=== PATIENT | male | born 1960 | race Caucasian/White ===

== ENCOUNTER → 2018-02-09 08:49 | Outpatient (CLI) | payer MEDICARE, MEDICAID, SELFPAY ==
--- NOTE | 2018-02-10 08:31 | PFT ---
INTRODUCTION: The patient is a 57-year-old male who presents for pulmonary function testing secondary to a diagnosis of COPD. Respiratory therapy reports good patient effort and reports no other concerns. INTERPRETATION: Forced expiration spirometry demonstrates the presence of a mild large airways obstructive ventilatory defect. Spirograms are of good quality and do not plateau indicating slow emptying of the lungs. Body plethysmography was performed and reveals lung volumes to be within normal limits. Diffusing capacity by single breath CO is within normal limits at 92% of predicted. IMPRESSION: These pulmonary function studies demonstrate the presence of a mild large airways obstructive ventilatory defect. Lung volumes and diffusing capacity are within normal limits. There are no previous pulmonary function studies available for comparison.
== END ==
DX: J44.9 Chronic obstructive pulmonary disease, unspecified (principal)
CPT/HCPCS: 94010; 94726; 94729; 94762

== ENCOUNTER → 2018-02-11 09:50 | Outpatient (CLI) | payer MEDICARE, MEDICAID, SELFPAY ==
[2018-02-11 09:55] VITALS: PULSE 75; PULSE 85; PULSE 87; PULSE 88; PULSE 89; PULSE 93; PULSE 95; O2SAT 97; O2SAT 98; O2SAT 99
--- OUTSIDE RECORDS SUMMARY | 2018-02-11 11:40 | XMS RPT_ITS ---
:1960 Author Organization OHIP Support Name Relationship Address Phone D Unavailable Unavailable Unavailable BARAHONA, CHINTAN Unavailable [address] + [address] [place] [address] D Unavailable Unavailable Unavailable BARAHONA, CHINTAN Unavailable [address] + [address] [place] [address] TEJA, CHINTAN Unavailable [address] + [place] [address] TEJA, CHINTAN Unavailable [address] + [place] [address] TEJA, CHINTAN Unavailable [address] + [place] [address] TEJA, CHINTAN Unavailable [address] + [place] [address] TEJA, CHINTAN Unavailable [address] + [place] [address] TEJA, CHINTAN Unavailable [address] [place] [address] TEJA, CHINTAN Unavailable [address] + [place] [address] TEJA, CHINTAN Unavailable [address] + [place] [address] TEJA, CHINTAN Unavailable [address] + [place] [address] TEJA, CHINTAN Unavailable [address] + [place] [address] TEJA, CHINTAN Unavailable [address] + [place] [address] TEJA, CHINTAN Unavailable [address] + [place] [address] TEJA, CHINTAN Unavailable Unavailable + TEJA, CHINTAN Unavailable [address] + [place] [address] Care Team Providers Name Role Phone ENEIDA CALABRESE Attending Unavailable ENEIDA CALABRESE Referring Unavailable Primay Care Physicia, No Primary Care Unavailable ENEIDA CALABRESE Consulting Unavailable ENEIDA CALABRESE Attending Unavailable ENEIDA CALABRESE Referring Unavailable Primay Care Physicia, No Primary Care Unavailable ENEIDA CALABRESE Consulting Unavailable PHYSICIAN, NONE Primary Care Unavailable POLO NEVAREZ, DR. MARY Smith Admitting Unavailable POLO NEVAREZ, DR. MARY Smith Attending Unavailable PHYSICIAN, NONE Referring Unavailable PHYSICIAN, NONE Primary Care Unavailable MARY CUELLAR MD Consulting Unavailable MARY CUELLAR MD Admitting Unavailable MARY CUELLAR MD Attending Unavailable MARY JACKSON Attending Unavailable PHYSICIAN, NONE Primary Care Unavailable MARY JACKSON Attending Unavailable PHYSICIAN, NONE Primary Care Unavailable MARY JACKSON Attending Unavailable PHYSICIAN, NONE Primary Care Unavailable MINNA MOORE (TECHNICAL SERVICE REP) Referring Unavailable LUDY DOMÍNGUEZ Attending Unavailable MINNA MOORE (TECHNICAL SERVICE REP) Referring Unavailable HAMINNA LOERA (TECHNICAL SERVICE REP) Referring Unavailable MINNA MOORE (TECHNICAL SERVICE REP) Attending Unavailable SREEDHAR AMANDA Attending Unavailable SREEDHAR AMANDA Referring Unavailable Sincere Perea Primary Care Unavailable SREEDHAR AMANDA Attending Unavailable SREEDHAR AMANDA Referring Unavailable PROBLEMS PROBLEMS DATE TYPE CONDITION / CODE ATTENDING STATUS SOURCE Unknown J44.9 - Chronic , Active [facility] 8 obstructive pulmonary ENE[facility] Community disease, unspecified / Hospital J44.9(ICD-10) Repository Active Supraventricular Bettye AMANDA Schneider 1 tachycardia / [facility] Other I47.1(ICD-10) [place] Repository Active Encounter for Bettye AMANDA 8 preprocedural [facility] Other cardiovascular [place] examination / Repository Z01.810(ICD-10) Admitting Unknown / UNK(Medicity VASIILY, Active [facility] 1 diagnosis Unknown) [facility] Repository Active Thoracic aortic ectasia / NA Active [place] 8 I77.810(ICD-10) Clinic Main [place] Repository Active Encounter for other NA Active [place] 8 preprocedural examination Clinic Main / Z01.818(ICD-10) [place] Repository Active Family history of NA Active [place] [address] familial Clinic Main hypercholesterolemia / [place] Z83.42(ICD-10) Repository Active Unknown / UNK(Medicity HAAGEN, Active [place] 8 Unknown) MINNA (TECHNICAL SERVICE REP) Clinic Main [place] Repository PROCEDURES PROCEDURES No Procedure Records FoundRESULTS RESULTS PULMONARY FUNCTION Observed: 02/10/2018 Status: F Source: [facility] TEST 8:34 AM [id number] [place], [place] [address]ET#: [id number] Acct: [id number]: DAMIAN TOM Rep #: [id number]: 1960 57 From: [address]: Status: JUVENCIO Arnold Dr: Date:Location: [facility] Sex: M CINTRODUCTION:The patient is a 57-year-old male who presents for pulmonary function testingsecondary to a diagnosis of COPD. Respiratory therapy reports good patient effort and reportsno other concerns.INTERPRETATION:Forced expiration spirometry demonstrates the presence of a mild large airways obstructiveventilatory defect. Spirograms are of good quality and do not plateau indicating slow emptyingof the lungs. Body plethysmography was performed and reveals lung volumes to be within normallimits. Diffusing capacity by single breath CO is within normal limits at 92% of predicted.IMPRESSION:These pulmonary function studies demonstrate the presence of a mild large airways obstructiveventilatory defect. Lung volumes and diffusing capacity are within normal limits. There areno previous pulmonary function studies available for comparison.02/10/18 0834 <Electronically signed by Ruddy Torres DO>Date Ruddy Torres DOCC : No Primary Care Physician; [facility] Date Dictated: 02/10/18830Date Transcribed: 02/10/18830Transcriptionist: Roseanne PROGRESS Observed: 02/09/2018 Status: COMPLETED Source: [place] 8:[address] [facility] REPOSITORY HNO ID: [id number]: Minna (Electric Knife Operator) HaagenService: (none)Author Type: Nurse PractitionerType: Progress NotesFiled: 02/09/2018 11:49 AMNote Text:Pt had appts with pulmonology and cardiology for pre-op risk assessment.Both found to be low risk.Recommendations below.Pt is considered low -risk for low-risk procedure.Thank you for allowing us to participate in the dare of this patient.Pulmonology:Preoperative Risk Calculation:The features of this patient' s history that contribute to the pulmonaryrisk assessment include: Age, COPD, General anesthesia, surgery >2 hours,smokingThis patient has a low 1.3% risk of post-operative pulmonarycomplications. The absolute assessment of risk/ benefit of the procedureis deferred to the primary team's evaluation.Postoperative respiratory failure (PRF) is considered as failure to weanfrom mechanical ventilation within 48 hours of surgery or unplannedintubation/reintubation postoperatively.RECOMMENDATIONS:In order to minimize the risk of complications and optimize pulmonarystatus, we recommend the following:- PFT, Lung volumes and DLCO - ORDERED ON THIS VISIT (per pulm -- do notneed to delay surgery for this)- Encourage aggressive incentive spirometry hourly both alvin-operativelyand post- operatively as tolerated- Early ambulation and physical therapy as tolerated post-operatively- Bronchodilators as needed for wheezing or shortness of breath- Oral steroids only if the patient appears to have component of COPD orasthma obstructive lung disease exacerbation, otherwise no routine steroidutilization needed- Ideally we recommend smoking cessation for >4 weeks before anyintervention- DVT / PE prophylaxis, mechanical and ideally pharmacologic- Post operatively may benefit from Nocturnal Bipap or cpap if maite, oreven postop NIPPV bilevel support if hypoventilation or narcoticutilization.CardiologyCLINICAL IMPRESSION/PLAN:Damian Tom has no clinical ischemic heart disease. His SVT isinactive. Exercise tolerance is limited somewhat by his lung problems andfoot pain, but there is no suggestion of significant ischemic heartdisease.?Risk of perioperative cardiac complication is low for the procedureanticipated. No further studies are recommended.?He has been encouraged to stop smoking and let us know if he hasrecurrence of his palpitations.?Thank you for asking me to see and rex take recommendations on DarrellLewis. This report is available to you in the shared medical record.?Written and verbal health teaching given to patient, patient verbalizesunderstanding and agrees with treatment plan. PROGRESS Observed: 02/08/2018 Status: COMPLETED Source: [place] 4:16 PM CLINIC OTHER CAMPUS REPOSITORY HNO ID: [id number]: Sreedhar Lucero: (none) Author Type: PhysicianType: Progress NotesFiled: 02/08/2018 5:40 PMNote Text:PERTINENT CARDIAC HISTORYPalpitationsSVTAortic root enlargementTobacco useADHERENCE TO GUIDELINESACE-I or ARB for HF with prior LVEF<40 (NQF 0081) - N/AASA or Plavix for ASHD (NQF 0067) - N/ABeta pasquale for ASHD with prior NH or prior LVEF<40 ( NQF 0070) - N/ABeta pasquale for HF with prior LVEF<40 (NQF 0083) - N/AACE-I or ARB for ASHD with DM or prior LVEF<40 (NQF 0066) - N/AStatin therapy for ASHD or FHL or DM - N/ABMI documented and plan if >25 (NQF 0421) - lifestyle recommendation formTobacco use screening and referral (NQF 0028) - lifestyle recommendationformRecommendation for whole food, plant based diet - lifestyle recommendationformCLINICAL IMPRESSION/PLAN:Damian Tom has no clinical ischemic heart disease. His SVT isinactive. Exercise tolerance is limited somewhat by his lung problems andfoot pain, but there is no suggestion of significant ischemic heartdisease.Risk of perioperative cardiac complication is low for the procedureanticipated. No further studies are recommended.He has been encouraged to stop smoking and let us know if he hasrecurrence of his palpitations.Thank you for asking me to see and rex take recommendations on DarrellLewis. This report is available to you in the shared medical record.Written and verbal health teaching given to patient, patient verbalizesunderstanding and agrees with treatment plan.DIAGNOSIS FOR VISIT:Preoperative cardiac risk assessmentSVTHISTORY OF PRESENT ILLNESSDarrcorina Tom is a 57 year old gentleman who is seen in consultation atthe request of Minna Moore CNP, for recommendations regardingperioperative cardiac risk. He had been evaluated several years ago, butsurgery was put on hold. He has now decided to proceed.He has previous history of SVT which has been inactive recently. He's hadno recent palpitations. He is off cardiac medications.He continues to smoke 1 half pack a day. No chest discomfort. He deniesorthopnea. His exercise capacity is limited by foot pain and by his COPD.He's had no edema, syncope, TIAs, amaurosis or claudication.ALLERGIES:ALLERGIESAllergen Reactions- Codeine UnknownCURRENT OUTPATIENT MEDICATIONS:albuterol (PROVENTIL) 2.5 mg/0.5 mL nebulizer solution Use 2.5 mg vianebulizer every 4 hours as needed.metroNIDAZOLE (FLAGYL ) [address] (PROTONIX) 40 mg tabletbudesonide-formoterol ( SYMBICORT) 160-4.5 mcg/actuation inhaler Inhale 2Puffs as instructed twice daily.albuterol HFA (PROAIR HFA) 90 mcg/actuation inhaler Inhale 2 Puffs asinstructed every 6 hours as needed.albuterol 2.5 mg /3 mL (0.083 %) INHALATION nebulizer solution Use 3 mLvia nebulizer one time only for 1 dose.PAST MEDICAL HISTORYDiagnosis Date- Aortic root dilation (HCC)- Arthritis left knee- COPD (chronic obstructive pulmonary disease) ([facility])- DDD (degenerative disc disease), lumbar- Knee pain, left 09/18/2011- SVT (supraventricular tachycardia) ([facility])- Tobacco use disorderPAST SURGICAL HISTORYProcedure Laterality Date- APPENDECTOMYFAMILY HISTORYProblem Relation Age of Onset- COPD Mother- Heart Mother [place] in 70s- Heart Father [place] in 70s- Stroke FatherSocial History Marital status: Spouse name: Years of education: Number of children: 4Occupational HistoryOccupation Employer Commentunemployed, constr*Social History Main Topics Smoking status: Current Every Day Smoker Packs/day: 1.00 Years: 44.00 Types: Cigarettes Start date: 07/03/1973 Smokeless status: Never Used Alcohol use : No Drug use: Yes Comment: marijuana dailySocial History Narrative 2 sons, 2 daughtersREVIEW OF SYSTEMS: General: No chills, fever, weight loss, night sweats. SHEENT: No change in vision or auditory acuity. Respiratory: Noproductive cough. Cardiac: As noted above. GI: No melena. : Nodysuria. Musculoskeletal: No myalgias. Neurologic: No strokes.Psychiatric: No depression. Endocrine: No diabetes. Hematologic: Noanemia.PHYSICAL EXAMINATION: S/he is alert and in no distressVITAL SIGNS: BP 115/61 Pulse 66 Wt 145 lb 9.6 oz (66.0kg)SHEENT: Skin is warm and dry. Pupils are round and reactive. Retinalvessels are grossly unremarkable. No xanthelasmas appreciated. Pharynxis benign. There is no oral cyanosis. Neck: supple. No adenopathy orthyroid enlargement. Chest: Clear to percussion and auscultation. Thereis mild expiratory prolongation. Trachea is midline. Air entry is equal.There is no chest wall tenderness. Cardiac: Regular rhythm. S1 and S2are normal. PMI is nondisplaced. There are no murmurs, rubs or gallops.No click is heard. Carotids are brisk without bruits. JVP is less than10 cm. Abdomen: Soft and nontender. There are no pulsatile masses orbruits. No liver enlargement. Bowel sounds are active. : Deferred.Extremities: No edema. Pulses are intact and symmetrical. No clubbing orcyanosis. No femoral bruits. Neurologic: Grossly normal motor andsensory. S/he is alert and oriented x4. Musculoskeletal: No jointdeformities.Echocardiogram was performed today. Left ventricular function is normal.Pulmonary pressures are normal. There is mild aortic root enlargement,unchanged from previous study.Recent labs were reviewed. CBC and chemistries are within normal limits.LDL is slightly elevated at 103.Prior stress test showed no ischemia.EKG shows sinus bradycardia and is within normal limits.Electronically Signed:Vijay Pacheco 2017 4:16 PMCC: Sincere Perea MD CNOV Observed: 02/08/2018 Status: COMPLETED Source: [place] 3:30 PM CLINIC OTHER CAMPUS REPOSITORY Office Visit (AGCARDWST) DAMIAN TOM ([id number]) 1960 [facility] Time Provider Department02/08/18 3:30 PM SREEDHAR AMANDA AGCARDWST During your visit today, we recorded the following information about you: Pulse Blood pressure Weight 66/ minute 115/61 66 kgSreedhar Amanda MD 02/08/2018 5:40 PM SignedPERTINENT CARDIAC HISTORYPalpitationsSVTAortic root enlargementTobacco useADHERENCE TO GUIDELINESACE-I or ARB for HF with prior LVEFANDlt;40 (NQF 0081) - N/AASA or Plavix for ASHD (NQF 0067) - N/ABeta pasquale for ASHD with prior NH or prior LVEFANDlt;40 (NQF 0070) - N/ABeta pasquale for HF with prior LVEFANDlt;40 (NQF 0083) - N/AACE -I or ARB for ASHD with DM or prior LVEFANDlt;40 (NQF 0066) - N/AStatin therapy for ASHD or FHL or DM - N/ ABMI documented and plan if ANDgt;25 (NQF 0421) - lifestyle recommendation formTobacco use screening and referral (NQF 0028) - lifestyle recommendation formRecommendation for whole food, plant based diet - lifestyle recommendation formCLINICAL IMPRESSION/PLAN:Damian Tom has no clinical ischemic heart disease. His SVT is inactive.Exercise tolerance is limited somewhat by his lung problems and foot pain, butthere is no suggestion of significant ischemic heart disease.Risk of perioperative cardiac complication is low for the procedureanticipated. No further studies are recommended.He has been encouraged to stop smoking and let us know if he has recurrence ofhis palpitations.Thank you for asking me to see and rex take recommendations on Damian Tom.This report is available to you in the shared medical record.Written and verbal health teaching given to patient, patient verbalizesunderstanding and agrees with treatment plan.DIAGNOSIS FOR VISIT:Preoperative cardiac risk assessmentSVTHISTORY OF PRESENT ILLNESSDarrcorina Tom is a 57 year old gentleman who is seen in consultation at [facility] of Minna Moore CNP, for recommendations regarding perioperativecardiac risk. He had been evaluated several years ago, but surgery was put onhold. He has now decided to proceed.He has previous history of SVT which has been inactive recently. He's had norecent palpitations. He is off cardiac medications.He continues to smoke 1 half pack a day. No chest discomfort. He deniesorthopnea. His exercise capacity is limited by foot pain and by his COPD. He'shad no edema, syncope, TIAs, amaurosis or claudication.ALLERGIES: ALLERGIESAllergen Reactions- Codeine UnknownCURRENT OUTPATIENT MEDICATIONS:albuterol (PROVENTIL ) 2.5 mg/0.5 mL nebulizer solution Use 2.5 mg via nebulizerevery 4 hours as needed.metroNIDAZOLE (FLAGYL ) [address] (PROTONIX) 40 mg tabletbudesonide-formoterol (SYMBICORT) 160-4.5 mcg/ actuation inhaler Inhale 2 Puffsas instructed twice daily.albuterol HFA (PROAIR HFA) 90 mcg/actuation inhaler Inhale 2 Puffs asinstructed every 6 hours as needed.albuterol 2.5 mg /3 mL (0.083 %) INHALATION nebulizer solution Use 3 mL vianebulizer one time only for 1 dose.PAST MEDICAL HISTORYDiagnosis Date- Aortic root dilation (HCC)- Arthritis left knee- COPD (chronic obstructive pulmonary disease) ([facility])- DDD ( degenerative disc disease), lumbar- Knee pain, left 09/18/2011- SVT (supraventricular tachycardia) ([facility])- Tobacco use disorderPAST SURGICAL HISTORYProcedure Laterality Date- APPENDECTOMYFAMILY HISTORYProblem Relation Age of Onset- COPD Mother- Heart Mother [place] in 70s- Heart Father [place] in 70s- Stroke FatherSocial History Marital status: Spouse name: Years of education: Number of children: 4Occupational HistoryOccupation Employer Commentunemployed, constr* Social History Main Topics Smoking status: Current Every Day Smoker Packs/day: 1.00 Years: 44.00 Types: Cigarettes Start date: 07/03/1973 Smokeless status: Never Used Alcohol use: No Drug use: Yes Comment: marijuana dailySocial History Narrative 2 sons, 2 daughtersREVIEW OF SYSTEMS: General : No chills, fever, weight loss, night sweats.SHEENT: No change in vision or auditory acuity. Respiratory : No productivecough. Cardiac: As noted above. GI: No melena. : No dysuria.Musculoskeletal: No myalgias. Neurologic: No strokes. Psychiatric: Nodepression. Endocrine: No diabetes. Hematologic: No anemia.PHYSICAL EXAMINATION: S/he is alert and in no distressVITAL SIGNS: BP 115/61 Pulse 66 Wt 145 lb 9.6 oz (66.0kg)SHEENT: Skin is warm and dry. Pupils are round and reactive. Retinal vesselsare grossly unremarkable. No xanthelasmas appreciated. Pharynx is benign.There is no oral cyanosis. Neck: supple. No adenopathy or thyroidenlargement. Chest: Clear to percussion and auscultation. There is mildexpiratory prolongation. Trachea is midline. Air entry is equal. There is nochest wall tenderness. Cardiac: Regular rhythm. S1 and S2 are normal. PMI isnondisplaced. There are no murmurs, rubs or gallops. No click is heard.Carotids are brisk without bruits. JVP is less than 10 cm. Abdomen: Soft andnontender. There are no pulsatile masses or bruits. No liver enlargement.Bowel sounds are active. : Deferred. Extremities: No edema. Pulses areintact and symmetrical. No clubbing or cyanosis. No femoral bruits.Neurologic: Grossly normal motor and sensory. S/he is alert and oriented x4.Musculoskeletal: No joint deformities.Echocardiogram was performed today. Left ventricular function is normal.Pulmonary pressures are normal. There is mild aortic root enlargement, unchanged from previous study.Recent labs were reviewed. CBC and chemistries are within normal limits. LDL isslightly elevated at 103.Prior stress test showed no ischemia.EKG shows sinus bradycardia and is within normal limits.Electronically Signed:Vijay Pacheco 2017 4:16 PMCC: Harinder Hutton MD 02/08/2018 4:17 PM SignedLIFESTYLE CHANGEA healthy lifestyle is the most important component of your overall treatmentplan. Please give serious thought to the following areas and commit to makinglong term changes.EAT A WHOLE FOOD, PLANT BASED DIETThe nutrition your body gets is more important than the medicine you take.What matters most is the overall way you eat. We encourage you to minimize theuse of animal products (which include dairy and all meats except fatty fish)and use whole, unprocessed plant foods to provide your protein, vitamins andother nutrients. We have a lot of information to share with you on this topic. We also hold Shared Medical Appointments, where you can come visit with in the company of other patients and spend over an hour talking aboutthe challenges of changing the way you eat. This is not a ANDquot;dietANDquot;.It is a way of life that you will keep with you.EXERCISE REGULARLYIt is not important to spend hours in the gym, lifting weights and perspiringheavily. A total of 2-3 hours per week of aerobic (causing you to bemoderately short of breath) exercise is sufficient to improve your health.Talk to us before you begin a new exercise program, if you have heart diseaseor experience shortness of breath or chest pain.REDUCE STRESSChronic emotional and physical stress leads to disease. Ways of reducingstress include meditation, visualization, prayer, yoga and other forms ofrelaxation therapy. Consistency is the dumont. Find a technique that works foryou and do it every day.CULTIVATE RELATIONSHIPSLoneliness and isolation have a major negative impact on health. Seek outothers who can love, care for and nurture you. Avoid hurtful relationships.MAINTAIN IDEAL BODY WEIGHTThe best way to do this is to do all the things above. Our bodies naturallyfind the right weight if we keep moving and feed ourselves the right food. Ifyour BMI is greater than 25, we strongly recommend a referral to a weightmanagement program. Please speak to us or your family physician aboutavailable programs.AVOID NICOTINE IN ALL FORMSThis includes all tobacco products, whether chewed, smoked, vaped, or rubbed onthe skin. Smoking cessation programs, which can make use of tobaccosubstitutes, medications to suppress cravings and behavior management, areavailable. Please contact your family physician about programs in your area.Referring Provider: SREEDHAR AMANDA [[id number]]Allergies As of Date: 02/08/2018 Noted Allergy ReactionCODEINE 11/11/2010 16 - UnknownDate Reviewed: 02/08/2018Reviewed by: Ciara Strickland) Red - Fully AssessedReason for Visit: Recheck [92]Primary Visit Diagnosis:Preop cardiovascular exam [Z01.810 ] Other Visit Diagnosis:SVT (supraventricular tachycardia) (HCC) [I47.1]Prescriptions as of 02/08/2018 Sig: ALBUTEROL SULFATE CONCENTRATE* Use 2.5 mg via nebulizer ever* METRONIDAZOLE 500 MG TABLET PANTOPRAZOLE 40 MG TABLET,DEL* BUDESONIDE-FORMOTEROL HFA 160* Inhale 2 Puffs as instructed * ALBUTEROL SULFATE HFA 90 MCG/* Inhale 2 Puffs as instructed * ALBUTEROL SULFATE 2.5 MG/3 ML* Use 3 mL via nebulizer one ti*Problem List As Of Date 02/08/2018 Noted Resolved SVT (supraventricular tachycardia) [I47.1] INVALID FOR* Tobacco use disorder [F17.200] COPD (chronic obstructive pulmonary disease) [J* DDD (degenerative disc disease), lumbar [ M51.36] Knee pain, left [M25.562] INVALID FOR* Backache, unspecified [M54.9] INVALID FOR* Dilated aortic root (HCC) [I77.810] INVALID FOR* Other instructions from your clinician: LIFESTYLE CHANGE A healthy lifestyle is the most important component of your overall treatment plan. Please give serious thought to the following areas and commit to making custodial changes. EAT A WHOLE FOOD, PLANT BASED DIET The nutrition your body gets is more important than the medicine you take. What matters most is the overall way you eat. We encourage you to minimize the use of animal products (which include dairy and all meats except fatty fish ) and use whole, unprocessed plant foods to provide your protein, vitamins and other nutrients. We have a lot of information to share with you on this topic. We also hold Shared Medical Appointments, where you can come visit with Dr. Amanda in the company of other patients and spend over an hour talking about the challenges of changing the way you eat. This is not a diet. It is a way of life that you will keep with you. EXERCISE REGULARLY It is not important to spend hours in the gym, lifting weights and perspiring heavily. A total of 2-3 hours per week of aerobic (causing you to be moderately short of breath) exercise is sufficient to improve your health. Talk to us before you begin a new exercise program, if you have heart disease or experience shortness of breath or chest pain. REDUCE STRESS Chronic emotional and physical stress leads to disease. Ways of reducing stress include meditation, visualization, prayer, yoga and other forms of relaxation therapy. Consistency is the dumont. Find a technique that works for you and do it every day. CULTIVATE RELATIONSHIPS Loneliness and isolation have a major negative impact on health. Seek out others who can love, care for and nurture you. Avoid hurtful relationships. MAINTAIN IDEAL BODY WEIGHT The best way to do this is to do all the things above. Our bodies naturally find the right weight if we keep moving and feed ourselves the right food. If your BMI is greater than 25, we strongly recommend a referral to a weight management program. Please speak to us or your family physician about available programs. AVOID NICOTINE IN ALL FORMS This includes all tobacco products, whether chewed, smoked, vaped, or rubbed on the skin. Smoking cessation programs, which can make use of tobacco substitutes, medications to suppress cravings and behavior management, are available. Please contact your family physician about programs in your area.Follow-up and Disposition History RecordedEncounter Number: [id number] Status:Closed by SREEDHAR AMANDA MD on 02/08/18 PROGRESS Observed: 02/03/2018 Status: COMPLETED Source: [place] 8:[address] [facility] REPOSITORY [facility] ID: [id number]: [place] MirService: (none) Author Type: PhysicianType: Progress NotesFiled: 02/03/2018 8:30 AMNote Text: PULMONARY MEDICINE HISTORY AND PHYSICALPatient Name: Damian Rosas Keaton? ? CARE PHYSICIAN: Sincere Perea MD ?REFERRING PHYSICIAN: SelfCHIEF COMPLAINT : PRE-OP clearanceASSESSMENT/PLAN:1. Preoperative examination - ICD9: V72.84, ICD10: Z01.818 (primarydiagnosis)- patient has low risk 1.6% of pulmonary complication rate2. Chronic obstructive pulmonary disease, unspecified COPD type (HCC) -ICD9 : 496, ICD10: J44.9- continue Symbicort and nebulizer.3. Tobacco use disorder - ICD9: 305.1, ICD10: F17.07157 mins spent on counseling for smoking cessation. Various treatmentoptions including nicotine gums, patches and medicines were discussed .Patient voiced understanding and will let me know when ready to quit.4. SVT (supraventricular tachycardia) (HCC) - ICD9: 427.89, ICD10: I47.15. DDD ( degenerative disc disease), lumbar - ICD9: 722.52, ICD10: M51.366. Dilated aortic root (HCC ) - ICD9: 447.71, ICD10: I77.810Preoperative Risk Calculation:The features of this patient's history that contribute to the pulmonaryrisk assessment include: Age , COPD, General anesthesia, surgery >2 hours,smokingThis patient has a low 1.3% risk of post-operative pulmonarycomplications. The absolute assessment of risk/ benefit of the procedureis deferred to the primary team's evaluation.Postoperative respiratory failure (PRF) is considered as failure to weanfrom mechanical ventilation within 48 hours of surgery or unplannedintubation/reintubation postoperatively.RECOMMENDATIONS:In order to minimize the risk of complications and optimize pulmonarystatus, we recommend the following:- PFT, Lung volumes and DLCO - ORDERED ON THIS VISIT- Encourage aggressive incentive spirometry hourly both alvin-operativelyand post-operatively as tolerated- Early ambulation and physical therapy as tolerated post-operatively- Bronchodilators as needed for wheezing or shortness of breath- Oral steroids only if the patient appears to have component of COPD orasthma obstructive lung disease exacerbation, otherwise no routine steroidutilization needed- Ideally we recommend smoking cessation for >4 weeks before anyintervention- DVT / PE prophylaxis, mechanical and ideally pharmacologic- Post operatively may benefit from Nocturnal Bipap or cpap if maite, oreven postop NIPPV bilevel support if hypoventilation or narcoticutilization.RTC in 2 weeksMuronald Domínguez MDInstructions:Written and verbal health teaching given to patient, patient verbalizesunderstanding and agrees with treatment plan.HISTORY OF PRESENT ILLNESS: This patient is here for first Pulmonaryoffice visit and consultation.. I reviewed available objective dataincluding imaging as available. Damian Tom is a 57 year old male, with a history of COPD and ongoingtobacco use. He is going for surgery on Thursday of the and needsurgical clearance. Patient has ongoing SOB/ BAUER which is mild to moderate,worse with exertion relieved with rest, at baseline. Denied any fevers/chills /nausea /vomiting /diarrhea, hemoptysis or weight changes.There isno daily cough or sputum production.Claims to be complaint withmedications. He smokes 1/2 PPD. Doesn't use any oxygen. 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 He started usingsymbicort and nebulizer recently.DATA:Diagnostic tests reviewed for today's visit, films/specimens werepersonally reviewed by me:OTHER TESTING:Echo:Chest xray: COPD . hyperinflationCT CHEST:PFT:Sat%:PAST MEDICAL HISTORYDiagnosis Date- Aortic root dilation (HCC)- Arthritis left knee- COPD ( chronic obstructive pulmonary disease) (HCC)- DDD (degenerative disc disease), lumbar- Knee pain, left 09/18/2011- SVT (supraventricular tachycardia) ([facility])- Tobacco use disorderPAST SURGICAL HISTORYProcedure Laterality Date- APPENDECTOMYFAMILY HISTORYProblem Relation Age of Onset- COPD Mother- Heart Mother [place] in 70s- Heart Father [place] in 70s- Stroke FatherNo reported family hx of ILD fibrosis, PAH, Tb , lung cancer, K1IVaonsebpoypRkxwgm HistorySubstance Use Topics- Smoking status: Current Every Day Smoker Packs/day: 1.00 Years: 44.00 Types: Cigarettes Start date: 07/03/1973- Smokeless tobacco: Never Used- Alcohol use NoAmbulatory, see vaccine HX,ALLERGIES:ALLERGIESAllergen Reactions- Codeine UnknownCURRENT OUTPATIENT MEDICATIONS:budesonide-formoterol (SYMBICORT) 160-4.5 mcg/actuation inhaler Inhale 2Puffs as instructed twice daily.albuterol HFA (PROAIR HFA) 90 mcg/actuation inhaler Inhale 2 Puffs asinstructed every 6 hours as needed.albuterol 2.5 mg /3 mL (0.083 %) INHALATION nebulizer solution Use 3 mLvia nebulizer one time only for 1 dose.albuterol (PROVENTIL) 2.5 mg/0.5 mL nebulizer solution Use 2.5 mg vianebulizer every 4 hours as needed.metroNIDAZOLE (FLAGYL) [address] (PROTONIX) 40 mg tabletREVIEW OF SYSTEMSHEENT: Negative for frequent or significant headaches, No changes inhearing or vision, no epistaxis or other nasal problems, Denieslymphadenopathy; No tinnitus.CARDIOVASCULAR: no palpitations, no arrythmia,no syncopeGASTROINTESTINAL: Negative for abdominal discomfort, blood in stools orblack stools or change in bowel habits, No active hepatitis. No biliarycolic.GENITOURINARY: No history of dysuria, frequency or incontinence, mass,hematuria,FLOW MANAGER: Not reviewedMUSCULOSKELETAL: No serositis or scleroderma and joint issuesNEUROLOGIC:Negative history of dizziness/lightheadedness, vertigo,numbness/tingling of hands or feetSKIN: Negative for lesions, rash, and itching. No jaundicePSYCHIATRIC: Negative for mood disorder and recent psychosocial stressors.HEMATOLOGIC/LYMPHATIC/IMMUNOLOGIC: no anemia. No hx lymphoma. Deniesbleeding diathesis.ENDOCRINE: Negative for cold or heat intolerance, polyuria, polydipsiaand goiter. denies thyroid issues.The 12 points ROS was done and negative except for HPI.PHYSICAL EXAMINATION:VITAL SIGNS: BP 108/77 Pulse 65 Resp 18 Ht 5' 11.5 (1.82m) Wt 144lb (65.3kg) SpO2 98[Room air]% BMI 19.81 kg/(m2) .General appearance: Well-developed .Cordial. Comprehends well.HEENT : Alert and oriented x 3, No acute distress. Pupils are equal andreactive to light with intact ocular movements. Moist mucous membranes,clear mucosa, trachea midline no thyromegaly , no JVD.Lungs: Clear to auscultation. No wheeze, crackles or rales.Heart: Regular rate and rhythm. No significant murmur, gallops or rubs.PMI . Good perfusion distally radial.ABD: Abdomen soft, non-tender, non distended. Bowel sounds normal. Nomasses, organomegaly.Musculoskeletal: no clubbing, cynanosis and edema on extremities. No skinrashesPSYCH: Normal mood/affect. Long and short term memory seems appropriate.Neuro: Nonfocal/ IntactLAST LAB RESULTS:No results found for this basename: inr:1,ptsec:1Glucose (mg/dL)Date Value02/01/2018 86 Potassium (mmol/L)Date Value02/01/2018 4.8 Sodium (mmol/L)Date Value02/01/2018 137 Chloride (mmol/L)Date Value02/01/2018 100 CO2 (mmol/L) Date Value02/01/2018 26 Creatinine (mg/dL)Date Value02/01/2018 0.80-------- --BUN (mg/dL)Date Value02/01/2018 7 Anion Gap (mmol/L)Date Value02/01/2018 11 Calcium (mg/dL)Date Value02/01/2018 9.7 Protein, Total (g/dL)Date Value02/01/2018 7.7 Albumin (g/dL)Date Value02/01/2018 3.9 Bilirubin, Total (mg/dL)Date Value02/01/2018 0.5 Alkaline Phosphatase (U/L)Date Value02/01/2018 89 AST (U/L)Date Value02/01/2018 55 ALT (U/L)Date Value02/01/2018 49 GlucoseDate Value Ref Range Ilqnly8402/01/2018 86 74 - 99 mg/dL FinalComment:The [place] Diabetes Association (ADA) provides guidance for cutoffvaluesfor fasting glucose and random glucose. The ADA defines fasting as nocaloricintake for at least 8 hours. Fasting plasma glucose results between 100 qg680cf/dL indicate increased risk for diabetes (prediabetes).Fasting plasma glucose results greater than or equal to 126 mg/ dL meet thecriteria for diagnosis of diabetes. In the absence of unequivocalhyperglycemia, results should be confirmed by repeat testing. In a patientwith classic symptoms of hyperglycemia or hyperglycemic crisis, randomplasmaglucose results greater than or equal to 200 mg/dL meet the criteria fordiagnosis of diabetes.Reference: Standards of Medical Care in Diabetes 2016, [place] DiabetesAssociation. Diabetes Care. 2016.39(Suppl 1). Medications reviewedEducation provided today regarding the stated disease statesVaccinations:PneumococcalInfluenzaPrevnar 13Electronically Signed:Vijay Sullivan 2017 CNOV Observed: 02/03/2018 Status: COMPLETED Source: [place] 8:[address] [facility] REPOSITORY Office Visit ([facility]) ---------DAMIAN TOM ([id number]) 1960 [facility] Time Provider Department02/03/18 8:00 AM LUDY DOMÍNGUEZ [facility] During your visit today, we recorded the following information about you: Pulse Respiration Blood pressure Weight 65/minute 18/minute 108/77 65.3 kg Height 1.816 mHeather Tasley 02/03/2018 8:08 AM SignedCOPD Assessment Test (CAT)Scale: 0 being the least and 5 the worse ScoreI never cough 0 1 2 3 4 5 I cough all the time 3I have no mucus at all 0 1 2 3 4 5 My chest is completely full of mucus 2My chest does not feel tight at all 0 1 2 3 4 5 My chest feels very tight 2When I walk up a hill or a flight of stairs, I am not breathless 0 1 2 3 4 5 When I walk up a hill or flight of stairs, I am very breathless 3I am not limited doing any activities at home 0 1 2 3 4 5 I am very limiteddoing any activities at home 3I am confident leaving home despite my lung disease 0 1 2 3 4 5 I am notconfident leaving home because of my lung disease 2I sleep soundly 0 1 2 3 4 5 I don't sleep soundly because of my lung [id number] have lots of energy 0 1 2 3 4 5 I have no energy at all 2 TOTAL SCORE 18Hortencia Carlie Domínguez MD 02/03/2018 8:30 AM Addendum PULMONARY MEDICINE HISTORY AND PHYSICALPatient Name : Damian Tom? ? CARE PHYSICIAN: Sincere Perea MD ?REFERRING PHYSICIAN: SelfCHIEF COMPLAINT: PRE-OP clearanceASSESSMENT/PLAN:1. Preoperative examination - ICD9 : V72.84, ICD10: Z01.818 (primary diagnosis)- patient has low risk 1.6% of pulmonary complication rate2. Chronic obstructive pulmonary disease, unspecified COPD type (HCC) - ICD9:496, ICD10: J44.9- continue Symbicort and nebulizer.3. Tobacco use disorder - ICD9: 305.1, ICD10: F17.56699 mins spent on counseling for smoking cessation. Various treatment optionsincluding nicotine gums, patches and medicines were discussed . Patient voicedunderstanding and will let me know when ready to quit.4. SVT ( supraventricular tachycardia) (HCC) - ICD9: 427.89, ICD10: I47.15. DDD (degenerative disc disease), lumbar - ICD9: 722.52, ICD10: M51.366. Dilated aortic root (HCC) - ICD9: 447.71, ICD10: I77.810Preoperative Risk Calculation:The features of this patient's history that contribute to the pulmonary riskassessment include: Age, COPD, General anesthesia, surgery ANDgt;2 hours, smokingThis patient has a low 1.3% risk of post-operative pulmonary complications.The absolute assessment of risk/ benefit of the procedure is deferred to theprimary team's evaluation.Postoperative respiratory failure (PRF ) is considered as failure to wean frommechanical ventilation within 48 hours of surgery or unplannedintubation/reintubation postoperatively.RECOMMENDATIONS:In order to minimize the risk of complications and optimize pulmonary status,we recommend the following:- PFT, Lung volumes and DLCO - ORDERED ON THIS VISIT- Encourage aggressive incentive spirometry hourly both alvin-operatively andpost-operatively as tolerated- Early ambulation and physical therapy as tolerated post-operatively- Bronchodilators as needed for wheezing or shortness of breath- Oral steroids only if the patient appears to have component of COPD or asthmaobstructive lung disease exacerbation, otherwise no routine steroid utilizationneeded- Ideally we recommend smoking cessation for ANDgt;4 weeks before any intervention- DVT / PE prophylaxis, mechanical and ideally pharmacologic- Post operatively may benefit from Nocturnal Bipap or cpap if maite, or evenpostop NIPPV bilevel support if hypoventilation or narcotic utilization.RTC in 2 weeksMuhamlibrado Domínguez MDInstructions:Written and verbal health teaching given to patient, patient verbalizesunderstanding and agrees with treatment plan.HISTORY OF PRESENT ILLNESS: This patient is here for first Pulmonary officevisit and consultation.. I reviewed available objective data including imagingas available. Damian Tom is a 57 year old male, with a history of COPD and ongoingtobacco use. He is going for surgery on Thursday of the and needsurgical clearance. Patient has ongoing SOB/BAUER which is mild to moderate,worse with exertion relieved with rest, at baseline. Denied any fevers /chills/nausea /vomiting /diarrhea, hemoptysis or weight changes.There is no dailycough or sputum production.Claims to be complaint with medications. He smokes1/2 PPD. Doesn't use any oxygen. 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 He started using symbicort and nebulizer recently.DATA:Diagnostic tests reviewed for today's visit, films/specimens were personallyreviewed by me:OTHER TESTING:Echo:Chest xray: COPD . hyperinflationCT CHEST:PFT:Sat%:PAST MEDICAL HISTORYDiagnosis Date- Aortic root dilation (HCC)- Arthritis left knee- COPD (chronic obstructive pulmonary disease) ([facility])- DDD (degenerative disc disease), lumbar- Knee pain, left 09/18/2011- SVT (supraventricular tachycardia) ([facility])- Tobacco use disorderPAST SURGICAL HISTORYProcedure Laterality Date- APPENDECTOMYFAMILY HISTORYProblem Relation Age of Onset- COPD Mother- Heart Mother [place] in 70s- Heart Father [place] in 70s- Stroke FatherNo reported family hx of ILD fibrosis, PAH, Tb, lung cancer, A1AT deficiencySocial HistorySubstance Use Topics- Smoking status: Current Every Day Smoker Packs/day: 1.00 Years: 44.00 Types: Cigarettes Start date: 07/03/1973- Smokeless tobacco: Never Used- Alcohol use NoAmbulatory, see vaccine HX, ALLERGIES:ALLERGIESAllergen Reactions- Codeine UnknownCURRENT OUTPATIENT MEDICATIONS: budesonide-formoterol (SYMBICORT) 160-4.5 mcg/actuation inhaler Inhale 2 Puffsas instructed twice daily.albuterol HFA (PROAIR HFA) 90 mcg/actuation inhaler Inhale 2 Puffs asinstructed every 6 hours as needed.albuterol 2.5 mg /3 mL (0.083 %) INHALATION nebulizer solution Use 3 mL vianebulizer one time only for 1 dose.albuterol (PROVENTIL) 2.5 mg/0.5 mL nebulizer solution Use 2.5 mg via nebulizerevery 4 hours as needed.metroNIDAZOLE (FLAGYL) [address] (PROTONIX) 40 mg tabletREVIEW OF SYSTEMSHEENT: Negative for frequent or significant headaches, No changes in hearing orvision, no epistaxis or other nasal problems, Denies lymphadenopathy; Notinnitus.CARDIOVASCULAR: no palpitations, no arrythmia,no syncopeGASTROINTESTINAL: Negative for abdominal discomfort, blood in stools or blackstools or change in bowel habits, No active hepatitis. No biliary colic.GENITOURINARY: No history of dysuria, frequency or incontinence, mass,hematuria,FLOW MANAGER: Not reviewedMUSCULOSKELETAL: No serositis or scleroderma and joint issuesNEUROLOGIC:Negative history of dizziness/lightheadedness, vertigo,numbness/tingling of hands or feetSKIN: Negative for lesions, rash, and itching. No jaundicePSYCHIATRIC: Negative for mood disorder and recent psychosocial stressors.HEMATOLOGIC/LYMPHATIC/IMMUNOLOGIC: no anemia. No hx lymphoma. Denies bleedingdiathesis.ENDOCRINE: Negative for cold or heat intolerance, polyuria, polydipsia andgoiter. denies thyroid issues.The 12 points ROS was done and negative except for HPI.PHYSICAL EXAMINATION:VITAL SIGNS: BP 108/77 Pulse 65 Resp 18 Ht 5' 11.5ANDquot; ( 1.82m) Wt 144lb (65.3kg) SpO2 98[Room air]% BMI 19.81 kg/(m2).General appearance: Well- developed .Cordial. Comprehends well.HEENT : Alert and oriented x 3, No acute distress. Pupils are equal andreactive to light with intact ocular movements. Moist mucous membranes, clearmucosa, trachea midline no thyromegaly , no JVD.Lungs: Clear to auscultation. No wheeze, crackles or rales.Heart: Regular rate and rhythm. No significant murmur, gallops or rubs. PMI . Good perfusion distally radial.ABD: Abdomen soft, non-tender, non distended. Bowel sounds normal. No masses, organomegaly.Musculoskeletal: no clubbing, cynanosis and edema on extremities. No skinrashesPSYCH: Normal mood/ affect. Long and short term memory seems appropriate.Neuro: Nonfocal/ IntactLAST LAB RESULTS:No results found for this basename: inr:1,ptsec:1Glucose (mg/dL)Date 02/01/2018 86 Potassium (mmol/L)Date 02/01/2018 4.8 Sodium (mmol/L)Date 02/01/2018 137 Chloride (mmol/L)Date 02/01/2018 100 CO2 (mmol/L)Date 02/01/2018 26 Creatinine (mg/dL)Date 02/01/2018 0.80 BUN (mg/dL)Date 02/01/2018 7 Anion Gap (mmol/L)Date 02/01/2018 11 Calcium (mg/dL)Date 02/01/2018 9.7 Protein, Total (g/dL)Date 02/01/2018 7.7 Albumin (g/dL)Date 02/01/2018 3.9 Bilirubin, Total (mg/dL)Date Value02/01/2018 0.5 Alkaline Phosphatase (U/L)Date Value 89 AST (U/L)Date Value02/01/2018 55 ALT (U/L)Date Value2017 49 GlucoseDate Value Ref Range Wihtis8602/01/2018 86 74 - 99 mg/dL FinalComment:The [place] Diabetes Association (ADA) provides guidance for cutoff valuesfor fasting glucose and random glucose. The ADA defines fasting as no caloricintake for at least 8 hours. Fasting plasma glucose results between 100 to 125mg/dL indicate increased risk for diabetes (prediabetes) .Fasting plasma glucose results greater than or equal to 126 mg/dL meet thecriteria for diagnosis of diabetes. In the absence of unequivocalhyperglycemia, results should be confirmed by repeat testing. In a patientwith classic symptoms of hyperglycemia or hyperglycemic crisis, random plasmaglucose results greater than or equal to 200 mg/dL meet the criteria fordiagnosis of diabetes.Reference: Standards of Medical Care in Diabetes 2016, [place] DiabetesAssociation. Diabetes Care. 2016.39(Suppl 1).-- --------Medications reviewedEducation provided today regarding the stated disease statesVaccinations:PneumococcalInfluenzaPrevnar 13Electronically Signed: Vijay Sullivan 2017Referring Provider: SELF [[id number]]Allergies As of Date: 02/03/2018 Noted Allergy ReactionCODEINE 11/11/2010 16 - UnknownDate Reviewed : 02/03/2018Reviewed by: Ludy Domínguez - Fully AssessedReason for Visit: Medical Clearance [1983] Primary Visit Diagnosis:Preoperative examination [Z01.818] Other Visit Diagnoses:Chronic obstructive pulmonary disease, unspecified COPD type (HCC) [J44.9] Tobacco use disorder [F17.200] SVT (supraventricular tachycardia) ( HCC) [I47.1] DDD (degenerative disc disease), lumbar [M51.36] Dilated aortic root (HCC) [I77.810]Order(s):SIX MINUTE WALK [[id number]] Order #: [id number] FUTURE SPIROMETRY BASELINE ONLY [] Order #: [id number] FUTURE OXIMETRY - NOCTURNAL [[id number]] Order #: [id number] LUNG DIFFUSION CAPACITY (DLCO) [] Order #: [id number] FUTURE LUNG VOLUMES [[id number]] Order #: [id number] FUTUREPrescriptions as of 02/03/2018 Sig: BUDESONIDE-FORMOTEROL HFA 160* Inhale 2 Puffs as instructed * ALBUTEROL SULFATE HFA 90 MCG/* Inhale 2 Puffs as instructed * ALBUTEROL SULFATE 2.5 MG/3 ML* Use 3 mL via nebulizer one ti* ALBUTEROL SULFATE CONCENTRATE* Use 2.5 mg via nebulizer ever* METRONIDAZOLE 500 MG TABLET PANTOPRAZOLE 40 MG TABLET,DEL*Medication notes this encounter ALBUTEROL SULFATE CONCENTRATE 2.5 MG/0.5 ML SOLUTION FOR NEBULIZATION >> Hortencia Ibarra 02/03/2018 8: 05 AM >> HORTENCIA IBARRA ThuFeb 03, 2018 8:05 AM No longer taking METRONIDAZOLE 500 MG TABLET >> Hortencia Ibarra 02/03/2018 8:05 AM >> HORTENCIA IBARRA ThuFeb 03, 2018 8:05 AM No longer taking PANTOPRAZOLE 40 MG TABLET,DELAYED RELEASE >> Hortencia Ibarra 02/03/2018 8:05 AM >> HORTENCIA IBARRA ThuFeb 03, 2018 8:05 AM No longer taking PREDNISONE 20 MG TABLET >> Hortencia Ibarra 02/03/2018 8:05 AM >& gt; HORTENCIA IBARRA [facility] Feb 03, 2018 8:05 AM No longer takingProblem List As Of Date 02/03/2018 Noted Resolved SVT (supraventricular tachycardia) [I47.1] INVALID FOR* Tobacco use disorder [F17.200] COPD (chronic obstructive pulmonary disease) [J* DDD (degenerative disc disease), lumbar [M51.36] Knee pain, left [M25.562] INVALID FOR* Backache, unspecified [M54.9] INVALID FOR* Dilated aortic root (HCC) [I77.810] INVALID FOR*Visit Notes:>> Hortencia Ibarra Wed Feb 03, 2018 8:07 AM Status: SignedCOPD Assessment Test (CAT)Scale: 0 being the least and 5 the worse ScoreI never cough 0 1 2 3 4 5 I cough all the time 3I have no mucus at all 0 1 2 3 4 5 My chest is completely full ofmucus 2My chest does not feel tight at all 0 1 2 3 4 5 My chest feels very tight 2When I walk up a hill or a flight of stairs, I am not breathless 0 1 2 3 45 When I walk up a hill or flight of stairs, I am very breathless 3I am not limited doing any activities at home 0 1 2 3 4 5 I am verylimited doing any activities at home 3I am confident leaving home despite my lung disease 0 1 2 3 4 5 I am notconfident leaving home because of my lung disease 2I sleep soundly 0 1 2 3 4 5 I don't sleep soundly because of my lungdisease 1I have lots of energy 0 1 2 3 4 5 I have no energy at all 2 TOTAL SCORE 18Heather Tasley MAMedications Discontinued During This Encounter predniSONE (DELTASONE) 20 mg tablet 01/03/2018 02/03/2018 Class: Historical Med Sig: Disc: Reason for discontinue is not on file.Disposition: Return in about 2 weeks (around 02/17/2018).Follow-up and Disposition History RecordedEncounter Number: [id number] Status:Closed by LUDY DOMÍNGUEZ MD on 02/03/18 CNCO Observed: 02/02/2018 Status: COMPLETED Source: [place] 12:00 AM [facility] RE[facility]IT[facility] Letter TextChrisnelson Moore CNP [facility] MEDICINEDaleslye Rosas [address] [address] Clinic #: [id number]/12/2017Dear Mr. Tom, I have received the results of your recent tests.The results of your lab tests were either normal or within the acceptablerange.We can discuss this at your next visit.Please do not hesitate to contact me with any questions.Sincerely,Minna Moore CNP [facility] Departmentelectronically signed to expedite mailing PROGRESS Observed: 02/01/2018 Status: COMPLETED Source: [place] 11:[address] [facility] REPOSITORY HNO ID: [id number]: Yee (Rt) Avelino Gomez: (none)Author Type: TechnicianType: Progress NotesFiled: 02/01/2018 11:46 AMNote Text: Radiology Service Progress NotePATIENT NAME: Damian TomMRN: [id number] OF SERVICE: February 01, 2018TIME: 11:45 AMPATIENT IDENTITY VERIFICATION COMPLETED USING TWO (2) METHODS: Patientconfirmed name verbally and Date of .PATIENT GENDER DATA: MalePATIENT RELEVANT IMPLANT DATA REVIEWED: Not ApplicableRADIOLOGY DEPARTMENT: General X-ray: Exam(s) Completed: Chest X-RayPERIPHERAL IV DATA: Not applicableSIGNED BY: Courtney Aguilar 2017 11:45 AM XR CHEST 2V FRONTAL/LAT Observed: 02/01/2018 Status: F Source: [place] 11:[address] [facility] REPOS[facility]ORY * * *Final Report* * *DATE OF EXAM: Feb 01 2018 11:44AM WOX [id number] - XR CHEST 2V FRONTAL/LAT / REASON: Encounter for other preprocedural examination * * * * Physician Interpretation * * * * EXAMINATION: CHEST RADIOGRAPH (2 VIEW FRONTAL and LATERAL)Clinical History: Encounter for other preprocedural examinationMQ: [id number]_5Comparison: 10/22/2011RESULT:Lines, tubes, and devices: None.Lungs and pleura:Persistent hyperinflation without focal infiltrate, pneumothorax, pulmonary congestion or pleural effusion. Small metallic density projected superior to left hilum is unchanged in location..Cardiomediastinal silhouette: Normal cardiomediastinal silhouette.Other: Minimal loss of height of T7 vertebrae which questionably has slightly progressed since prior study.IMPRESSION:COPD.No acute pulmonary process.Questionable minimal progressive loss of height of T7 vertebrae.Occupational Medicine Specialist: P[employer] Transcribe Date/Time: Feb 01 2018 2: 03PDictated by : SNOW DELEON MDThimaddie examination was interpreted and the report reviewed and electronically signed by: SNOW DELEON MD on Feb 01 2018 2:05PM [id number] CBC AND DIFFERENTIAL Collected: 02/01/2018 Status: F Source: [place] 11:[address] [facility] REPOS[facility] TYPE CODE TESTS RESULT OUT OF REFERENCE UNITS RANGE LAB WBC 3.70-11.00 k/uL WBC 7.04 LAB RBC 4.20-6.00 m/uL RBC 4.92 LAB HGB 13.0-17.0 g/dL Hemoglobin 14.8 LAB HCT 39.0-51.0 % Hematocrit 44.6 LAB MCV 80.0-100.0 fL MCV 90.7 LAB MCH 26.0-34.0 pG MCH 30.1 LAB MCHC 30.5-36.0 g/dL MCHC 33.2 LAB RDWCV 11.5-15.0 % RDW-CV 12.7 LAB PLTCT 150-400 k/uL Platelet 281 Count LAB MPV 9.0-12.7 fL MPV 11.5 LAB ANEUT % Neut% 43.8 LAB AANEUT 1.45-7.50 k/uL Abs Neut 3.06 LAB ALYMP % Lymph% 43.0 LAB AALYMP 1.00-4.00 k/uL Abs Lymph 3.03 LAB AMONO % [place]% 9.1 LAB AAMONO <0.87 k/uL Abs [place] 0.64 LAB AEOS % Eosin% 3.4 LAB AAEOS <0.46 k/uL Abs Eosin 0.24 LAB ABASO % Baso% 0.7 LAB AABASO <0.11 k/uL Abs Baso 0.05 LAB AUNRBC 0 /100 WBC NRBCs 0.0 LAB ABNRBC <0.01 k/uL Absolute nRBC <0.01 LAB DTYP DTYPE Auto Diff Performed By: #### CBCDIF, CMP, LIPB ####[facility] [address] [place], [place] [phone] COMP METABOLIC PANEL Collected: 02/01/2018 Status: F Source: [place] 11:[address] [facility] REPOS[facility]ORY TYPE CODE TESTS RESULT OUT OF REFERENCE UNITS RANGE LAB TP 6.3-8.0 g/dL Protein, Total 7.7 LAB ALB 3.9-4.9 g/dL Albumin 3.9 LAB CA 8.5-10.2 mg/dL Calcium, Total 9.7 LAB TBIL 0.2-1.3 mg/dL Bilirubin, 0.5 Total LAB ALKP 36-108 U/L Alkaline 89 Phosphatase LAB AST High 14-40 U/L AST 55 LAB GLU 74-99 mg/dL Glucose 86 Result Comment: The [place] Diabetes Association (ADA) provides guidance for cutoff values for fasting glucose and random glucose. The ADA defines fasting as no caloric intake for at least 8 hours. Fasting plasma glucose results between 100 to 125 mg/dL indicate increased risk for diabetes (prediabetes).Fasting plasma glucose results greater than or equal to 126 mg/dL meet the criteria for diagnosis of diabetes. In the absence of unequivocal hyperglycemia, results should be confirmed by repeat testing. In a patient with classic symptoms of hyperglycemia or hyperglycemic crisis, random plasma glucose results greater than or equal to 200 mg/dL meet the criteria for diagnosis of diabetes.Reference: Standards of Medical Care in Diabetes 2016 , [place] Diabetes Association. Diabetes Care. 2016.39(Suppl 1). LAB BUN Low 9-24 mg/dL BUN 7 LAB CRET 0.73-1.22 mg/dL Creatinine 0.80 LAB NA 136-144 mmol/L Sodium 137 LAB K 3.7-5.1 mmol/L Potassium 4.8 LAB CL 97-105 mmol/L Chloride 100 LAB CO2 22-30 mmol/L CO2 26 LAB AGAP 9-18 mmol/L Anion Gap 11 LAB ALT 10-54 U/L ALT 49 LAB GFRAA eGFR- Amer. >60 LAB GFRNAA . eGFR-All Other Races >60 Result Comment: eGFR (Estimated GFR) Units of measure: mL/min/1.73 meters squaredeGFR is derived from the reexpressed MDRD Study equation using the following parameters: serum creatinine, age, gender and race. The creatinine assay has been calibrated to be traceable to IDMS.An eGFR <60 mL/min/1.73m2 for >3 months is consistent with chronic kidney disease. Refer to KDOQI guidelines for clinical interpretation.In patients with unstable renal function, e.g. those with acute kidney injury, the eGFR may not accurately reflect actual GFR. Performed By: #### CBCDIF, CMP, LIPB ####[facility], [place] [phone] LIPID PANEL, BASIC Collected: 02/01/2018 Status: F Source: [place] 11:39 [facility] TYPE CODE TESTS RESULT OUT OF REFERENCE UNITS RANGE LAB CHOL <200 mg/dL Cholesterol 180 Result Comment: <200 mg/dL, Desirable 200-239 mg/dL, Borderline high>239 mg/dL, High LAB TRIGLY <150 mg/dL Triglyceride 57 Result Comment: <150 mg/dL, Normal 150-199 mg/dL, Borderline high 200-499 mg /dL, High>499 mg/dL, Very high LAB HDL >39 mg/dL HDL-Cholesterol 66 Result Comment: 40-59 mg/dL, Acceptable>59 mg/dL, High: Negative risk factor for coronary heart disease<40 mg/dL, Low: Positive risk factor for coronary heart disease LAB LDL High <100 mg/dL LDL-Cholesterol 103 Result Comment: <100 mg/dL, Optimal 100-129 mg/dL, Near optimal/above optimal 130-159 mg/dL, Borderline high 160-189 mg/dL, High>189 mg/dL, Very highSecondary prevention optimal LDL Cholesterol levels are recommended to be < 70 mg/dL LAB NONHDL <130 mg/dL Non HDL Cholesterol 114 Result Comment: <130 mg/dL, Optimal 130-159 mg/dL, Near optimal/above optimal 160-189 mg/dL, Borderline high 190-219 mg/dL, High>219 mg/dL, Very highSecondary prevention optimal non HDL Cholesterol levels are recommended to be < 100 mg /dL LAB FT hrs Fasting Time 16 LAB VLDL <30 mg/dL VLDL Cholesterol 11 LAB TCHDL <5.10 TC:HDL Ratio 2.73 LAB LDLHDL <2.54 LDL:HDL Ratio 1.56 Result Comment: Reference:1. National Cholesterol Education Program ATP III Guideline At-A-Glance Quick Desk Reference: National Heart, Lung, and Blood [place]. National Institutes of Health. 2001: NIH Publication No. 01-3305.2. An International Atherosclerosis Society position paper: global recommendations for the management of dyslipidemia: executive summary, Atherosclerosis. 2014: 232(2):410-413. Performed By: #### CBCDIF, CMP, LIPB ####[facility] [address], [place] [phone] MAGNESIUM Collected: 02/01/2018 Status: F Source: [place] 11:[address] [facility] REPOS[facility] TYPE CODE TESTS RESULT OUT OF REFERENCE UNITS RANGE LAB MG 1.7-2.3 mg/dL Magnesium 2.0 Performed By: #### MG1 ####[facility], [place] [phone] PROGRESS Observed: 02/01/2018 Status: COMPLETED Source: [place] 10:[address] [facility] REPOS[facility] HNO ID: [id number]: Minna (Electric Knife Operator) HaagenService: (none)Author Type: Nurse PractitionerType: Progress NotesFiled: 02/01/2018 3:48 PMNote Text:HISTORY AND PHYSICAL CSNINRADFCODOSTTPFZNJ83 year old male is here for consult to determine preoperative surgicalclearance requested by Dr. Jackson for anticipated surgery: correction ofright foot hallux valgus bunionette, tentatively scheduled for 02/12/2018at [facility].He plans to have the left foot corrected in the future.He reports this is under general anesthesia and is expected to be a sameday procedure.Surgical hx:Hx of appe -- more than 40 years ago.Patient's history of surgical problem: no.Hx of previous anesthesia problems: No.Family hx of anesthesia problems: No.Current signs of infection: No.Chest pain/ hx Cardiac complications: No.Shortness of breath: Yes - per his normal COPD.Hx sleep apnea: No.Hx of clotting issues: No.Current bleeding or bruising tendencies: No.Hx GERD No.On anticoagulant medication: No.In addition, pt was inpatient at [facility] in [place] from 01/01/18-01/03/1864hpgh4. COPD exacerbation2. Hopoxia3. Acute hyponatremia4. Hypomagnesemia5. Diarrhea6. Nausea/Vomiting.Since discharge, reports that he is out of his inhalers and needs refills.He also has a hx of SVT.Has followed with Dr. Humphreys in the past.He had a negative Stress test in 2010.He currently is not on medication -- EKG currently SB.He also has hx of dilated aorta, which was to be followed yearly withechos.HISTORIESFAMILY HISTORYProblem Relation Age of Onset - COPD Mother- Heart Mother [place] in 70s- Heart Father [place] in 70s- Stroke FatherPAST MEDICAL HISTORYDiagnosis Date- Aortic root dilation (HCC)- Arthritis left knee- COPD ( chronic obstructive pulmonary disease) ([facility])- DDD (degenerative disc disease), lumbar- Knee pain, left 09/18/2011- SVT (supraventricular tachycardia) ([facility])- Tobacco use disorderPAST SURGICAL HISTORYProcedure Laterality Date- APPENDECTOMYSocial History Marital status: Spouse name: Years of education: Number of children: 4Occupational HistoryOccupation Employer Commentunemployed, constr*Social History Main Topics Smoking status: Current Every Day Smoker Packs/day: 0.50 Years: 40.00 Types: Cigarettes Smokeless status: Never Used Comment: Usually >1PPD, 3 cig/d as of 08/2011 Alcohol use: Yes 9.0 oz/week 6 Cans of Beer (12oz) per week Comment: 6 cans of beer a day Drug use: Yes Comment: marijuana dailySocial History Narrative 2 sons, 2 daughtersACTIVE PROBLEM LISTSvt (Supraventricular Tachycardia) ([facility]) Tobacco Use DisorderCopd (Chronic Obstructive Pulmonary Disease) ([facility])Ddd ( Degenerative Disc Disease), LumbarKnee Pain, LeftBackache, UnspecifiedCurrent Outpatient Prescriptions:budesonide-formoterol (SYMBICORT) 160-4.5 mcg/actuation inhaler Inhale 2Puffs as instructed twice daily. Disp: 1 Inhaler Rfl: 2albuterol HFA (PROAIR HFA) 90 mcg/actuation inhaler Inhale 2 Puffs asinstructed every 6 hours as needed. Disp : 1 Inhaler Rfl: 2albuterol 2.5 mg /3 mL (0.083 %) INHALATION nebulizer solution Use 3 mLvia nebulizer one time only for 1 dose. Disp: 3 mL Rfl: 0No current facility-administered medications for this visit.REVIEW OF SYSTEMS:General: No weight loss, malaise or fevers.Neuro: no n/t, stroke, cva, tremors, headaches.Respiratory: COPD, Daily bronchodilator use for previous 3 months,Dyspnea, Recent hospitalizations for COPD, Tobacco Use, WheezingCardiovascular: Positive for: irregular heart beatGI: Negative for GERD, Heartburn, Nausea, Vomiting, Abdominal pain,Difficulty swallowing, GI bleed < 30 days, Liver disease Stopped drinkingETOH 2 months ago.: no frequency, urgency, hematuria, dysuria. Nocturia X 2.FLOW MANAGER: N/A : N/AEndocrine: No excessive thirst, excessive urination, heat intolerance,cold intolerance. Was on predinsone in the last month.Hematology: No history of bleeding or clotting disorder. Pt is not takinganti-coagulation or platelet medications. No history of hematologicalsymptoms or problems.Oncology: No history of CA metastasis, chemo within 30 days, orradiotherapy within 90 days. Has not lost 10% of body wt in 6 months. Nohistory of oncological symptoms or problems., only CA hx skin on face.Psych: No history of psychiatric symptoms or problems.Musculoskeletal: Problems with bilateral feet and bilateral knees.bilateral hammer feet.Skin: Negative for lesions, rash and itching.PHYSICAL EXAM:VITALS:BP 106/58 (BP Site: Left Arm, BP Position: Sitting, BP Cuff Size: RegularAdult) Pulse 72 Resp 12 Wt 64.9 kg (143 lb) BMI 19.67 kg/x5Jdofltu: Alert and oriented, No acute distressSkin: Normal color, no rash, no lesions.HEENT: EOM, pupils equal, round and reactive., No carotid bruits, noadenopathy, thyroid normal.Cardiovascular: Normal S1 AND S2, no rubs, murmurs or gallops. No JVD. Pulseregular.Lungs: L/S are slighlty decreased, but othewise clear.Abdomen: Soft, non-tender, no rigidity., No masses or organomegaly.,Positive bowel soundsExtremities: No deformity, no edema or tenderness, no joint swelling orclubbing.Neurological: Normal cognition and motor skills.Pulses: Carotid and radial pulses normal +2. Pedal pulses normal +2.Diagnostic tests reviewed for today's visit:PENDINGASSESSMENTPatient has the following medical conditions which may affectperi-operative courseCOPD - ModerateHx of SVT - currently untreated.Clinical Risk Factors for Possible Cardiac Complications:Hx of dilated aortic root.Hx of SVT.Patient is scheduled for a low-risk procedure.FUNCTIONAL STATUS: Do moderate work around the house such as vacuuming,sweeping floors, or carrying in groceries (3.50 METs)Functional Class (NYHA): I-IIGUPTA CARDIAC RISK CALCULATOR - 0.14%CONSULTS:The following consults have been initiated at this time:Cardiology Consult for cardiac clearance r/t hx of SVT and aortic rootdilation.Pulmonary Consult for COPD.The Following Tests/Procedures Have Been Initiated:EKG, Echo, Chest X-Ray, CBC, CMP, MagReferral to cardiology and pulmonology.Instructions Given to Patient:1. Labs and Chest Xray today.2. Schedule Echo.3. Will need cardiology clearance.4. Will need pulmonary clearance.ASSESSMENT/PLAN:1. Preop examination - ICD9: V72.84, ICD10: Z01.818 (primary diagnosis)Await work-up and cardiac/pulmonary clearance.- XR CHEST 2V FRONTAL/LAT- CBC + DIFF- COMP METABOLIC PANEL- ECG COMPLETE W INTERPRETATION - ECHO- CONSULT TO PULM/CRITICAL CARE- CONSULT TO CARDIOLOGY2. COPD without exacerbation (HCC) - ICD9: 496, ICD10: J44.9Inhalers refilled. Pulmonology referral.- BUDESONIDE-FORMOTEROL HFA 160 MCG-4.5 MCG/ACTUATION AEROSOL INHALER- ALBUTEROL SULFATE HFA 90 MCG/ACTUATION AEROSOL INHALER- XR CHEST 2V FRONTAL/LAT- CONSULT TO PULM/CRITICAL CARE3. Chronic obstructive pulmonary disease, unspecified COPD type (HCC) -ICD9: 496, ICD10: J44.9- CONSULT TO PULM/CRITICAL CARE4. SVT (supraventricular tachycardia) (HCC) - ICD9: 427.89, ICD10: I47.1- Currently untreated and asymptomatic.- CONSULT TO CARDIOLOGY5. Dilated aortic root (HCC ) - ICD9: 447.71, ICD10: I77.810Overdue for recheck.- ECHO- CONSULT TO CARDIOLOGY6. Family history of hypercholesterolemia - ICD9: V18.19, ICD10: Z83.42- LIPID PANEL BASIC7. Low magnesium level - ICD9: 790.6, ICD10: R79.0-Likely was from gastroenteritis and ETOH use.-Recheck.- MAGNESIUM BLD8. Hyponatremia - ICD9: 276.1, ICD10: E87.1Likely from gastroenteritis.Recheck today.- COMP METABOLIC PANELPLANThank you for allowing us to participate in the care of this patient.At this time, awaiting further work-up, cardiac, and pulmonary clearancebefore surgical clearance.Minna Moore APRN.CNP CNOV Observed: 02/01/2018 Status: COMPLETED Source: [place] 10:[address] [facility] REPOS[facility] Office Visit (FAMPWS) ---------DAMIAN TOM ([id number]) 1960 [facility] Department02/01/18 10:00 AM MINNA MOORE (SADIE) FAMPWS During your visit today, we recorded the following information about you: Pulse Respiration Blood pressure Weight 72/minute 12/minute 106/58 64.9 kgChristy DARRYN Moore 02/01/2018 3:48 PM SignedHISTORY AND PHYSICAL TAVLBAGYMQONBOUADFEMF32 year old male is here for consult to determine preoperative surgicalclearance requested by Dr. Jackson for anticipated surgery: correction of rightfoot hallux valgus bunionette, tentatively scheduled for at [facility].He plans to have the left foot corrected in the future.He reports this is under general anesthesia and is expected to be a same dayprocedure.Surgical hx:Hx of appe -- more than 40 years ago.Patient's history of surgical problem: no.Hx of previous anesthesia problems: No.Family hx of anesthesia problems: No.Current signs of infection: No.Chest pain/ hx Cardiac complications: No.Shortness of breath: Yes - per his normal COPD.Hx sleep apnea: No.Hx of clotting issues: No.Current bleeding or bruising tendencies: No.Hx GERD No.On anticoagulant medication: No.In addition, pt was inpatient at [facility] in [place] from 01/01/18-01/03/18 with1. COPD exacerbation2. Hopoxia3. Acute hyponatremia4. Hypomagnesemia5. Diarrhea6. Nausea/Vomiting.Since discharge, reports that he is out of his inhalers and needs refills.He also has a hx of SVT.Has followed with Dr. Humphreys in the past.He had a negative Stress test in 2010.He currently is not on medication -- EKG currently SB.He also has hx of dilated aorta, which was to be followed yearly with echos.HISTORIESFAMILY HISTORYProblem Relation Age of Onset- COPD Mother- Heart Mother [place] in 70s- Heart Father [place] in 70s- Stroke FatherPAST MEDICAL HISTORYDiagnosis Date- Aortic root dilation (HCC)- Arthritis left knee- COPD ( chronic obstructive pulmonary disease) ([facility])- DDD (degenerative disc disease), lumbar- Knee pain, left 09/18/2011- SVT (supraventricular tachycardia) ([facility])- Tobacco use disorderPAST SURGICAL HISTORYProcedure Laterality Date- APPENDECTOMYSocial History Marital status: Spouse name: Years of education: Number of children: 4Occupational HistoryOccupation Employer Commentunemployed, constr*Social History Main Topics Smoking status: Current Every Day Smoker Packs/day: 0.50 Years: 40.00 Types: Cigarettes Smokeless status: Never Used Comment: Usually ANDgt;1PPD, 3 cig/d as of 08/2011 Alcohol use: Yes 9.0 oz/ week 6 Cans of Beer (12oz) per week Comment: 6 cans of beer a day Drug use: Yes Comment: marijuana dailySocial History Narrative 2 sons, 2 daughtersACTIVE PROBLEM LISTSvt (Supraventricular Tachycardia) ([facility])Tobacco Use DisorderCopd (Chronic Obstructive Pulmonary Disease) ([facility])Ddd (Degenerative Disc Disease), LumbarKnee Pain, LeftBackache, UnspecifiedCurrent Outpatient Prescriptions:budesonide-formoterol (SYMBICORT) 160-4.5 mcg/actuation inhaler Inhale 2 Puffsas instructed twice daily. Disp: 1 Inhaler Rfl: 2albuterol HFA (PROAIR HFA) 90 mcg /actuation inhaler Inhale 2 Puffs asinstructed every 6 hours as needed. Disp: 1 Inhaler Rfl: 2albuterol 2.5 mg /3 mL (0.083 %) INHALATION nebulizer solution Use 3 mL vianebulizer one time only for 1 dose. Disp: 3 mL Rfl: 0No current facility-administered medications for this visit.REVIEW OF SYSTEMS:General: No weight loss, malaise or fevers.Neuro: no n/t, stroke, cva, tremors, headaches.Respiratory: COPD, Daily bronchodilator use for previous 3 months, Dyspnea,Recent hospitalizations for COPD, Tobacco Use, WheezingCardiovascular: Positive for: irregular heart beatGI: Negative for GERD , Heartburn, Nausea, Vomiting, Abdominal pain, Difficultyswallowing, GI bleed ANDlt; 30 days, Liver disease Stopped drinking ETOH 2 monthsago.: no frequency, urgency, hematuria, dysuria. Nocturia X 2.FLOW MANAGER: N/A : N/AEndocrine: No excessive thirst, excessive urination, heat intolerance, coldintolerance. Was on predinsone in the last month.Hematology: No history of bleeding or clotting disorder. Pt is not takinganti-coagulation or platelet medications. No history of hematological symptomsor problems.Oncology: No history of CA metastasis, chemo within 30 days, or radiotherapywithin 90 days. Has not lost 10% of body wt in 6 months. No history ofoncological symptoms or problems., only CA hx skin on face.Psych: No history of psychiatric symptoms or problems.Musculoskeletal: Problems with bilateral feet and bilateral knees. bilateralhammer feet.Skin: Negative for lesions, rash and itching.PHYSICAL EXAM:VITALS:BP 106/58 (BP Site: Left Arm, BP Position: Sitting , BP Cuff Size: RegularAdult) Pulse 72 Resp 12 Wt 64.9 kg (143 lb) BMI 19.67 kg/ s3Ysqmxzs: Alert and oriented, No acute distressSkin: Normal color, no rash, no lesions.HEENT: EOM, pupils equal, round and reactive., No carotid bruits, noadenopathy, thyroid normal.Cardiovascular: Normal S1 ANDamp; S2, no rubs, murmurs or gallops. No JVD. Pulseregular.Lungs: L/S are slighlty decreased, but othewise clear.Abdomen: Soft, non-tender, no rigidity., No masses or organomegaly., Positivebowel soundsExtremities: No deformity, no edema or tenderness, no joint swelling orclubbing.Neurological: Normal cognition and motor skills.Pulses: Carotid and radial pulses normal +2. Pedal pulses normal +2.Diagnostic tests reviewed for today's visit:PENDINGASSESSMENTPatient has the following medical conditions which may affect alvin-operativecourseCOPD - ModerateHx of SVT - currently untreated.Clinical Risk Factors for Possible Cardiac Complications:Hx of dilated aortic root.Hx of SVT.Patient is scheduled for a low-risk procedure.FUNCTIONAL STATUS: Do moderate work around the house such as vacuuming,sweeping floors, or carrying in groceries (3.50 METs) Functional Class (NYHA): I-IIGUPTA CARDIAC RISK CALCULATOR - 0.14%CONSULTS:The following consults have been initiated at this time:Cardiology Consult for cardiac clearance r/t hx of SVT and aortic rootdilation.Pulmonary Consult for COPD.The Following Tests/Procedures Have Been Initiated:EKG, Echo, Chest X- Ray, CBC, CMP, MagReferral to cardiology and pulmonology.Instructions Given to Patient:1. Labs and Chest Xray today.2. Schedule Echo.3. Will need cardiology clearance.4. Will need pulmonary clearance.ASSESSMENT/PLAN:1. Preop examination - ICD9: V72.84, ICD10: Z01.818 ( primary diagnosis)Await work-up and cardiac/pulmonary clearance.- XR CHEST 2V FRONTAL/LAT- CBC + DIFF - COMP METABOLIC PANEL- ECG COMPLETE W INTERPRETATION- ECHO- CONSULT TO PULM/CRITICAL CARE- CONSULT TO CARDIOLOGY2. COPD without exacerbation (HCC) - ICD9: 496, ICD10: J44.9Inhalers refilled. Pulmonology referral.- BUDESONIDE-FORMOTEROL HFA 160 MCG-4.5 MCG/ACTUATION AEROSOL INHALER- ALBUTEROL SULFATE HFA 90 MCG/ACTUATION AEROSOL INHALER- XR CHEST 2V FRONTAL/LAT- CONSULT TO PULM/ CRITICAL CARE3. Chronic obstructive pulmonary disease, unspecified COPD type (HCC) - ICD9:496, ICD10: J44.9- CONSULT TO PULM/CRITICAL CARE4. SVT (supraventricular tachycardia) (HCC) - ICD9: 427.89, ICD10: I47.1- Currently untreated and asymptomatic.- CONSULT TO CARDIOLOGY5. Dilated aortic root (HCC ) - ICD9: 447.71, ICD10: I77.810Overdue for recheck.- ECHO- CONSULT TO CARDIOLOGY6. Family history of hypercholesterolemia - ICD9: V18.19, ICD10: Z83.42- LIPID PANEL BASIC7. Low magnesium level - ICD9: 790.6, ICD10: R79.0-Likely was from gastroenteritis and ETOH use.-Recheck.- MAGNESIUM BLD8. Hyponatremia - ICD9: 276.1, ICD10: E87.1Likely from gastroenteritis.Recheck today.- COMP METABOLIC PANELPLANThank you for allowing us to participate in the care of this patient.At this time, awaiting further work-up, cardiac, and pulmonary clearance beforesurgical clearance.Minna Moore APRN.SADIEChpaco Moore APRN.CNP 02/01/2018 11:03 AM Signed1. Labs and chest xray today.2. Schedule echocardiogram.3. Cardiology referral for pre-op clearance.4. Pulmonary referral for pre-op clearance.5. Resp medication refills sent to the pharmacy.Minna Moore APRN.CNP 02/09/2018 11:49 AM AddendumPt had appts with pulmonology and cardiology for pre-op risk assessment.Both found to be low risk.Recommendations below.Pt is considered low-risk for low-risk procedure.Thank you for allowing us to participate in the dare of this patient.Pulmonology:Preoperative Risk Calculation:The features of this patient's history that contribute to the pulmonary riskassessment include: Age, COPD, General anesthesia, surgery ANDgt;2 hours, smokingThis patient has a low 1.3% risk of post-operative pulmonary complications.The absolute assessment of risk/benefit of the procedure is deferred to theprimary team's evaluation.Postoperative respiratory failure (PRF) is considered as failure to wean frommechanical ventilation within 48 hours of surgery or unplannedintubation/reintubation postoperatively.RECOMMENDATIONS:In order to minimize the risk of complications and optimize pulmonary status,we recommend the following:- PFT, Lung volumes and DLCO - ORDERED ON THIS VISIT (per pulm -- do not needto delay surgery for this)- Encourage aggressive incentive spirometry hourly both alvin-operatively andpost-operatively as tolerated- Early ambulation and physical therapy as tolerated post-operatively- Bronchodilators as needed for wheezing or shortness of breath - Oral steroids only if the patient appears to have component of COPD or asthmaobstructive lung disease exacerbation, otherwise no routine steroid utilizationneeded- Ideally we recommend smoking cessation for ANDgt;4 weeks before any intervention- DVT / PE prophylaxis, mechanical and ideally pharmacologic- Post operatively may benefit from Nocturnal Bipap or cpap if maite, or evenpostop NIPPV bilevel support if hypoventilation or narcotic utilization.CardiologyCLINICAL IMPRESSION/PLAN: Damian Tom has no clinical ischemic heart disease. His SVT is inactive.Exercise tolerance is limited somewhat by his lung problems and foot pain, butthere is no suggestion of significant ischemic heart disease.?Risk of perioperative cardiac complication is low for the procedureanticipated. No further studies are recommended.?He has been encouraged to stop smoking and let us know if he has recurrence ofhis palpitations.?Thank you for asking me to see and rex take recommendations on Damian Tom.This report is available to you in the shared medical record.?Written and verbal health teaching given to patient, patient verbalizesunderstanding and agrees with treatment plan.Referring Provider: SELF [[id number]]Allergies As of Date: 02/01/2018 Noted Allergy ReactionCODEINE 11/11/2010 16 - UnknownDate Reviewed: 02/01/2018Reviewed by: Lacey Hayes Sales Development Manager - Fully AssessedReason for Visit: pre opp [Other] Cmt: having surgery on hammer toePrimary Visit Diagnosis:Preop examination [Z01.818] Other Visit Diagnoses:COPD without exacerbation (HCC) [J44.9] Chronic obstructive pulmonary disease, unspecified COPD type (HCC) [J44.9] SVT (supraventricular tachycardia) ( HCC) [I47.1] Dilated aortic root (HCC) [I77.810] Family history of hypercholesterolemia [Z83.42] Low magnesium level [ R79.0] Hyponatremia [E87.1]Order(s):budesonide-formoterol (SYMBICORT) 160-4.5 mcg/ actuation inhalerInhale 2 Puffs as instructed twice daily.Disp: 1 InhalerRfl: 2 albuterol HFA (PROAIR HFA) 90 mcg/actuation inhalerInhale 2 Puffs as instructed every 6 hours as needed.Disp: 1 InhalerRfl: 2 XR CHEST 2V FRONTAL/LAT [4023722] Order #: [id number] FUTURE CBC + DIFF [SQCBCDIF] Order #: [id number] FUTURE COMP METABOLIC PANEL [SQCMP] Order #: [id number] FUTURE ECG COMPLETE W INTERPRETATION [ECG01] Order #: [id number] FUTURE ECHO [307642] Order #: [id number]: 1 FUTURE CONSULT TO PULM/CRITICAL CARE [661304] Order # : [id number]: 1 CONSULT TO CARDIOLOGY [9004] Order #: [id number]: 1 LIPID PANEL BASIC [SQLIPB] Order #: [id number] FUTURE MAGNESIUM BLD [SQMG1] Order #: [id number] FUTUREPrescriptions as of 02/01/2018 Sig: BUDESONIDE-FORMOTEROL HFA 160* Inhale 2 Puffs as instructed * ALBUTEROL SULFATE HFA 90 MCG/* Inhale 2 Puffs as instructed *Problem List As Of Date 12/2017 Noted Resolved SVT (supraventricular tachycardia) [I47.1] INVALID FOR* Tobacco use disorder [F17.200] COPD (chronic obstructive pulmonary disease) [J* DDD ( degenerative disc disease), lumbar [M51.36] Knee pain, left [M25.562] INVALID FOR* Backache, unspecified [M54.9] INVALID FOR* Dilated aortic root (HCC) [I77.810] INVALID FOR* Other instructions from your clinician: 1. Labs and chest xray today. 2. Schedule echocardiogram. 3. Cardiology referral for pre-op clearance. 4. Pulmonary referral for pre-op clearance. 5. Resp medication refills sent to the pharmacy.Prescriptions ordered this encounter Disp Refills Start End BUDESONIDE-FORMOTEROL HFA 160 MCG-4.* 1 In* 2 02/01/2018 Route: INHALATION Sig: Inhale 2 Puffs as instructed twice daily. ALBUTEROL SULFATE HFA 90 MCG/ACTUATI* 1 In* 2 02/01/2018 Route: INHALATION Sig: Inhale 2 Puffs as instructed every 6 hours as needed.Medications Discontinued During This Encounter predniSONE ( DELTASONE) 10 mg tablet 35 t* 0 06/17/2016 02/01/2018 Sig: Take 4 tabs daily x5 days, then 2 tabs daily for 5 days, then 1 tab daily for 5 days. Disc: Course of therapy completed verapamil (CALAN, ISOPTIN) 80 mg tab* 90 t* 1 05/27/2016 02/01/2018 Route: ORAL Sig: Take 1 tablet by mouth twice daily. Take one tab morning and evening. May take 3rd dose if sustained tachycardia-one tablet every 8 hrs Disc: Discontinued by Patient nitroglycerin sublingual ( NITROQUICK* 1 Travis* 1 05/27/2016 02/01/2018 Route: SUBLINGUAL Sig: Dissolve 1 tablet under the tongue every 5 minutes as needed (x 3 tabs, call 911 if pain persists). FOR CHEST PAIN. IF NO RELIEF CALL 911 Disc: Discontinued by Patient cyclobenzaprine (FLEXERIL) 10 mg tab* 30 t* 0 05/27/2016 02/01/2018 Route: ORAL Sig: Take 1 tablet by mouth three times daily as needed for Muscle Spasm. TAKE ONE TABLET EVERY EIGHT HOURS Disc: Course of therapy completed buPROPion XL (WELLBUTRIN XL) 150 mg * 60 t* 2 05/27/2016 02/01/2018 Route: ORAL Sig: Take 1 tablet by mouth once daily. Take [id number] mg tab daily for 3 days; then increase to 150 mg two times daily for 7 to 12 weeks Disc: Discontinued by Patient tiotropium (SPIRIVA WITH HANDIHALER) * 90 c* 1 10/25/2012 02/01/2018 Route: INHALATION Sig: Inhale 1 capsule as instructed once daily. With HandiHaler Disc: Course of therapy completed Lidocaine 4 % PtMd 02/01/2018 Class: Historical Med Route: TOPICAL Sig: Apply to affected area. Disc: Course of therapy completed budesonide-formoterol (SYMBICORT) 16* 1 In* 2 05/27/2016 02/01/2018 Route: INHALATION Sig: Inhale 2 Puffs as instructed twice daily. Disc: Reason for discontinue is not on file. albuterol HFA (PROAIR HFA) 90 mcg/ac* 1 In* 2 05/27/2016 02/01/2018 Route: INHALATION Sig: Inhale 2 Puffs as instructed every 6 hours as needed. Disc: Reason for discontinue is not on file.Disposition: Return if symptoms worsen or fail to improve.Follow-up and Disposition History RecordedEncounter Number: [id number] Status:Closed by MINNA MOORE CNP on 4/2/18 MG Collected: 01/03/2018 Status: F Source: [facility] 5:34 AM [facility] REPOSITORY TYPE CODE TESTS RESULT OUT OF REFERENCE UNITS RANGE LAB MG(LOINC) 1.7-2.5 mg/dL Magnesium 1.8 Lvl Performed By: #### MG, GFR, BMP ####Norma [address] [place], [place] [address]#### MYCO ####Norma [address] [place] [address] .GFR Collected: 01/03/2018 Status: F Source: [facility] 5:34 AM [facility] REPOSITORY TYPE CODE TESTS RESULT OUT OF REFERENCE UNITS RANGE LAB GFRAA(LOINC ml/min/1.73 ) GFR 113 sqm Result Comment: GFR Population mean for , Non- Americans Ages 20-29 = 116 mL/min/1.73 sq.m. Ages 30-39 = 107 mL/min/1.73 sq.m. Ages 40-49 = 99 mL/min/1.73 sq.m. Ages 50-59 = 93 mL/min/1.73 sq.m. Ages 60- 69 = 85 mL/min/1.73 sq.m. Ages 70+ = 75 mL/min/1.73 sq.m.Chronic Kidney Disease: Less than 60 mL/min/1.73 square metersEnd Stage Renal Disease: Less than 15 mL/min/ 1.73 square meters LAB GFRNO(LOINC) ml/min/1.73sqm GFR Non- >60 Result Comment: GFR Population mean for , Non- Americans Ages 20-29 = 116 mL/min/1.73 sq.m. Ages 30-39 = 107 mL/min/1.73 sq.m. Ages 40-49 = 99 mL/min/1.73 sq.m. Ages 50-59 = 93 mL/min/1.73 sq.m. Ages 60- 69 = 85 mL/min/1.73 sq.m. Ages 70+ = 75 mL/min/1.73 sq.m.Chronic Kidney Disease: Less than 60 mL/min/1.73 square metersEnd Stage Renal Disease: Less than 15 mL/min/ 1.73 square meters Performed By: #### MG, GFR, BMP ####Norma [address] [place], [place] [address]#### MYCO ####[place] [address] BMP Collected: 01/03/2018 Status: F Source: [facility] 5:34 AM [facility] REPOSITORY TYPE CODE TESTS RESULT OUT OF REFERENCE UNITS RANGE LAB 1547-9 High 70-105 mg/dL GLUCOSE 106 LAB NA(LOINC) Low 136-146 mEq/L Sodium Level 134 LAB K(LOINC) 3.5-5.1 mEq/L Potassium Level 3.5 LAB CL(LOINC) 98-107 mEq/L Chloride 100 LAB CO2(LOINC) 22-29 mEq/L CO2 28 LAB EBAL(LOINC mEq/L ) Electrolyte 6.0 Balance LAB BUN(LOINC) 7.0-18.0 mg/dL BUN 11.6 LAB CRE(LOINC) 0.6-1.2 mg/dL Creatinine Lvl 0.8 (s) LAB BC(LOINC) 7-27 ratio BUN/Creatinine 14 Ratio LAB CA(LOINC) 8.4-10.2 mg/dL Calcium Lvl 8.9 Performed By: #### MG, GFR, BMP ####Norma [address] [place], [place] [address]#### MYCO ####[place] [address] MYCO Collected: 01/03/2018 Status: F Source: [facility] 5:34 [facility] REPOSITORY TYPE CODE TESTS RESULT OUT OF REFERENCE UNITS RANGE LAB CD:[id number](LOINC) Mycoplasma Negative IgM Result Comment: INTERPRETATION OF MYCOPLASMA BY EIA (Effective 11/07/04): Negative No detectable antibodies to M. pneumoniae. Indicates absence of current or previous infection. Positive Reactive for antibodies to M. pneumoniae. Indicates a past or recent infection. Equivocal Equivocal for antibodies to M. pneumoniae. Repeat testing by an alternate method suggested. LAB CD:[id number](LOINC) Mycoplasma IgG Neg Result Comment: INTERPRETATION OF MYCOPLASMA BY EIA (Effective 11/07/04): Negative No detectable antibodies to M. pneumoniae. Indicates absence of current or previous infection. Positive Reactive for antibodies to M. pneumoniae. Indicates a past or recent infection. Equivocal Equivocal for antibodies to M. pneumoniae. Repeat testing by an alternate method suggested. Performed By: #### MG, GFR, BMP ####Norma [address] [place], [place] [address]#### MYCO ####[place] [address] Observed: 01/02/2018 Status: F Source: [facility] 1:25 PM [facility] REPOSITORY . MICRO - MicrobiologyPROCEDURE: Legionella Urine Ag [*1] Urine BODY SITE:COLLECTED DATE/TIME: 01/02/2018 13:25 EST RECEIVED DATE/TIME: 01/03/2018 18:34 ESTSTART DATE/TIME: 01/03/2018 18:34 EST FREE TEXT SOURCE:FINAL REPORTSFinal Report []Verified Date/Time/Personnel: 2017 19:07 ESTPresumptive negative for L. pneumophila serogroup 1antigen in urine, suggesting no recent or currentinfection. Legionnaire's disease cannot be ruled outsince other serogroups and species may also causedisease.Performing Locations*1: This test was performed at: [facility], [address] [place] [address], [address] [place] [address] Performed By: #### FAM ####[place] [address] Observed: 01/02/2018 Status: F Source: [facility] 1:25 PM [facility] REPOSITORY . MICRO - MicrobiologyPROCEDURE: Streptococcus Pneumoniae Urine Antig [1 *1]SOURCE: Urine BODY SITE:COLLECTED DATE/TIME: 01/02/2018 13:25 EST RECEIVED DATE/TIME: 01/03/2018 18:34 ESTSTART DATE/TIME: 2017 18:34 EST FREE TEXT SOURCE:FINAL REPORTSFinal Report []Verified Date/Time/Personnel: 01/03/2018 19:07 ESTPresumptive negative for pneumococcal pneumonia,suggesting no current or recent pneumococcal infection.Infection due to Strep pneumoniae cannot be ruled outsince the antigen present in the sample may be below thedetection limit of the test.Interpretive Data1: Streptococcus Pneumoniae Urine Antig This test has not been evaluated on patients taking antibiotics for greater than 24 hours or on patients who have recently completed an antibiotic regimen. The accuracy of this test has not been proven in young children.Performing Locations*1: This test was performed at: [facility], [address] [place] [address], [address] , [facility] Performed By: #### JOSEG ####[place] [address] [place] [address] CBC Collected: 01/02/2018 Status: F Source: [facility] 5:16 AM [facility] REPOSITORY TYPE CODE TESTS RESULT OUT OF REFERENCE UNITS RANGE LAB WBC(LOINC) High 4.60-10.80 10 3/mcL WBC 12.40 LAB RBCCT(LOINC 4.04-6.13 10 6/mcL ) RBC 5.07 LAB HGB(LOINC) 14.0-18.0 G/dL Hgb 15.3 LAB HCT(LOINC) 42.0-52.0 % Hct 44.0 LAB MCV(LOINC) 80.0-94.0 fL MCV 86.7 LAB MCH(LOINC) 27.0-31.2 pg MCH 30.2 LAB MCHC(LOINC) 31.8-35.4 G/dL MCHC 34.9 LAB RDW(LOINC) 11.5-14.5 % RDW 13.3 LAB PLT(LOINC) 130-400 10 3/mcL Platelet 256 LAB MPV(LOINC) 7.4-10.4 fL MPV 8.8 Performed By: #### CBC, ADIFF, ANEU, MG, GFR, CMP ####Norma [address] [place], [place] [address] .AUTO DIFF Collected: 01/02/2018 Status: F Source: [facility] 5:16 AM [facility] REPOSITORY TYPE CODE TESTS RESULT OUT OF REFERENCE UNITS RANGE LAB JERMAN(LOINC) 37.0-80.0 % Neutrophil % 80.0 LAB LYM(LOINC) 10.0-50.0 % Lymphocyte % 12.4 LAB MON(LOINC) 1.7-13.0 % Monocyte % 7.1 LAB EO(LOINC) 0.0-7.0 % Eosinophil % 0.0 LAB BAS(LOINC) 0.0-2.5 % Basophil % 0.5 LAB ABLYM(LOIN 0.77-3.85 10 3/mcL C) Lymphocyte, 1.50 Absolute LAB HENRI(LOINC 0.15-1.00 10 3/mcL ) Monocyte, 0.90 Absolute LAB AEOS(LOINC 0.00-0.40 10 3/mcL ) Eosinophil, 0.00 Absolute LAB ABAS(LOINC 0.00-0.19 10 3/mcL ) Basophil, 0.10 Absolute Performed By: #### CBC, ADIFF, ANEU, MG, GFR, CMP ####Norma [address] [place], [place] [address] .NEUABS Collected: 01/02/2018 Status: F Source: [facility] 5:16 AM [facility] REPOSITORY TYPE CODE TESTS RESULT OUT OF REFERENCE UNITS RANGE LAB ANEU(LOINC) High 2.85-6.16 10 3/mcL 9.90 Neutrophil, Absolute Performed By: #### CBC, ADIFF, ANEU, MG, GFR, CMP ####Norma [address] [place], [place] [address] MG Collected: 01/02/2018 Status: F Source: [facility] 5:16 AM [facility] REPOSITORY TYPE CODE TESTS RESULT OUT OF REFERENCE UNITS RANGE LAB MG(LOINC) Low 1.7-2.5 mg/dL Magnesium 1.6 Lvl Performed By: #### CBC, ADIFF, ANEU, MG, GFR, CMP ####Norma [address] [place], [place] [address] .GFR Collected: 01/02/2018 Status: F Source: [facility] 5:16 AM [facility] REPOSITORY TYPE CODE TESTS RESULT OUT OF REFERENCE UNITS RANGE LAB GFRAA(LOINC ml/min/1.73 ) GFR 91 sqm Result Comment: GFR Population mean for , Non- Americans Ages 20-29 = 116 mL/min/1.73 sq.m. Ages 30-39 = 107 mL/min/1.73 sq.m. Ages 40-49 = 99 mL/min/1.73 sq.m. Ages 50-59 = 93 mL/min/1.73 sq.m. Ages 60- 69 = 85 mL/min/1.73 sq.m. Ages 70+ = 75 mL/min/1.73 sq.m.Chronic Kidney Disease: Less than 60 mL/min/1.73 square metersEnd Stage Renal Disease: Less than 15 mL/min/ 1.73 square meters LAB GFRNO(LOINC) ml/min/1.73sqm GFR Non- >60 Result Comment: GFR Population mean for , Non- Americans Ages 20-29 = 116 mL/min/1.73 sq.m. Ages 30-39 = 107 mL/min/1.73 sq.m. Ages 40-49 = 99 mL/min/1.73 sq.m. Ages 50-59 = 93 mL/min/1.73 sq.m. Ages 60- 69 = 85 mL/min/1.73 sq.m. Ages 70+ = 75 mL/min/1.73 sq.m.Chronic Kidney Disease: Less than 60 mL/min/1.73 square metersEnd Stage Renal Disease: Less than 15 mL/min/ 1.73 square meters Performed By: #### CBC, ADIFF, ANEU, MG, GFR, CMP ####Norma [address] [place], [place] [address] CMP Collected: 01/02/2018 Status: F Source: [facility] 5:16 AM [facility] REPOSITORY TYPE CODE TESTS RESULT OUT OF REFERENCE UNITS RANGE LAB 1547-9 High 70-105 mg/dL GLUCOSE 134 LAB NA(LOINC) Low 136-146 mEq/L Sodium Level 132 LAB K(LOINC) 3.5-5.1 mEq/L Potassium Level 4.5 LAB CL(LOINC) Low 98-107 mEq/L Chloride 96 LAB CO2(LOINC) 22-29 mEq/L CO2 29 LAB EBAL(LOINC mEq/L ) Electrolyte 7.0 Balance LAB BUN(LOINC) 7.0-18.0 mg/dL BUN 10.6 LAB CRE(LOINC) 0.6-1.2 mg/dL Creatinine Lvl 1.0 (s) LAB BC(LOINC) 7-27 ratio BUN/Creatinine 11 Ratio LAB CA(LOINC) 8.4-10.2 mg/dL Calcium Lvl 9.5 LAB PROT(LOINC 6.0-8.3 G/dL ) Total Protein 6.7 LAB ALB(LOINC) 3.5-5.0 G/dL Albumin Level 3.7 LAB GLB(LOINC) G/dL Globulin 3.0 LAB AG(LOINC) 1.1-2.5 ratio A/G Ratio 1.2 LAB BILT(LOINC 0.2-1.0 mg/dL ) Bili Total 0.6 LAB AP(LOINC) 40-135 IU/L Alk Phos 78 LAB AST(LOINC) 10-40 IU/L AST/SGOT 22 LAB ALT(LOINC) 10-35 IU/L ALT/SGPT 29 Performed By: #### CBC, ADIFF, ANEU, MG, GFR, CMP ####Norma [address] [place], [place] [address] BMP Collected: 01/01/2018 Status: F Source: [facility] [facility] 11:01 [facility] REPOSITORY TYPE CODE TESTS RESULT OUT OF REFERENCE UNITS RANGE LAB 1547-9 High 70-105 mg/dL GLUCOSE 179 LAB NA(LOINC) Low 136-146 mEq/L Sodium Level 130 LAB K(LOINC) 3.5-5.1 mEq/L Potassium Level 4.3 LAB CL(LOINC) Low 98-107 mEq/L Chloride 94 LAB CO2(LOINC) 22-29 mEq/L CO2 26 LAB EBAL(LOINC mEq/L ) Electrolyte 10.0 Balance LAB BUN(LOINC) 7.0-18.0 mg/dL BUN 11.6 LAB CRE(LOINC) 0.6-1.2 mg/dL Creatinine Lvl 1.2 (s) LAB BC(LOINC) 7-27 ratio BUN/Creatinine 10 Ratio LAB CA(LOINC) 8.4-10.2 mg/dL Calcium Lvl 9.2 Performed By: #### BMP, GFR ####Norma [address] [place], [place] [address] .GFR Collected: 01/01/2018 Status: F Source: [facility] [employer] [facility] 11:01 [facility] REPOSITORY TYPE CODE TESTS RESULT OUT OF REFERENCE UNITS RANGE LAB GFRAA(LOINC ml/min/1.73 ) GFR 79 sqm Result Comment: GFR Population mean for , Non- Americans Ages 20-29 = 116 mL/min/1.73 sq.m. Ages 30-39 = 107 mL/min/1.73 sq.m. Ages 40-49 = 99 mL/min/1.73 sq.m. Ages 50-59 = 93 mL/min/1.73 sq.m. Ages 60- 69 = 85 mL/min/1.73 sq.m. Ages 70+ = 75 mL/min/1.73 sq.m.Chronic Kidney Disease: Less than 60 mL/min/1.73 square metersEnd Stage Renal Disease: Less than 15 mL/min/ 1.73 square meters LAB GFRNO(LOINC) ml/min/1.73sqm GFR Non- >60 Result Comment: GFR Population mean for , Non- Americans Ages 20-29 = 116 mL/min/1.73 sq.m. Ages 30-39 = 107 mL/min/1.73 sq.m. Ages 40-49 = 99 mL/min/1.73 sq.m. Ages 50-59 = 93 mL/min/1.73 sq.m. Ages 60- 69 = 85 mL/min/1.73 sq.m. Ages 70+ = 75 mL/min/1.73 sq.m.Chronic Kidney Disease: Less than 60 mL/min/1.73 square metersEnd Stage Renal Disease: Less than 15 mL/min/ 1.73 square meters Performed By: #### BMP, GFR ####Norma [address] [place], [place] [address] CT ABD/PELVIS W/ IV Observed: 01/01/2018 Status: F Source: [facility] CONTRAST ONLY 3:04 PM [facility] REPOSITORY ORIGINALCT Abdomen and Pelvis with IV contrast enhancement Clinical Statement: Abdominal pain, nausea, vomiting Comparison: 02/13/2017 This exam was performed according to our departmental dose-optimization program which includes automated exposure control, adjustment of the mA and/or kVp according to patient size and/or use of iterative reconstruction technique where applicable. Findings: The hepatobiliary structures, pancreas, and spleen are unremarkable. The GE junction appears somewhat thickened. No bowel dilatation, ascites, or pneumoperitoneum is seen. LEFT colonic diverticulosis is seen. No evidence of appendicitis. No abdominal or pelvic adenopathy is noted. No aortic aneurysm. The kidneys show no hydronephrosis. Slight hazy opacities within the urinary bladder is felt to be due to mixing of the excreted contrast with urine. No filling defect is seen. IMPRESSION: No acute process. Questionable slight thickening of the GE junction may be due to a nondistended small hiatal hernia or inflammation. Depending on clinical grounds , a nonemergent esophagram may be considered. Interpreted By: Da Lutz DOPreliminary Report By: Da Lutz DOElectronically Signed By: Da Lutz DO Dictated Date: 01/01/2018 3:20:06 PM Prelim Date: 01/01/2018 3:20:06 PM Sign Date: 01/01/2018 3:28: 54 PM XR CHEST 2 VIEWS Observed: 01/01/2018 Status: F Source: [facility] 2:32 PM [facility] REPOSITORY ORIGINALXR CHEST 2 VIEWS CLINICAL STATEMENT: SOB/Cough/ Fever COMPARISON: 02/13/2017, 02/18/2014 FINDINGS: Left suprahilar calcification is stable from 2013.Emphysematous changes redemonstrated.Cardiomediastinal silhouette is stable.No pleural effusion, pneumothorax, or consolidation. IMPRESSION: 1. No acute radiographic finding.2. Emphysema. Interpreted By: Obdulia Valencia MDPreliminary Report By: Obdulia Valencia MDElectronically Signed By: Obdulia Valencia MD Dictated Date: 01/01 2:47:18 PM Prelim Date: 01/01/2018 2:47:18 PM Sign Date: 01/01/2018 2:48:41 PM Observed: 01/01/2018 Status: F Source: [facility] RFLU 1:51 PM [facility] REPOSITORY . MICRO - MicrobiologyPROCEDURE: Rapid Influenza A+B Screen w Cult if Ind [*1]SOURCE: Nasopharyngeal BODY SITE:COLLECTED DATE/TIME: 01/01/2018 13:51 EST RECEIVED DATE/TIME: 01/01/2018 13: 53 ESTSTART DATE/TIME: 01/01/2018 13:54 EST FREE TEXT SOURCE:FINAL REPORTSFinal Report []Verified Date/Time/Personnel: 01/01/2018 14:20 ESTSpecimen is negative for the presence of influenza Aantigen..Specimen is negative for the presence of influenza Bantigen..Inadequate specimen collection, improper samplehandling and/or low levels of viral shedding may yielda false-negative result..The optimal specimen type for the Rapid Flu test is anasopharyngeal wash/aspirate or nasopharyngeal swab.All negative rapid tests for Flu A and Flu B will beconfirmed with a Respiratory Id Panel by PCR..Assay method employs immunofluorescence technology.Performing Locations*1: This test was performed at: [address], [id number] [place] [address] Performed By: #### RFLU ####[address] [address] CBC Collected: 01/01/2018 Status: F Source: [facility] 1:51 [facility] REPOSITORY TYPE CODE TESTS RESULT OUT OF REFERENCE UNITS RANGE LAB WBC(LOINC) 4.60-10.80 10 3/mcL WBC 10.20 LAB RBCCT(LOINC 4.04-6.13 10 6/mcL ) RBC 5.33 LAB HGB(LOINC) 14.0-18.0 G/dL Hgb 16.2 LAB HCT(LOINC) 42.0-52.0 % Hct 46.4 LAB MCV(LOINC) 80.0-94.0 fL MCV 87.1 LAB MCH(LOINC) 27.0-31.2 pg MCH 30.4 LAB MCHC(LOINC) 31.8-35.4 G/dL MCHC 34.9 LAB RDW(LOINC) 11.5-14.5 % RDW 13.3 LAB PLT(LOINC) 130-400 10 3/mcL Platelet 276 LAB MPV(LOINC) 7.4-10.4 fL MPV 8.6 Performed By: #### CBC, ADIFF, ANEU, LIP, CMP, GFR ####[place] [address] .AUTO DIFF Collected: 01/01/2018 Status: F Source: [facility] 1:51 PM [facility] REPOSITORY TYPE CODE TESTS RESULT OUT OF REFERENCE UNITS RANGE LAB JERMAN(LOINC) 37.0-80.0 % Neutrophil % 63.3 LAB LYM(LOINC) 10.0-50.0 % Lymphocyte % 28.0 LAB MON(LOINC) 1.7-13.0 % Monocyte % 6.6 LAB EO(LOINC) 0.0-7.0 % Eosinophil % 1.0 LAB BAS(LOINC) 0.0-2.5 % Basophil % 1.1 LAB ABLYM(LOIN 0.77-3.85 10 3/mcL C) Lymphocyte, 2.90 Absolute LAB HENRI(LOINC 0.15-1.00 10 3/mcL ) Monocyte, 0.70 Absolute LAB AEOS(LOINC 0.00-0.40 10 3/mcL ) Eosinophil, 0.10 Absolute LAB ABAS(LOINC 0.00-0.19 10 3/mcL ) Basophil, 0.10 Absolute Performed By: #### CBC, ADIFF, ANEU, LIP, CMP, GFR ####Norma [address] [place], [place] [address] .NEUABS Collected: 01/01/2018 Status: F Source: [facility] 1:51 PM [facility] REPOSITORY TYPE CODE TESTS RESULT OUT OF REFERENCE UNITS RANGE LAB ANEU(LOINC) High 2.85-6.16 10 3/mcL 6.50 Neutrophil, Absolute Performed By: #### CBC, ADIFF, ANEU, LIP, CMP, GFR ####[address]a [address] [place], [place] [address] LIP Collected: 01/01/2018 Status: F Source: [facility] 1:51 PM [facility] REPOSITORY TYPE CODE TESTS RESULT OUT OF REFERENCE UNITS RANGE LAB LIP(LOINC) 8-78 IU/L Lipase 33 Level Performed By: #### CBC, ADIFF, ANEU, LIP, CMP, GFR ####[address] [place], [place] [address] CMP Collected: 01/01/2018 Status: F Source: [facility] 1:51 PM [facility] REPOSITORY TYPE CODE TESTS RESULT OUT OF REFERENCE UNITS RANGE LAB 1547-9 High 70-105 mg/dL GLUCOSE 115 LAB NA(LOINC) Low 136-146 mEq/L Sodium Level 125 LAB K(LOINC) 3.5-5.1 mEq/L Potassium Level 3.9 LAB CL(LOINC) Low 98-107 mEq/L Chloride 89 LAB CO2(LOINC) 22-29 mEq/L CO2 27 LAB EBAL(LOINC mEq/L ) Electrolyte 9.0 Balance LAB BUN(LOINC) 7.0-18.0 mg/dL BUN 14.0 LAB CRE(LOINC) High 0.6-1.2 mg/dL Creatinine Lvl 1.8 (s) LAB BC(LOINC) 7-27 ratio BUN/Creatinine 8 Ratio LAB CA(LOINC) 8.4-10.2 mg/dL Calcium Lvl 9.5 LAB PROT(LOINC 6.0-8.3 G/dL ) Total Protein 7.4 LAB ALB(LOINC) 3.5-5.0 G/dL Albumin Level 4.1 LAB GLB(LOINC) G/dL Globulin 3.3 LAB AG(LOINC) 1.1-2.5 ratio A/G Ratio 1.2 LAB BILT(LOINC 0.2-1.0 mg/dL ) Bili Total 1.0 LAB AP(LOINC) 40-135 IU/L Alk Phos 88 LAB AST(LOINC) 10-40 IU/L AST/SGOT 33 LAB ALT(LOINC) High 10-35 IU/L ALT/SGPT 38 Performed By: #### CBC, ADIFF, ANEU, LIP, CMP, GFR ####Norma [address] [place], [place] [address] .GFR Collected: 01/01/2018 Status: F Source: [facility] 1:51 PM [facility] REPOSITORY TYPE CODE TESTS RESULT OUT OF REFERENCE UNITS RANGE LAB GFRAA(LOINC ml/min/1.73 ) GFR 48 sqm Result Comment: GFR Population mean for , Non- Americans Ages 20-29 = 116 mL/min/1.73 sq.m. Ages 30-39 = 107 mL/min/1.73 sq.m. Ages 40-49 = 99 mL/min/1.73 sq.m. Ages 50-59 = 93 mL/min/1.73 sq.m. Ages 60- 69 = 85 mL/min/1.73 sq.m. Ages 70+ = 75 mL/min/1.73 sq.m.Chronic Kidney Disease: Less than 60 mL/min/1.73 square metersEnd Stage Renal Disease: Less than 15 mL/min/ 1.73 square meters LAB GFRNO(LOINC) ml/min/1.73sqm GFR Non- 39 Result Comment: GFR Population mean for , Non- Americans Ages 20-29 = 116 mL/min/1.73 sq.m. Ages 30-39 = 107 mL/min/1.73 sq.m. Ages 40-49 = 99 mL/min/1.73 sq.m. Ages 50-59 = 93 mL/min/1.73 sq.m. Ages 60- 69 = 85 mL/min/1.73 sq.m. Ages 70+ = 75 mL/min/1.73 sq.m.Chronic Kidney Disease: Less than 60 mL/min/1.73 square metersEnd Stage Renal Disease: Less than 15 mL/min/ 1.73 square meters Performed By: #### CBC, ADIFF, ANEU, LIP, CMP, GFR ####[facility] [place], [place] [address] RESPID Collected: 01/01/2018 Status: F Source: [facility] 1:46 PM FOUNDATION REPOSITORY Order Comment: Order added by [id number] TYPE CODE TESTS RESULT OUT OF REFERENCE UNITS RANGE LAB RESADENO( Not Detected LOINC) Adenovirus Not Detected LAB COVHKU1(L Not Detected OINC) Coronavirus HKU1 Not Detected LAB COVNL63(L Not Detected OINC) Coronavirus NL63 Not Detected LAB [id number](L Not Detected OINC) Coronavirus 229E Not Detected LAB COVOC43(L Not Detected OINC) Coronavirus OC43 Not Detected LAB HMV(LOINC Not Detected ) Human Not Metapneumovirus Detected LAB INFA(LOIN Not Detected C) Influenza A Not Detected LAB INFAB(WENDY Not Detected NC) Influenza B Not Detected LAB PARAFLU1( Not Detected LOINC) Parainfluenza 1 Not Detected LAB PARAFLU2( Not Detected LOINC) Parainfluenza 2 Not Detected LAB PARAFLU3( Not Detected LOINC) Parainfluenza 3 Not Detected LAB PARAFLU4( Not Detected LOINC) Parainfluenza 4 Not Detected LAB RHINO(WENDY Not Detected NC) Rhinovirus/Enterovir Not us Detected LAB RESRSV(LO Not Detected INC) Respiratory Not Syncytial Virus Detected LAB RESMYCO(L Not Detected OINC) Mycoplasma Not pneumoniae Detected LAB RESCHLAM( Not Detected LOINC) Chlamydophila Not pneumoniae Detected LAB RESBORD(L Not Detected OINC) Bordetella Pertussis Not Detected LAB RESBPAR(L Not Detected OINC) Bordetella Not Parapertussis Detected Performed By: #### RESPID ####[place] [address] [place] [address] CBC (AO) Collected: 02/14/2017 Status: F Source: [facility] 5:15 AM [facility] REPOSITORY Order Comment: AM Draw TYPE CODE TESTS RESULT OUT OF REFERENCE UNITS RANGE LAB WBC(LOINC) 4.60-10.80 10 3/mcL WBC 8.60 LAB RBCCT(LOIN 4.04-6.13 10 6/mcL C) RBC 4.44 LAB HGB(LOINC) Low 14.0-18.0 G/dL Hemoglobin 13.7 LAB HCT(LOINC) Low 42.0-52.0 % Hematocrit 39.8 LAB MCV(LOINC) 80.0-94.0 fL MCV 89.6 LAB MCH(LOINC) 27.0-31.2 pg MCH 30.9 LAB MCHC(LOINC 31.8-35.4 G/dL ) MCHC 34.5 LAB RDW(LOINC) 11.5-14.5 % RDW 14.0 LAB PLT(LOINC) 130-400 10 3/mcL Platelet 181 Count LAB MPV(LOINC) 7.4-10.4 fL Mean Platelet 9.2 Volume LAB LYM(LOINC) 10.0-50.0 % Lymphocyte % 14.0 LAB MON(LOINC) High 1.7-13.0 % Monocyte % 20.9 LAB JERMAN(LOINC) 37.0-80.0 % Neutrophil % 63.3 LAB EO(LOINC) 0.0-7.0 % Eosinophil % 1.3 LAB BAS(LOINC) 0.0-2.5 % Basophil % 0.5 LAB ABLYM(LOIN 0.77-3.85 10 3/mcL C) Lymphocyte, 1.20 Absolute LAB HENRI(LOINC High 0.15-1.00 10 3/mcL ) Monocyte, 1.80 Absolute LAB ANEU(LOINC 2.85-6.16 10 3/mcL ) Neutrophil, 5.40 Absolute LAB AEOS(LOINC 0.00-0.40 10 3/mcL ) Eosinophil, 0.10 Absolute LAB ABAS(LOINC 0.00-0.19 10 3/mcL ) Basophil, 0.00 Absolute Performed By: #### CBCO ####Norma [address] [address] BASIC METABOLIC PANEL Collected: 02/14/2017 Status: F Source: [facility] 5:15 AM [facility] REPOSITORY Order Comment: AM Draw TYPE CODE TESTS RESULT OUT OF REFERENCE UNITS RANGE LAB GLU(LOINC) High 70-105 mg/dL Glucose 132 LAB NA(LOINC) Low 136-146 mEq/L Sodium 131 LAB K(LOINC) 3.5-5.1 mEq/L Potassium 4.0 LAB CL(LOINC) 98-107 mEq/L Chloride 99 LAB CO2(LOINC) 22-29 mEq/L CO2 26 LAB EBAL(LOINC mEq/L ) Electrolyte 6.0 Balance LAB BUN(LOINC) High 7-18 mg/dL BUN 24 LAB CRE(LOINC) 0.6-1.2 mg/dL Creatinine (s) 1.1 LAB BC(LOINC) 7-27 BUN/Creatinine 22 Ratio LAB CA(LOINC) 8.4-10.2 mg/dL Calcium 9.4 Performed By: #### BMP ####[address] [address] MAGNESIUM Collected: 02/14/2017 Status: F Source: [facility] [employer] 5:15 AM [facility] REPOSITORY Order Comment: AM Draw TYPE CODE TESTS RESULT OUT OF REFERENCE UNITS RANGE LAB MG(LOINC) 1.7-2.5 mg/dL Magnesium 1.7 Performed By: #### MG ####[address] [address] GLOMERULAR FILTRATION Collected: 02/14/2017 Status: F Source: [facility] RATE ESTIMATE 5:15 AM [facility] REPOSITORY Order Comment: AM Draw TYPE CODE TESTS RESULT OUT OF REFERENCE UNITS RANGE LAB GFRNO(LOINC mL/min/1.73 ) GFR if m 2 Non- >60 Belgian LAB GFRAA(LOINC mL/min/1.73 ) GFR if m 2 >60 Belgian Result Comment: Population mean GFR = 93 mL/min/1.73 sq.m. for ages 50-59 years. Chronic Kidney Disease: Less than 60 mL/min/1.73 square metersEnd Stage Renal Disease: Less than 15 mL/min/1.73 square meters Performed By: #### GFR ####[address] [address] A1C HGB Collected: 02/14/2017 Status: F Source: [facility] 5:15 AM FOUNDATION REPOSITORY Order Comment: AM Draw TYPE CODE TESTS RESULT OUT OF RANGE REFERENCE UNITS LAB A1C(LOINC) 4.8-5.9 % A1C 5.7 Hgb Performed By: #### A1C ####[place], [address] [place] [address] CT ABD/PELVIS W/ IV Observed: 02/13/2017 Status: F Source: [facility] CONTRAST ONLY 9:01 PM [facility] REPOSITORY ORIGINALCT ABD/PELVIS W/ IV CONTRAST ONLY:Multiplanar coronal, sagittal, and axial reconstructions were reviewed on a separate workstation CLINICAL STATEMENT: pain, left lower quadrant x1 week, smoker COMPARISON: 10/27/2016 FINDINGS: Images of the lower thorax demonstrate innumerable bibasilar punctate nodules, stable from the prior exam in 2016. The heart is not enlarged. No pleural or pericardial effusion. The liver, gallbladder, common bile duct, pancreas, spleen, and adrenal glands are unremarkable. There is a delayed cortical nephrogram of the left kidney. Left lower pole renal cyst measures 1.4 cm with attenuation value of 41 Hounsfield units. There is adjacent perinephric versus pericolonic stranding (image 40 series 2, image 82 series 601). No obstructing lesion or hydronephrosis. The small bowel exhibits no disproportionate luminal dilatation or wall thickening. There is sigmoid diverticulosis. 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 There is no abdominal ascites or free intraperitoneal air. The abdominal aorta is atherosclerotic and nonaneurysmal. No abdominal or pelvic lymphadenopathy. Urinary bladder is well distended with mild circumferential wall thickening. The prostate is normal in size with dystrophic calcifications. There is no free pelvic fluid. There are no suspicious osseous lesions. Degenerative findings noted in the spine. IMPRESSION: 1. Decreased left cortical nephrogram. No vascular or obstructive etiology is identified on this exam. Are there symptoms to suggest pyelonephritis?2. Left lower pole kidney perinephric versus descending pericolonic stranding, which is nonspecific.3. Sigmoid diverticulosis without evidence of diverticulitis.4. Mild circumferential urinary bladder wall thickening, which is probably due to underdistention. 5. Stable innumerable punctate bibasilar lung nodules. I have personally reviewed the images of this examination and agree with the resident's findings and interpretation. Interpreted By: Tra Garica MDPreliminary Report By: Santiago Golden DOElectronically Signed By: Tra Garcia MD Dictated Date: 02/13/2017 10:21: 20 PM Prelim Date: 02/13/2017 10:33:45 PM Sign Date: 02/13/2017 10:59:51 PM XR CHEST 2 VIEWS Observed: 02/13/2017 Status: F Source: [facility] 9:01 PM [facility] REPOSITORY ORIGINALXR CHEST 2 VIEWS CLINICAL STATEMENT: Abdominal pain, chest pain, shortness of breath, smoker COMPARISON: 02/26/2015 FINDINGS: Cardiomediastinal contours are normal and stable. The aorta is atherosclerotic. There is stable right lower lobe linear scarring. The lungs are emphysematous. There is no focal consolidation, vascular congestion, pleural effusion, or pneumothorax. There are tiny scattered calcified granulomata in both lungs. Degenerative findings noted in the spine. IMPRESSION: No acute process or interval change. I have personally reviewed the images of this examination and agree with the resident's findings and interpretation. Interpreted By: Tra Garcia MDPreliminary Report By: Santiago Golden DOElectronically Signed By: Tra Garcia MD Dictated Date: 02/13/2017 9 :35:52 PM Prelim Date: 02/13/2017 9:38:17 PM Sign Date: 02/13/2017 10:24:14 PM URINALYSIS (AO) Collected: 02/13/2017 Status: F Source: [facility] 8:35 PM [facility] REPOSITORY Order Comment: CBN TYPE CODE TESTS RESULT OUT OF RANGE REFERENCE UNITS LAB SPCUA(WENDY NC) Specimen type VOID (u) LAB CLRUA(WENDY Abnormal NC) Color ORANGE LAB APPUA(WENDY Abnormal CLEAR NC) Appearance SL CLOUDY LAB SGUA(LOIN 1.015-1.025 C) Specific 1.020 gravity (u) LAB PHUA(LOIN 5.0 - 8.0 C) pH (u) 5.0 LAB LEUUA(WENDY Abnormal NEGATIVE NC) Leukocytes MODERATE LAB NITUA(WENDY NEGATIVE NC) Nitrites NEGATIVE LAB PROUA(WENDY Abnormal NEG - TRACE mg/dL NC) Protein 100 LAB GLUA(LOIN NEGATIVE mg/dL C) Glucose NEGATIVE LAB KETUA(WENDY NEGATIVE mg/dL NC) Ketones (u) NEGATIVE LAB UROUA(WENDY NORMAL E.U./dL NC) Urobilinogen 1.0 LAB BILUA(WENDY Abnormal NEGATIVE NC) Bilirubin (u) MODERATE LAB BLDUA(WENDY Abnormal NEG - TRACE NC) Blood or Hgb (u) MODERATE LAB WBCUA(WENDY Abnormal NONE SEEN /hpf NC) WBC LOADED LAB RBCUA(WENDY Abnormal NONE SEEN /hpf NC) RBC (u) 0-5 LAB BACUA(WENDY Abnormal NEGATIVE /hpf NC) Bacteria TRACE Performed By: #### UAKayla ####[place] [address] [place] [address] Observed: 02/13/2017 Status: F Source: [facility] CULTURE URINE 8:35 PM [facility] REPOSITORY CBNCBNMRN#: [id number] Name: DAMIAN TOM D.o.b.: 1960 Sex: MOrd# Loc Src Site [id number] MSUR UR Clean Void 02/13/17NTIBIOTICS AT COL.: See EBENEZER BunnMAN [facility]ER[facility] PHYS [address] [place] [address] C Kayla Mendez M E N T S CBNCBN Cultur e Urine FINALOrganism 01 Escherichia coli 02/16/17>100,000 organisms per mL Organi sm E. coliAntibiotic BLADIMIR Int _Cipro floxacin <1 SNitrofurantoin <32 SAmpicillin <8 SGentamicin <4 SSeptra <2/38 SLevofloxacin <2 SMeropenem <1 S DUMONT: S=Susceptible, I=Intermediate, R=Resistant, NS=Non Susceptible,SD=Susceptible Dose DependentFor Strep and Gent. 500: S=Synergy R=No Synergy ESBL= Suspected ESBL-producerRifampin should not be used alone for chemotherapy PRETTY= Beta Lactamase Positive For STAPHYLOCOCCAL isolates, use of Penicillins is inadvisablewhenBeta- Lactamase is positive. Staphylococcal isolates areconsidered heteroresistant when resistant to both Penicillin and Oxacillin. Useof other Penicillins and Cephalosporinsis inadvisable. ENTEROCOCCI usually require high doses of Ampicillin orPenicillin often combined with an aminoglycoside.A result of Synergy for Streptomycin 2000 or Gentamicin 500 indicatesPenicillin-Aminoglycoside synergy is likely.ESBL- producing organisms are capable of inactivating many of the newer cephems,monobactams, narrow-spectrum cephalosporinsand anti-gram negative bacterium penicillins.END OF KEY _KEY FOR RESULTS: - NEW RESULTATT.PHYS.: MARY CUELLAR LOCATION: [facility] [place].DATE: 02/13/17 PATIENT : DAMIAN TOM LMICROBIOLOGYPRINTED: 02/16/17 09:13 REGULAR 2 PAGE: 2 of 1 1 Performed By: #### CUR ####[facility], [address] [place] [address] CBC (AO) Collected: 02/13/2017 Status: F Source: [facility] 7:57 PM [facility]OUNDATION REPOSITORY Order Comment: CBN TYPE CODE TESTS RESULT OUT OF REFERENCE UNITS RANGE LAB WBC(LOINC) 4.60-10.80 10 3/mcL WBC 10.20 LAB RBCCT(LOIN 4.04-6.13 10 6/mcL C) RBC 5.04 LAB HGB(LOINC) 14.0-18.0 G/dL Hemoglobin 15.5 LAB HCT(LOINC) 42.0-52.0 % Hematocrit 44.3 LAB MCV(LOINC) 80.0-94.0 fL MCV 87.9 LAB MCH(LOINC) 27.0-31.2 pg MCH 30.8 LAB MCHC(LOINC 31.8-35.4 G/dL ) MCHC 35.0 LAB RDW(LOINC) 11.5-14.5 % RDW 14.1 LAB PLT(LOINC) 130-400 10 3/mcL Platelet 223 Count LAB MPV(LOINC) 7.4-10.4 fL Mean Platelet 9.4 Volume LAB LYM(LOINC) 10.0-50.0 % Lymphocyte % 12.1 LAB MON(LOINC) High 1.7-13.0 % Monocyte % 20.0 LAB JERMAN(LOINC) 37.0-80.0 % Neutrophil % 66.5 LAB EO(LOINC) 0.0-7.0 % Eosinophil % 1.1 LAB BAS(LOINC) 0.0-2.5 % Basophil % 0.3 LAB ABLYM(LOIN 0.77-3.85 10 3/mcL C) Lymphocyte, 1.20 Absolute LAB HENRI(LOINC High 0.15-1.00 10 3/mcL ) Monocyte, 2.00 Absolute LAB ANEU(LOINC High 2.85-6.16 10 3/mcL ) Neutrophil, 6.80 Absolute LAB AEOS(LOINC 0.00-0.40 10 3/mcL ) Eosinophil, 0.10 Absolute LAB ABAS(LOINC 0.00-0.19 10 3/mcL ) Basophil, 0.00 Absolute Performed By: #### CBCO ####[address] [address] LACTIC ACID Collected: 02/13/2017 Status: F Source: [facility] 7:57 PM [facility] REPOSITORY TYPE CODE TESTS RESULT OUT OF REFERENCE UNITS RANGE LAB LAC(LOINC) 0.5-2.2 mmol/L Lactic 1.3 acid Performed By: #### LAC ####[address] [address] LIPASE Collected: 02/13/2017 Status: F Source: [facility] 7:57 PM [facility] REPOSITORY Order Comment: CBN TYPE CODE TESTS RESULT OUT OF REFERENCE UNITS RANGE LAB LIP(LOINC) 8-78 IU/L Lipase 38 Performed By: #### LIP ####[address] [address] GLOMERULAR FILTRATION Collected: 02/13/2017 Status: F Source: [facility] RATE ESTIMATE 7:57 PM [facility] REPOSITORY Order Comment: CBN TYPE CODE TESTS RESULT OUT OF REFERENCE UNITS RANGE LAB GFRNO(LOINC mL/min/1.73 ) GFR if 57 m 2 Non- LAB GFRAA(LOINC mL/min/1.73 ) GFR if m 2 >60 Belgian Result Comment: Population mean GFR = 93 mL/min/1.73 sq.m. for ages 50-59 years. Chronic Kidney Disease: Less than 60 mL/min/1.73 square metersEnd Stage Renal Disease: Less than 15 mL/min/1.73 square meters Performed By: #### GFR ####[address] [address] COMP. METABOLIC PANEL Collected: 02/13/2017 Status: F Source: [facility] 7:57 PM [facility] REPOSITORY Order Comment: CBN TYPE CODE TESTS RESULT OUT OF REFERENCE UNITS RANGE LAB PROT(LOINC 6.0-8.3 G/dL ) T. Protein 7.2 LAB ALB(LOINC) Low 3.5-5.0 G/dL Albumin 3.3 LAB GLB(LOINC) G/dL Globulin 3.9 LAB AG(LOINC) Low 1.1-2.5 A/G Ratio 0.8 LAB BILT(LOINC 0.2-1.0 mg/dL ) T Bilirubin 0.6 LAB AP(LOINC) 40-135 IU/L Alk. 123 Phosphatase LAB AST(LOINC) High 10-40 IU/L AST / SGOT 67 LAB ALT(LOINC) High 10-35 IU/L ALT / SGPT 59 LAB GLU(LOINC) High 70-105 mg/dL Glucose 129 LAB NA(LOINC) Low 136-146 mEq/L Sodium 129 LAB K(LOINC) 3.5-5.1 mEq/L Potassium 3.7 LAB CL(LOINC) Low 98-107 mEq/L Chloride 96 LAB CO2(LOINC) 22-29 mEq/L CO2 25 LAB EBAL(LOINC mEq/L ) Electrolyte 8.0 Balance LAB BUN(LOINC) High 7-18 mg/dL BUN 30 LAB CRE(LOINC) High 0.6-1.2 mg/dL Creatinine (s) 1.3 LAB BC(LOINC) 7-27 BUN/Creatinine 23 Ratio LAB CA(LOINC) 8.4-10.2 mg/dL Calcium 10.0 Performed By: #### CMP ####Norm[place] [address] [address] TROPONIN I Collected: 02/13/2017 Status: F Source: [facility] 7:57 PM [facility] REPOSITORY TYPE CODE TESTS RESULT OUT OF REFERENCE UNITS RANGE LAB TROP(LOINC) 0.00-0.30 ng/mL Troponin I <0.30 Result Comment: >=0.30 Consistent with cardiac damage, increased clinicalrisk and possibility of myocardial infarction. Serialmeasurements, clinical history, appropriate symptomsand/or ECG changes may help assess possibility of NH.*Other non-acute coronary syndrome conditions such as CHF,myocarditis, pulmonary emboli, sepsis and cardiac surgerycould result in myocardial damage and increased troponinlevels. Performed By: #### TROP ####[place] [address] [place] [address] ALLERGIES ALLERGIES DATE TYPE / CODE NAME / CODE REACTION SEVERITY SOURCE 12/21/2015 Drug codeine/[id number] Rash Unknown [facility] Allergy/4160 1550(RXNORM) Hospital [address](SNOMED Repository CT) 11/11/2010 DRUG CODEINE UNKNOWN [facility] INGREDI/[address] [place] [address](SNOMED Repository CT) NG/[id number] CODEINE [facility] (SNOMED CT) [facility] Repository ENCOUNTERS ENCOUNTERS ADMIT/DISCHARGE ACCOUNT NUMBER ADMITTING ENCOUNTER LOCATION SOURCE CLASS 02/11/2018 [id number] [facility] ding:PSN Repository 02/09/2018 [id number] [facility] ding:PSN Repository 02/08/2018/02/09/20 [id number] Ambulatory [address] Other [place] Repository 02/08/2018/02/09/20 [id number] Ambulatory [address] MEDICAL Repository CENTERBuildi ng:CAGWS 02/08/2018/02/09/20 [id number] Ambulatory [address] Repository 02/08/2018 [id number] Ambulatory BBuilding:OP Critical access hospital Repository 02/03/2018/02/05/20 [id number] Ambulatory [address] Repository 02/01/2018 [id number] Ambulatory BBuilding:OP Critical access hospital Repository 02/01/2018 [id number] Ambulatory BBuilding:OS [facility] Repository 02/01/2018/02/02/20 [id number] Ambulatory [address] Repository 02/01/2018 [id number] Ambulatory [facility] Repository 02/01/2018/02/02/20 [id number] Ambulatory [address] [place] Repository 02/01/2018/02/03/20 [id number] Ambulatory [address] Repository 01/01/2018/01/04/20 [id number] POLO RUIZ, Inpatient BBuilding:MS [place]a [place] Encounter URRoom: [facility] 0230Bed: A Foundation Repository 02/13/2017/02/16/20 [id number] POLO RUIZ., Inpatient MILAN Norma [address] [place] Encounter [facility] :DCFrankm: [facility] [address]233Bed: A Repository PAYERS PAYERS ENCOUNTER GUARANTOR PAYER SUBSCRIBER SOURCE 02/11/2018 DAMIAN L Primary DAMIAN L Ruben [id number] [place] Insurance:MEDICARE LEWISDOB: Community RDL[place] PART A [facility] [id number] Number: Repository [address]Ijp: [phone] [id number] [phone] (HP) Date:2018-02-03 02/11/2018 Secondary DAMIAN L Ruben Insurance:MEDICAIDPol LEWISDOB: [facility] Number: [id number] Hospital [id number] Repository Date:2018-02-03 02/11/2018 Tertiary NOT GIVENUNK Ruben Insurance:SELF PAY [facility] Number: Effective Repository Date:2018-02-03 02/09/2018 ADMIAN L Primary DAMIAN L [place] [id number] [place] Insurance:MEDICARE LEWISDOB: [facility] RDLOT PART A [facility] [id number] Number: Repository [id number]: [phone] [id number] [phone] (HP) Date:2018-02-03 02/09/2018 Secondary DAMIAN L Ruben Insurance:MEDICAIDPol LEWISDOB: [facility] ic Number: [id number] Hospital [id number] Repository Date:2018-02-03 02/09/2018 Tertiary NOT GIVENUNK [place] Insurance:SELF PAY [facility] Number: Effective Repository Date:2018-02-03 02/08/2018 DAMIAN L Primary DAMIAN L [facility] LEWISDOB: Insurance:MEDICARE A LEWISDOB: [facility] Number: [id number] Repository [facility] [id number] [address] [place] [address] Date: [address]Azz: (HP) 02/08/2018 Secondary DAMIAN L [facility] Insurance:[facility]: [facility] [id number] Repository Number: [id number] Date: 02/08/2018 [facility] Insurance:MEDICARE LEWISDOB: [facility] PART APolicy Number: [id number] Repository [place] [address] [id number] [address] [place] [address], [place] Date:2018-02-08 [place], [place] [address]Wvz: [phone] [id number]: (HP) Name:MMail Code [phone] [address] (HP)Tel: (000) [phone], [place] [address] ([place]) [phone]: 02/08/2018 Secondary [facility] Insurance:MEDICARE LEWISDOB: [facility] PART BPolicy Number: [id number] Repository [id number] [address] [place] [address] Date:2018-02-08 [place], [place] [id number]: [phone]) Name:[facility] [phone] Administrators LLCPO (HP)Tel: (000) [address] [phone], 000[address] (WP) [place] [address]DQ: 02/01/2018 [facility]:MEDICARE LEWISDOB: [facility] PART APolicy Number: [id number] Repository [place] [id number] [address] [place] [address], [place] Date:2018-02-01 [place], [place] [address]Ane: ([id number]: (HP) Name:MMail Code AG [phone] [address] (HP)Tel: (000) [phone], [place] 000[address] (WP) [phone]: 02/01/2018 [facility] Insurance:MEDICARE LEWISDOB: [facility] PART BPolicy Number: [id number] Repository [id number] [address] [place] [address] Date:2018-02-01 - [facility] [place] [id number] [id number]: [phone]) Name:[facility] [phone] Administrators LLCPO (HP)Tel: (000) [address] [address]Algsoxuuf, 000-[address] (WP) [place] [address]ZV: 02/01/2018 [facility] LEWISDOB: Insurance:MEDICARE LEWISDOB: [facility] PART APolicy Number: [id number] Repository [place] [id number] [address] [place] [address], [place] Date:2018-02-01 [facility] [place] [address]Ged: ) [id number] [phone]: () Name:[place] [phone] [address] (HP)Tel: (000) [phone], [place] 000[address] (WP) [phone]: 02/01/2018 [facility] Insurance:MEDICARE LEWISDOB: [facility] PART BPolicy Number: [id number] Repository [id number] [address] [place] [address] Date:2018-02-01 [place] [id number] [address]Ysn: (330) Name:[facility] [phone] Administrators LLCPO (HP)Tel: (000) [address] [address]Thenbxoqt, 000-0000 (WP) [place] [address]VZ: 01/01/2018 [facility] LEWISDOB: Insurance:MEDICARE LEWISDOB: [facility] PART APolicy Number: [id number] Repository [place] [id number] [address] [place] [address], [place] Date:2018-01-01 [place], [place] [address]Jiz: ([id number] [phone]: (HP) Name:MMail Code [phone] [address] (HP)Tel: (000) [phone], [place] 000[address] ([place]) [phone]: 01/01/2018 Secondary [facility] Insurance:MEDICARE LEWISDOB: [facility] PART BPolicy Number: [id number] Repository [id number] [address] [place] [address] Date:2013-10-02 [place] [id number] [address]Rak: (330) Name:[facility] [phone] Administrators LLCPO (HP)Tel: (000) [address] [phone], 000-[address] (WP) [place] [address]IR: 02/13/2017 [facility] LEWISDOB: Insurance:MEDICARE LEWISDOB: [facility] PART APolicy Number: [id number] Repository [address] [place], [place] Date:2013-10-02 [id number]: [id number] [phone] (HP) Name:JAMAAL 02/13/2017 [facility] Insurance:MEDICARE LEWISDOB: Foundation PART BPolicy Number: [id number] Repository Effective Date:[id number] Name:JAMAAL
--- NOTE | 2018-02-11 13:49 | WT_ITS ---
PSN 6 Minute Walk Test - 6 Minute Walk Test 6 Minute Walk Test: 6 Minute Walk Test PSN:6-Minute Walk Test Start: 02/11/18 10: 04 Freq: Status: Active Protocol: [id number] Document 02/11/18 09:55 SMB (Rec: 02/11/18 10:13 SMB [id number]) 6 Minute Walk Test Date Performed 02/11/18 Time Performed 09:55 Height 6 ft Weight: 147 lb Weight in Pounds 147.[address]: Ludy Tavarez Assistive device used: None Pre-test Oxygen Delivery Method Room Air Pulse Ox (%) 99 Pulse Rate (60-100 beats/min) 75 Dyspnea Natali Scale (0-10) 0 Exertion Natali Scale (6-20) 6 1st minute Oxygen Delivery Method Room Air Pulse Ox (%) 98 Pulse Rate (60-100 beats/min) 85 2nd minute Oxygen Delivery Method Room Air Pulse Ox (%) 98 Pulse Rate (60-100 beats/min) 89 3rd minute Oxygen Delivery Method Room Air Pulse Ox (%) 97 Pulse Rate (60-100 beats/min) 95 4th minute Oxygen Delivery Method Room Air Pulse Ox (%) 98 Pulse Rate (60-100 beats/min) 87 5th minute Oxygen Delivery Method Room Air Pulse Ox (%) 98 Pulse Rate (60-100 beats/min) 88 6th minute Oxygen Delivery Method Room Air Pulse Ox (%) 98 Pulse Rate (60-100 beats/min) 93 Post-test Oxygen Delivery Method Room Air Pulse Ox (%) 98 Pulse Rate (60-100 beats/min) 75 Dyspnea Natali Scale (0-10) 0 Exertion Natali Scale (6-20) 6 Full Laps Walked 23 Partial Lap, Number of Tiles Walked 30 Total Distance Walked (ft) 1387 - Interpretation Interpretation: The patient ambulated 1387 feet over the course of 6 minutes on room air without assistive devices or breaks. Pretesting oxygen saturation was noted to be 99% on room air. With ambulation, the brad oxygen saturation was 97%. There was no significant exertional oxygen desaturation. - Recommendations Recommendations: There is no indication for the use of supplemental oxygen at this time.
== END ==
DX: J44.9 Chronic obstructive pulmonary disease, unspecified (principal)
CPT/HCPCS: 94618

== ENCOUNTER 2018-07-03 11:13 | Emergency (ER) | payer MEDICARE, MEDICAID, SELFPAY ==
[2018-07-03 11:14] VITALS: BP 117/71; PULSE 60; RESP 22; TEMP 36.6; O2SAT 98; BMI 16.7
--- NOTE | 2018-07-03 11:38 | RAD_ITS ---
STUDY: X-RAY - RIGHT SHOULDER REASON FOR EXAM: Male, 57 years old. Pain, injury TECHNIQUE: 2 view(s) of the shoulder. COMPARISON: None. FINDINGS: There is no fracture or dislocation. There is no osseous destruction. The glenohumeral and acromioclavicular joints are intact. RAD/Shoulder min 2 Views IMPRESSION: No fracture or dislocation Electronically Signed: Geovany Luke MD at 12:49 EDT Tel , Service support ,
[2018-07-03] MEDS: Naproxen 500 MG Tablet PO (11:53)
--- OUTSIDE RECORDS SUMMARY | 2018-07-03 12:01 | XMS RPT_ITS ---
:1960 Author Organization OHIP Support Name Relationship Address Phone D Unavailable Unavailable Unavailable BARAHONA, CHINTAN Unavailable [address] [place] [address] TEJA, CHINTAN Unavailable [address] + [place] [address] TEJA, CHINTAN Unavailable [address] + [place] [address] TEJA, CHINTAN Unavailable [address] + [place] [address] TEJA, CHINTAN Unavailable [address] + [place] [address] TEJA, CHINTAN Unavailable [address] + [place] [address] TEJA, CHINTAN Unavailable [address] + [place] [address] D Unavailable Unavailable Unavailable BARAHONA, CHINTAN Unavailable [address] [place] [address] D Unavailable Unavailable Unavailable BARAHONA, CHINTAN Unavailable [address] [place] [address] D Unavailable Unavailable Unavailable BARAHONA, CHINTAN Unavailable [address] + [address] [place] [address] D Unavailable Unavailable Unavailable BARAHONA, CHINTAN Unavailable [address] + [address] [place] [address] TEJA, CHINTAN Unavailable [address] + [place] [address] TEJA, CHINTAN Unavailable [address] + [place] [address] TEJA, CHINTAN Unavailable [address] + [place] [address] TEJA, CHINTAN Unavailable [address] + [place] [address] TEJA, CHINTAN Unavailable [address] + [place] [address] TEJA, CHINTAN Unavailable [address] [place] [address] Care Team Providers Name Role Phone SREEDHAR AMANDA Attending Unavailable SREEDHAR AMANDA Referring Unavailable Sincere Perea Primary Care Unavailable SREEDHAR AMANDA Attending Unavailable SREEDHAR AMANDA Referring Unavailable Sincere Perea Primary Care Unavailable SREEDHAR AMANDA E Attending Unavailable SREEDHAR AMANDA E Referring Unavailable PHYSICIAN, NONE Primary Care Unavailable MARY CUELLAR MD Consulting Unavailable MARY CUELLAR MD Admitting Unavailable MARY CUELLAR MD Attending Unavailable MARY JACKSON Attending Unavailable PHYSICIAN, NONE Primary Care Unavailable MARY JACKSON Attending Unavailable PHYSICIAN, NONE Primary Care Unavailable MARY JACKSON Attending Unavailable PHYSICIAN, NONE Primary Care Unavailable MINNA MOOREVICE PRESIDENT OF COMMUNICATIONS) Attending Unavailable MINNA MOORE (VICE PRESIDENT OF COMMUNICATIONS) Referring Unavailable MINNA MOORE (VICE PRESIDENT OF COMMUNICATIONS) Referring Unavailable LUDY DOMÍNGUEZ Attending Unavailable MINNA MOORE (VICE PRESIDENT OF COMMUNICATIONS) Referring Unavailable ENEIDA CALABRESE Attending Unavailable ENEIDA CALABRESE Referring Unavailable Primay Care Physicia, No Primary Care Unavailable EENIDA CALABRESE Consulting Unavailable ENEIDA CALABRESE Attending Unavailable ENEIDA CALABRESE Referring Unavailable Primay Care Physicia, No Primary Care Unavailable ENEIDA CALABRESE Consulting Unavailable Ruddy Torres D.O. Attending Unavailable Ruddy Torres D.O. Referring Unavailable Ruddy Torres D.O. Attending Unavailable Ruddy Torres D.O. Referring Unavailable Primay Care Physicia, No Primary Care Unavailable Ortega Flynn Attending Unavailable PROBLEMS PROBLEMS DATE TYPE CONDITION / CODE ATTENDING STATUS SOURCE Unknown J44.9 - Chronic Ruddy Torres, Active [place] 8 obstructive pulmonary D.O. Community disease, unspecified / Hospital J44.9(ICD-10) Repository Active Supraventricular VASILIY, Active [place] 1 tachycardia / [facility] Other I47.1(ICD-10) [place] Repository Active Encounter for VASILIY, Active [place] 8 preprocedural [facility] Other cardiovascular [place] examination / Repository Z01.810(ICD-10) Admitting Unknown / UNK(Unknown) VASILIY, Active [facility] 1 diagnosis [facility] Repository Active Thoracic aortic ectasia / NA Active [place] [address] I77.810(ICD-10) Clinic Main [place] Repository Active Encounter for other NA Active [place] [address] preprocedural examination Clinic Main / Z01.818(ICD-10) [place] Repository Active Family history of NA Active [place] [address] familial Clinic Main hypercholesterolemia / [place] Z83.42(ICD-10) Repository Active Unknown / UNK(Unknown) CHASITY, Active [address] (VICE PRESIDENT OF COMMUNICATIONS) Clinic Main [place] Repository PROCEDURES PROCEDURES No Procedure Records FoundRESULTS RESULTS CNCO Observed: 03/15/2018 Status: COMPLETED Source: [place] 12:00 AM CLINIC OTHER CAMPUS REPOSITORY Letter Text [facility] Cardiology [address] [facility] [address]Zeja: [phone] Jtfftya E. Shafer, [facility]2017Daleslye Tom[address] [id number] Damian Tom,We missed seeing you for your scheduled appointment with Dr. Amanda on03/12/18 at the [facility].Our goal is to offer the best possible care to our patients, so we areconcerned when you are unable to keep a scheduled appointment.Please call us at [phone] so that we can reschedule your appointment fora day and time that will work for you.If you find it difficult to keep your appointment, please notify our officeat least 24 hours in advance so that we may reschedule your appointment.We are glad that you have chosen [facility] for yourcardiovascular needs and hope to continue serving you in the future.Sincerely,Sreedhar Amanda MD( Signed electronically to expedite mailing) 6 MINUTE WALK TEST Observed: 02/11/2018 Status: F Source: [place] 1:49 PM [facility] RE[facility]ITORY [facility]/[address]breayazv[address] [place] [address]SJ#: [id number] Acct: [id number]: DAMIAN TOM Rep #: [id number]: 1960 57 From: Ruddy [address] Dr: LUDY DOMÍNGUEZ Date:Ordering Dr: Sex: M CLocation: PSNPSN 6 Minute Walk Test- 6 Minute Walk Test6 Minute Walk Test:6 Minute Walk TestPSN:6-Minute Walk Test Start: 02/11/18 10:04Freq: Status: ActiveProtocol: RESP.6MINWDocument 09:55 SMB (Rec: 02/11/18 10:13 SMB [id number])6 Minute Walk TestDate Performed 02/11/18Time Performed 09: 55Height 6 ftWeight: 147 lbWeight in Pounds 147.[address]: Luis Domínguezssistive device used: NonePre-testOxygen Delivery Method Room AirPulse Ox (%) 99Pulse Rate (60-100 beats/min) 75Dyspnea Natali Scale (0-10) 0Exertion Natali Scale (6-20) 61st minuteOxygen Delivery Method Room AirPulse Ox (%) 98Pulse Rate (60-100 beats/min) 852nd minuteOxygen Delivery Method Room AirPulse Ox (%) 98Pulse Rate (60-100 beats/min) 893rd minuteOxygen Delivery Method Room AirPulse Ox (%) 97Pulse Rate (60-100 beats/ min) 954th minuteOxygen Delivery Method Room AirPulse Ox (%) 98Pulse Rate (60-100 beats/min) 875th minuteOxygen Delivery Method Room AirPulse Ox (%) 98Pulse Rate (60-100 beats/min) 886th minuteOxygen Delivery Method Room AirPulse Ox (%) 98Pulse Rate (60-100 beats/min) 93Post-testOxygen Delivery Method Room AirPulse Ox (%) 98Pulse Rate ( 60-100 beats/min) 75Dyspnea Natali Scale (0-10) 0Exertion Natali Scale (6-20) 6Full Laps Walked 23Partial Lap, Number of Tiles Walked 30Total Distance Walked (ft) 1387- InterpretationInterpretation:The patient ambulated 1387 feet over the course of 6 minutes on room air without assistivedevices or breaks. Pretesting oxygen saturation was noted to be 99% on room air. Withambulation, the brad oxygen saturation was 97%. There was no significant exertional oxygendesaturation.- RecommendationsRecommendations:There is no indication for the use of supplemental oxygen at this time.02/11/18 1349 <Electronically signed by Ruddy Torres DO>Date Ruddy Torres DOCC : Date Dictated: 02/11/181347Date Transcribed: 02/11/181347Transcriptionist: Tonja Guo PULMONARY FUNCTION Observed: 02/10/2018 Status: F Source: [place] TEST 8:34 AM [facility] REPOSITORY [facility]Pulmonary Services/[address]bxaexci[address] [place], [place] [address]IT#: [id number] Acct: [id number]: DAMIAN TOM Rep #: [id number]: 1960 57 From: Ruddy [address]kins Dr: Status: REG [address] Dr: Date:Location: [facility] Sex: M CINTRODUCTION:The patient is a 57-year-old [...] areno previous pulmonary function studies available for comparison.02/10/1834 <Electronically signed by Ruddy Torres DO>Date Ruddy Torres DOCC : No Primary Care Physician; LUDY Domínguez Date Dictated: 02/10/18830Date Transcribed: 02/10/18830Transcriptionist: DBSigned PROGRESS Observed: 02/09/2018 Status: COMPLETED Source: [place] 8:14 AM [facility] REPOSITORY O ID: [id number]: Minna (Nurses Aide) HaagenService: (none)Author Type: Nurse PractitionerType: Progress NotesFiled: [...] to see and rex take recommendations on Elizabeth. This report is available to you in the shared medical record.?Written and verbal health teaching given to patient, patient verbalizesunderstanding and agrees with treatment plan. PROGRESS Observed: 02/08/2018 Status: COMPLETED Source: [place] 4:16 PM CLINIC OTHER CAMPUS REPOSITORY HNO ID: [id number]: Sreedhar Lucero: (none) Author Type: PhysicianType: Progress NotesFiled: 02/08/2018 5:40 PMNote Text:PERTINENT CARDIAC HISTORYPalpitationsSVTAortic root enlargementTobacco useADHERENCE TO GUIDELINESACE-I or ARB for HF with prior LVEF<40 (NQF 0081) - N/AASA or Plavix for ASHD (NQF 0067) - N/ABeta pasquale for ASHD with prior NC or prior LVEF<40 ( NQF 0070) - [...] to see and rex take recommendations on CharlieNikokimberlee. This report is available to you in [...] left knee- COPD (chronic obstructive pulmonary disease) ([facility])- DDD (degenerative disc disease), lumbar- Knee pain, left 09/18/2011- SVT (supraventricular tachycardia) (HCC)- Tobacco use disorderPAST SURGICAL HISTORYProcedure Laterality Date- APPENDECTOMYFAMILY HISTORYProblem Relation Age of Onset- COPD Mother- Heart Mother NC in 70s- Heart Father NC in 70s- Stroke FatherSocial History Marital status: [...] MD CNOV Observed: 02/08/2018 Status: COMPLETED Source: [place] 3:30 PM CLINIC OTHER CAMPUS REPOSITORY Office Visit (AGCARDWST) DAMIAN TOM ([id number]) 1960 [facility] Time Provider Department02/08/18 3:30 PM SREEDHAR AMANDA During your visit today, we recorded the following information about you: Pulse Blood pressure Weight 66/ minute 115/61 66 kgSreedhar Amanda MD 02/08/2018 5:40 PM SignedPERTINENT CARDIAC HISTORYPalpitationsSVTAortic root enlargementTobacco useADHERENCE TO GUIDELINESACE-I or ARB for HF with prior LVEFANDlt;40 (NQF 0081) - N/AASA or Plavix for ASHD (NQF 0067) - N/ABeta pasquale for ASHD with prior NC or prior LVEFANDlt;40 (NQF 0070) - N/ABeta [...] gentleman who is seen in consultation at [facility] of Minna Moore CNP, for recommendations regarding [...] left knee- COPD (chronic obstructive pulmonary disease) (HCC)- DDD ( degenerative disc disease), lumbar- Knee pain, left 09/18/2011- SVT (supraventricular tachycardia) (HCC)- Tobacco use disorderPAST SURGICAL HISTORYProcedure Laterality Date- APPENDECTOMYFAMILY HISTORYProblem Relation Age of Onset- COPD Mother- Heart Mother NC in 70s- Heart Father NC in 70s- Stroke FatherSocial History Marital status: [...] sinus bradycardia and is within normal limits.Electronically Signed:Sreedhar Amanda MDAmejuany 2017 4:16 [facility]: Harinder Hutton MD 02/08/2018 4:17 PM SignedLIFESTYLE [...] programs in your area.Referring Provider: SREEDHAR AMANDA [[id number]]Allergies As of Date: 02/08/2018 Noted Allergy ReactionCODEINE [...] the following areas and commit to making usp changes. EAT A WHOLE FOOD, PLANT BASED [...] your area.Follow-up and Disposition History RecordedEncounter Number: [id number] Status:Closed by SREEDHAR AMANDA MD on 02/08/18 PROGRESS Observed: 02/03/2018 Status: COMPLETED Source: [place] 8:12 AM [facility] MAIN CAMPUS REPOSITORY HNO ID: [id number]: Ludy MirService: (none) Author Type: PhysicianType: Progress NotesFiled: 02/03/2018 8:30 AMNote Text: PULMONARY MEDICINE HISTORY AND PHYSICALPatient Name: Damian Tom? ? CARE PHYSICIAN: Sincere Perea MD ?REFERRING PHYSICIAN: SelfCHIEF COMPLAINT : PRE-OP clearanceASSESSMENT/PLAN:1. Preoperative examination - ICD9: V72.84, ICD10: Z01.818 (primarydiagnosis)- patient has low risk 1.6% of pulmonary complication rate2. Chronic obstructive pulmonary disease, unspecified COPD type (HCC) -ICD9 : 496, ICD10: J44.9- continue Symbicort and nebulizer.3. Tobacco use disorder - ICD9: 305.1, ICD10: F17.60824 mins spent on counseling for smoking cessation. [...] going for surgery on Thursday of the feet and needsurgical clearance. Patient has ongoing SOB/ [...] Knee pain, left 09/18/2011- SVT (supraventricular tachycardia) ([facility])- Tobacco use disorderPAST SURGICAL HISTORYProcedure Laterality Date- APPENDECTOMYFAMILY HISTORYProblem Relation Age of Onset- COPD Mother- Heart Mother NC in 70s- Heart Father NC in 70s- Stroke FatherNo reported family hx of ILD fibrosis, PAH, Tb , lung cancer, Q0JUsstwylzwxmBhqooz HistorySubstance Use Topics- Smoking status: Current Every [...] No history of dysuria, frequency or incontinence, mass,hematuria,RETAIL RESET MERCHANDISER: Not reviewedMUSCULOSKELETAL: No serositis or scleroderma and [...] this basename: inr:1,ptsec:1Glucose (mg/dL)Date 02/01/2018 86 Potassium (mmol/L)02/01/2018 4.8 Sodium (mmol/L)Date 02/01/2018 137 Chloride (mmol/L)02/01/2018 100 CO2 (mmol/L) Date 02/01/2018 26 Creatinine (mg/dL)Date 02/01/2018 0.80-------- --BUN (mg/dL)02/01/2018 7 Anion Gap (mmol/L)02/01/2018 11 Calcium (mg/dL)02/01/2018 9.7 Protein, Total (g/dL)02/01/2018 7.7 Albumin (g/dL)Date 02/01/2018 3.9 Bilirubin, Total (mg/dL)Date 02/01/2018 0.5 Alkaline Phosphatase (U/L)Date 02/01/2018 89 AST (U/L)Date 02/01/2018 55 ALT (U/L)Date Value02/01/2018 49 GlucoseDate Value Ref Range Sfbfxg9702/01/2018 86 74 - 99 mg/dL FinalComment:The [place] Diabetes Association (ADA) provides guidance for cutoffvaluesfor fasting glucose and random glucose. The ADA defines fasting as nocaloricintake for at least 8 hours. Fasting plasma glucose results between 100 pd750ac/dL indicate increased risk for diabetes (prediabetes).Fasting plasma [...] Standards of Medical Care in Diabetes 2016, [place] DiabetesAssociation. Diabetes Care. 2016.39(Suppl 1). Medications reviewedEducation provided today regarding the stated disease statesVaccinations:PneumococcalInfluenzaPrevnar 13Electronically Signed:Vijay Sullivan 2017 CNOV Observed: 02/03/2018 Status: COMPLETED Source: [place] 8:00 AM [facility] REPOSITORY [facility] ---------DAMIAN TOM ([id number]) 1960 MDate Time Provider Department02/03/18 8:00 AM LUDY DOMÍNGUEZ [facility] During your visit today, we recorded the following information about you: Pulse Respiration Blood pressure Weight 65/minute 18/minute 108/77 65.3 kg Height 1.816 mHeacynthia [place] 02/03/2018 8:08 AM SignedCOPD Assessment Test (CAT)Scale: [...] don't sleep soundly because of my lung bbobsvd9P have lots of energy 0 1 2 3 4 5 I have no energy at all 2 TOTAL SCORE 18Heather Carlie Domínguez MD 02/03/2018 8:30 AM Addendum PULMONARY MEDICINE HISTORY AND PHYSICALPatient Name : Damian Tom? ? CARE PHYSICIAN: Sincere Perea MD ?REFERRING PHYSICIAN: Self COMPLAINT: PRE-OP clearanceASSESSMENT/PLAN:1. Preoperative examination - ICD9 : V72.84, ICD10: Z01.818 (primary diagnosis)- patient has low risk 1.6% of pulmonary complication rate2. Chronic obstructive pulmonary disease, unspecified COPD type (HCC) - ICD9:496, ICD10: J44.9- continue Symbicort and nebulizer.3. Tobacco use disorder - ICD9: 305.1, ICD10: F17.62280 mins spent on counseling for smoking cessation. [...] if hypoventilation or narcotic utilization.RTC in 2 weeksMuronald Domínguez MDInstructions:Written and verbal [...] left knee- COPD (chronic obstructive pulmonary disease) (HCC)- DDD (degenerative disc disease), lumbar- Knee pain, left 09/18/2011- SVT (supraventricular tachycardia) ([facility])- Tobacco use disorderPAST SURGICAL HISTORYProcedure Laterality Date- APPENDECTOMYFAMILY HISTORYProblem Relation Age of Onset- COPD Mother- Heart Mother [place] in 70s- Heart Father NC in 70s- Stroke FatherNo reported family hx [...] No history of dysuria, frequency or incontinence, mass,hematuria,RETAIL RESET MERCHANDISER: Not reviewedMUSCULOSKELETAL: No serositis or scleroderma and [...] basename: inr:1,ptsec:1Glucose (mg/dL)Date Value02/01/2018 86 Potassium (mmol/L)Date 02/01/2018 4.8 Sodium (mmol/L)Date 02/01/2018 137 Chloride (mmol/L)Date 02/01/2018 100 CO2 (mmol/L)Date Value02/01/2018 26 Creatinine (mg/dL)Date Value02/01/2018 0.80 BUN (mg/dL)Date Value02/01/2018 7 Anion Gap (mmol/L)Date Value02/01/2018 11 Calcium (mg/dL)Date Value02/01/2018 9.7 Protein, Total (g/dL)Date Value02/01/2018 7.7 Albumin (g/dL)Date Value02/01/2018 3.9 Bilirubin, Total (mg/dL)Date Value02/01/2018 0.5 Alkaline Phosphatase (U/L)Date Value 89 AST (U/L)Date Value02/01/2018 55 ALT (U/L)Date Value2017 49 GlucoseDate Value Ref Range Htznkv4602/01/2018 86 74 - 99 mg/dL FinalComment:The [place] Diabetes Association (ADA) provides guidance for cutoff [...] Standards of Medical Care in Diabetes 2016, [place] DiabetesAssociation. Diabetes Care. 2016.39(Suppl 1).-- --------Medications reviewedEducation provided today regarding the stated disease statesVaccinations:PneumococcalInfluenzaPrevnar 13Electronically Signed: Vijay Sullivan 2017Referring Provider: SELF [[id number]]Allergies As of Date: 02/03/2018 Noted Allergy ReactionCODEINE 11/11/2010 16 - UnknownDate Reviewed : 02/03/2018Reviewed by: Ludy Domínguez - Fully AssessedReason for Visit: Medical Clearance [1982] Primary Visit Diagnosis:Preoperative examination [Z01.818] Other Visit Diagnoses:Chronic obstructive pulmonary disease, unspecified COPD type (HCC) [J44.9] Tobacco use disorder [F17.200] SVT (supraventricular tachycardia) ( [facility]) [I47.1] DDD (degenerative disc disease), lumbar [M51.36] Dilated aortic root (HCC) [I77.810]Order(s):SIX MINUTE WALK [7759803] Order #: [id number] FUTURE SPIROMETRY BASELINE ONLY [] Order #: [id number] FUTURE OXIMETRY - NOCTURNAL [1000257] Order #: [id number] LUNG DIFFUSION CAPACITY (DLCO) [3207710] Order #: [id number] FUTURE LUNG VOLUMES [0765617] Order #: [id number] FUTUREPrescriptions as of 02/03/2018 Sig: BUDESONIDE-FORMOTEROL HFA [...] 02/03/2018 8: 05 AM >> HORTENCIA IBARRA [facility] Feb 03, 2018 8:05 AM No longer taking METRONIDAZOLE 500 MG TABLET >> Hortencia Ibarra 02/03/2018 8:05 AM >> HORTENCIA IBARRA ThuFeb 03, 2018 8:05 AM No longer taking PANTOPRAZOLE 40 MG TABLET,DELAYED RELEASE >> Hortencia Marpool 02/03/2018 8:05 AM >> HORTENCIA IBARRA [facility] Feb 03, 2018 8:05 AM No longer taking PREDNISONE 20 MG TABLET >> Hortencia Ibarra 02/03/2018 8:05 AM >& gt; HORTENCIA IBARRA [facility] Feb 03, 2018 8:05 AM No longer takingProblem List As Of Date 02/03/2018 Noted Resolved SVT (supraventricular tachycardia) [I47.1] INVALID FOR* Tobacco use disorder [F17.200] COPD (chronic obstructive pulmonary disease) [J* DDD (degenerative disc disease), lumbar [M51.36] Knee pain, left [M25.562] INVALID FOR* Backache, unspecified [M54.9] INVALID FOR* Dilated aortic root (HCC) [I77.810] INVALID FOR*Visit Notes:>> Hortencia Negron Feb 03, 2018 8:07 AM Status: SignedCOPD [...] energy at all 2 TOTAL SCORE 18Heather [place] MAMedications Discontinued During This Encounter predniSONE (DELTASONE) 20 mg tablet 01/03/2018 02/03/2018 Class: Historical Med Sig: Disc: Reason for discontinue is not on file.Disposition: Return in about 2 weeks (around 02/17/2018).Follow-up and Disposition History RecordedEncounter Number: [id number] Status:Closed by LUDY DOMÍNGUEZ MD on 02/03/18 CNCO Observed: 02/02/2018 Status: COMPLETED Source: [place] 12:00 AM [facility] REPOSITORY Letter TextChristy SADIE Moore [facility] FAMILY MEDICINEDaleslye Rosas [address] [address] [facility] #: [id number]/12/2017Dear Mr. Tom, I have received the results of your recent tests.The results of your lab tests were either normal or within the acceptablerange.We can discuss this at your next visit.Please do not hesitate to contact me with any questions.Sincerely,Minna Moore CNP CCDunlap [facility] Hospital Medicine Departmentelectronically signed to expedite mailing PROGRESS Observed: 02/01/2018 Status: COMPLETED Source: [place] 11:45 AM [facility] REPOSITORY HNO ID: [id number]: Yee (Rt) Avelino Gomez: (none)Author Type: TechnicianType: Progress NotesFiled: 02/01/2018 11:46 AMNote Text: Radiology Service Progress NotePATIENT NAME: Damian TomMRN: [id number] OF SERVICE: February 01, 2018TIME: 11:45 AMPATIENT IDENTITY VERIFICATION COMPLETED USING TWO (2) METHODS: Patientconfirmed name verbally and Date of .PATIENT GENDER DATA: MalePATIENT RELEVANT IMPLANT DATA REVIEWED: Not ApplicableRADIOLOGY DEPARTMENT: General X-ray: Exam(s) Completed: Chest X-RayPERIPHERAL IV DATA: Not applicableSIGNED BY: Ann Marie Aguilaril 2017 11:45 AM XR CHEST 2V FRONTAL/LAT Observed: 02/01/2018 Status: F Source: [place] 11:44 AM [facility] REPOSITORY * * *Final Report* * *DATE [...] minimal progressive loss of height of T7 vertebrae.Paralegal Instructor: BECCA Transcribe Date/Time: Feb 01 2018 2: 03PDictated by : SNOW DELEON MDThis examination was interpreted and the report reviewed and electronically signed by: SNOW DELEON MD on Feb 01 2018 2:05PM [id number] CBC AND DIFFERENTIAL Collected: 02/01/2018 Status: F Source: [place] 11:39 AM [facility] MA[facility] CAMP[facility] REPOSITORY TYPE CODE TESTS RESULT [...] k/uL Abs Lymph 3.03 LAB AMONO % [place]% 9.1 LAB AAMONO <0.87 k/uL Abs [place] 0.64 LAB AEOS % Eosin% 3.4 LAB AAEOS <0.46 k/uL Abs Eosin 0.24 LAB ABASO % Baso% 0.7 LAB AABASO <0.11 k/uL Abs Baso 0.05 LAB AUNRBC 0 /100 WBC NRBCs 0.0 LAB ABNRBC <0.01 k/uL Absolute nRBC <0.01 LAB DTYP DTYPE Auto Diff Performed By: #### CBCDIF, CMP, LIPB ####[facility] [place], [place] [phone] COMP METABOLIC PANEL Collected: 02/01/2018 Status: F Source: [place] 11:39 AM [facility] REPOSITORY TYPE CODE TESTS RESULT OUT OF REFERENCE UNITS RANGE LAB TP 6.3-8.0 g/dL Protein, Total 7.7 LAB ALB 3.9-4.9 g/dL Albumin 3.9 LAB CA 8.5-10.2 mg/dL Calcium, Total 9.7 LAB TBIL 0.2-1.3 mg/dL Bilirubin, 0.5 Total LAB ALKP 36-108 U/L Alkaline 89 Phosphatase LAB AST High 14-40 U/L AST 55 LAB GLU 74-99 mg/dL Glucose 86 Result Comment: The [place] Diabetes Association (ADA) provides guidance for cutoff values for fasting glucose and random glucose. The ADA defines fasting as no caloric intake for at least 8 hours. Fasting plasma glucose results between 100 to 125 mg/dL indicate increased risk for diabetes (prediabetes) .Fasting [...] Standards of Medical Care in Diabetes 2016, [place] [employer]. Diabetes Care. 2016.39( Suppl 1). LAB BUN Low 9-24 mg/dL BUN [...] GFR. Performed By: #### CBCDIF, CMP, LIPB ####[facility] [address] [place], [place] [phone] LIPID PANEL, BASIC Collected: 02/01/2018 Status: F Source: [place] 11:39 AM [facility] REPOSITORY TYPE CODE TESTS RESULT OUT OF REFERENCE UNITS RANGE LAB CHOL <200 mg/dL Cholesterol 180 Result Comment: <200 mg/dL, Desirable 200-239 mg/dL, Borderline high>239 mg/dL, High LAB TRIGLY <150 mg/dL Triglyceride 57 Result Comment: <150 mg/dL, Normal 150-199 mg/dL, Borderline high 200-499 mg/dL, High>499 mg/dL, Very high LAB HDL >39 [...] levels are recommended to be < 100 mg/dL LAB FT hrs Fasting Time 16 LAB VLDL <30 mg/dL VLDL Cholesterol 11 LAB TCHDL <5.10 TC:HDL Ratio 2.73 LAB LDLHDL <2.54 LDL:HDL Ratio 1.56 Result Comment: Reference:1. National Cholesterol Education Program ATP III Guideline At-A-Glance Quick Desk Reference: National Heart, Lung, and Blood [place]. National Institutes of Health. 2001: NIH Publication No. 01- 3305.2. An International Atherosclerosis Society position paper: global recommendations for the management of dyslipidemia: executive summary, Atherosclerosis. 2014: 232(2):410-413. Performed By: #### CBCDIF, CMP, LIPB ####[facility] [place], [place] [phone] MAGNESIUM Collected: 02/01/2018 Status: F Source: [place] 11:39 AM [facility] REPOSITORY TYPE CODE TESTS RESULT OUT OF REFERENCE UNITS RANGE LAB MG 1.7-2.3 mg/dL Magnesium 2.0 Performed By: #### MG1 ####[facility] [place], [place] [phone] PROGRESS Observed: 02/01/2018 Status: COMPLETED Source: [place] 10:10 AM [facility] REPOSITORY HNO ID: [id number]: Minna (Nurses Aide) HaagenService: (none)Author Type: Nurse PractitionerType: Progress NotesFiled: 02/01/2018 3:48 PMNote Text:HISTORY AND PHYSICAL NQWOYYAPPSDFCPMTUGBHP49 year old male is here for consult to determine preoperative surgicalclearance requested by Dr. Jackson for anticipated surgery: correction ofright foot hallux valgus bunionette, tentatively scheduled for 02/12/2018at [facility].He plans to have the left foot corrected [...] medication: No.In addition, pt was inpatient at [facility] in [place] from 01/01/18-01/03/1810mfnd3. COPD exacerbation2. Hopoxia3. Acute hyponatremia4. Hypomagnesemia5. Diarrhea6. [...] of Onset - COPD Mother- Heart Mother [place] in 70s- Heart Father [place] in 70s- Stroke FatherPAST MEDICAL HISTORYDiagnosis Date- Aortic root dilation (HCC)- Arthritis left knee- COPD ( chronic obstructive pulmonary disease) ([facility])- DDD (degenerative disc disease), lumbar- Knee pain, left 09/18/2011- SVT (supraventricular tachycardia) ([facility])- Tobacco use disorderPAST SURGICAL HISTORYProcedure Laterality Date- [...] sons, 2 daughtersACTIVE PROBLEM LISTSvt (Supraventricular Tachycardia) ([facility]) Tobacco Use DisorderCopd (Chronic Obstructive Pulmonary Disease) ([facility])Ddd ( Degenerative Disc Disease), LumbarKnee Pain, LeftBackache, [...] no frequency, urgency, hematuria, dysuria. Nocturia X 2.RETAIL RESET MERCHANDISER: N/A : N/AEndocrine: No excessive thirst, excessive [...] Wt 64.9 kg (143 lb) BMI 19.67 kg/q3Rykeeqj: Alert and oriented, No acute distressSkin: Normal [...] further work-up, cardiac, and pulmonary clearancebefore surgical clearance.DARRYN WardOV Observed: 02/01/2018 Status: COMPLETED Source: [place] 10:00 AM [facility] REPOSITORY Office Visit (FAMPWS) ---------DAMIAN TOM ([id number]) 1960 MDate Time Provider Department02/01/18 10:00 AM MINNA MOORE (SADIE) FAMPWS During your visit today, we recorded the following information about you: Pulse Respiration Blood pressure Weight 72/minute 12/minute 106/58 64.9 kgChristy DARRYN Moore 02/01/2018 3:48 PM SignedHISTORY AND PHYSICAL MRXKFIZUIARXWHNHMALAG17 year old male is here for consult to determine preoperative surgicalclearance requested by Dr. Jackson for anticipated surgery: correction of rightfoot hallux valgus domonique, tentatively scheduled for at [facility].He plans to have the left foot corrected [...] medication: No.In addition, pt was inpatient at [facility] in [place] from 01/01/18-01/03/18 with1. COPD exacerbation2. Hopoxia3. Acute [...] Age of Onset- COPD Mother- Heart Mother [place] in 70s- Heart Father [place] in 70s- Stroke FatherPAST MEDICAL HISTORYDiagnosis Date- Aortic root dilation (HCC)- Arthritis left knee- COPD ( chronic obstructive pulmonary disease) ([facility])- DDD (degenerative disc disease), lumbar- Knee pain, left 09/18/2011- SVT (supraventricular tachycardia) ([facility])- Tobacco use disorderPAST SURGICAL HISTORYProcedure Laterality Date- [...] sons, 2 daughtersACTIVE PROBLEM LISTSvt (Supraventricular Tachycardia) ([facility])Tobacco Use DisorderCopd (Chronic Obstructive Pulmonary Disease) ([facility])Ddd (Degenerative Disc Disease), LumbarKnee Pain, LeftBackache, UnspecifiedCurrent [...] no frequency, urgency, hematuria, dysuria. Nocturia X 2.RETAIL RESET MERCHANDISER: N/A : N/AEndocrine: No excessive thirst, excessive [...] 64.9 kg (143 lb) BMI 19.67 kg/ g3Wumxlnc: Alert and oriented, No acute distressSkin: Normal [...] cardiac, and pulmonary clearance beforesurgical clearance.Minna Moore APRN.SADIEChcrownpoint healthcare facilitynelson Moore APRN.CNP 02/01/2018 11:03 AM Signed1. Labs [...] - UnknownDate Reviewed: 02/01/2018Reviewed by: Lacey Hayes Environmental Health And Safety Intern - Fully AssessedReason for Visit: pre opp [...] 1 InhalerRfl: 2 XR CHEST 2V FRONTAL/LAT [[id number]] Order #: [id number] FUTURE CBC + DIFF [SQCBCDIF] Order #: [id number] FUTURE COMP METABOLIC PANEL [SQCMP] Order #: [id number] FUTURE ECG COMPLETE W INTERPRETATION [ECG01] Order #: [id number] FUTURE ECHO [737051] Order #: [id number]: 1 FUTURE CONSULT TO PULM/CRITICAL CARE [810536] Order # : [id number]: 1 CONSULT TO CARDIOLOGY [9004] Order #: [id number]: 1 LIPID PANEL BASIC [SQLIPB] Order #: [id number] FUTURE MAGNESIUM BLD [SQMG1] Order #: [id number] FUTUREPrescriptions as of 02/01/2018 Sig: BUDESONIDE-FORMOTEROL HFA [...] 1 tablet by mouth once daily. Take deg829 mg tab daily for 3 days; then [...] to improve.Follow-up and Disposition History RecordedEncounter Number: [id number] Status:Closed by MINNA MOORE CNP on 02/01/18 MG Collected: 01/03/2018 Status: F Source: [facility] 5:34 AM [facility] REPOSITORY TYPE CODE TESTS RESULT OUT OF REFERENCE UNITS RANGE LAB MG(LOINC) 1.7-2.5 mg/dL Magnesium 1.8 Lvl Performed By: #### MG, GFR, BMP ####[facility] [place], [place] [address]#### MYCO ####[place] [address] .GFR Collected: 01/03/2018 Status: F Source: [facility] 5:34 AM [facility] REPOSITORY TYPE CODE TESTS RESULT OUT OF REFERENCE UNITS RANGE LAB GFRAA(LOINC ml/min/1.73 ) GFR 113 sqm Result Comment: GFR Population mean for , Non- Americans Ages 20-29 = 116 mL/min/1.73 sq.m. Ages 30-39 = 107 mL/min/1.73 sq.m. Ages 40-49 = 99 mL/min/1.73 sq.m. Ages 50-59 = 93 mL/ min/1.73 sq.m. Ages 60-69 = 85 mL/min/1.73 sq.m. Ages 70+ = 75 mL/min/1.73 sq.m.Chronic Kidney Disease: Less than 60 mL/min/1.73 square metersEnd Stage Renal Disease: Less than 15 mL/min/1.73 square meters LAB GFRNO(LOINC) ml/min/1.73sqm GFR Non- >60 Result Comment: GFR Population mean for , Non- Americans Ages 20-29 = 116 mL/min/1.73 sq.m. Ages 30-39 = 107 mL/min/1.73 sq.m. Ages 40-49 = 99 mL/min/1.73 sq.m. Ages 50-59 = 93 mL/ min/1.73 sq.m. Ages 60-69 = 85 mL/min/1.73 sq.m. Ages 70+ = 75 mL/min/1.73 sq.m.Chronic Kidney Disease: Less than 60 mL/min/1.73 square metersEnd Stage Renal Disease: Less than 15 mL/min/1.73 square meters Performed By: #### MG, GFR, BMP ####Norma [address] [place], [place] [address]#### MYCO ####[place] [address] BMP Collected: 01/03/2018 Status: F Source: [facility] 5:34 AM [facility] REPOSITORY TYPE CODE TESTS RESULT OUT [...] Performed By: #### MG, GFR, BMP ####Norma [place] [place], [place] [address]#### MYCO ####[place] [address] MYCO Collected: 01/03/2018 Status: F Source: [facility] 5:34 AM [facility] REPOSITORY TYPE CODE TESTS RESULT OUT OF REFERENCE UNITS RANGE LAB CD:[id number](LOINC) Mycoplasma Negative IgM Result Comment: INTERPRETATION OF MYCOPLASMA BY EIA ( Effective 11/07/04): Negative No detectable antibodies to M. pneumoniae. Indicates absence of current or previous infection. Positive Reactive for antibodies to M. pneumoniae. Indicates a past or recent infection. Equivocal Equivocal for antibodies to M. pneumoniae. Repeat testing by an alternate method suggested. LAB CD:[id number]([facility]) Mycoplasma IgG Neg Result Comment: INTERPRETATION OF MYCOPLASMA BY EIA ( Effective 11/07/04): Negative No detectable antibodies to M. pneumoniae. Indicates absence of current or previous infection. Positive Reactive for antibodies to M. pneumoniae. Indicates a past or recent infection. Equivocal Equivocal for antibodies to M. pneumoniae. Repeat testing by an alternate method suggested. Performed By: #### MG, GFR, BMP ####Norma [address] [place], [place] [address]#### MYCO ####[place] [address] Observed: 01/02/2018 Status: F Source: [facility] 1:25 PM [facility] REPOSITORY . MICRO - MicrobiologyPROCEDURE: Legionella Urine [...] causedisease.Performing Locations*1: This test was performed at: [address], [address] [place] [address] Performed By: #### FAM ####[place] [address] Observed: 01/02/2018 Status: F Source: [facility] SPA 1:25 PM [facility] REPOSITORY . MICRO - MicrobiologyPROCEDURE: Streptococcus Pneumoniae [...] children.Performing Locations*1: This test was performed at: [facility], [address] [place] [address], [address] [place] [address] Performed By: #### SPAG ####[address] [address] CBC Collected: 01/02/2018 Status: F Source: [facility] 5:16 AM [facility] REPOSITORY TYPE CODE TESTS RESULT OUT [...] #### CBC, ADIFF, ANEU, MG, GFR, CMP #### Norma [address] [place], [place] [address] .AUTO DIFF Collected: 01/02/2018 Status: F Source: [facility] 5:16 AM [facility] REPOSITORY TYPE CODE TESTS RESULT OUT [...] #### CBC, ADIFF, ANEU, MG, GFR, CMP #### Norma [address] [place], [place] [address] .NEUABS Collected: 01/02/2018 Status: F Source: [facility] 5:16 AM [facility] REPOSITORY TYPE CODE TESTS RESULT OUT OF REFERENCE UNITS RANGE LAB ANEU(LOINC) High 2.85-6.16 10 3/mcL 9.90 Neutrophil, Absolute Performed By: #### CBC, ADIFF, ANEU, MG, GFR, CMP #### Norma [address] [place], [place] [address] MG Collected: 01/02/2018 Status: F Source: [facility] 5:16 AM [facility] REPOSITORY TYPE CODE TESTS RESULT OUT OF REFERENCE UNITS RANGE LAB MG(LOINC) Low 1.7-2.5 mg/dL Magnesium 1.6 Lvl Performed By: #### CBC, ADIFF, ANEU, MG, GFR, CMP #### Norma [address] [place], [place] [address] .GFR Collected: 01/02/2018 Status: F Source: [facility] 5:16 AM [facility] REPOSITORY TYPE CODE TESTS RESULT OUT OF REFERENCE UNITS RANGE LAB GFRAA(LOINC ml/min/1.73 ) GFR 91 sqm Result Comment: GFR Population mean for , Non- Americans Ages 20-29 = 116 mL/min/1.73 sq.m. Ages 30-39 = 107 mL/min/1.73 sq.m. Ages 40-49 = 99 mL/min/1.73 sq.m. Ages 50-59 = 93 mL/ min/1.73 sq.m. Ages 60-69 = 85 mL/min/1.73 sq.m. Ages 70+ = 75 mL/min/1.73 sq.m.Chronic Kidney Disease: Less than 60 mL/min/1.73 square metersEnd Stage Renal Disease: Less than 15 mL/min/1.73 square meters LAB GFRNO(LOINC) ml/min/1.73sqm GFR Non- >60 Result Comment: GFR Population mean for , Non- Americans Ages 20-29 = 116 mL/min/1.73 sq.m. Ages 30-39 = 107 mL/min/1.73 sq.m. Ages 40-49 = 99 mL/min/1.73 sq.m. Ages 50-59 = 93 mL/ min/1.73 sq.m. Ages 60-69 = 85 mL/min/1.73 sq.m. Ages 70+ = 75 mL/min/1.73 sq.m.Chronic Kidney Disease: Less than 60 mL/min/1.73 square metersEnd Stage Renal Disease: Less than 15 mL/min/1.73 square meters Performed By: #### CBC, ADIFF, ANEU, MG, GFR, CMP #### Norma [address] [place], [place] [address] CMP Collected: 01/02/2018 Status: F Source: [facility] 5:16 AM [facility] REPOSITORY TYPE CODE TESTS RESULT OUT [...] #### CBC, ADIFF, ANEU, MG, GFR, CMP #### Norma [address] [place], [place] [address] BMP Collected: 01/01/2018 Status: F Source: [facility] 11:01 [facility] [...] Performed By: #### BMP, GFR ####Norma [place] [place], [place] [address] .GFR Collected: 01/01/2018 Status: F Source: [facility] 11:01 PM [facility] REPOSITORY TYPE CODE TESTS RESULT OUT OF REFERENCE UNITS RANGE LAB GFRAA(LOINC ml/min/1.73 ) GFR 79 sqm Result Comment: GFR Population mean for , Non- Americans Ages 20-29 = 116 mL/min/1.73 sq.m. Ages 30-39 = 107 mL/min/1.73 sq.m. Ages 40-49 = 99 mL/min/1.73 sq.m. Ages 50-59 = 93 mL/ min/1.73 sq.m. Ages 60-69 = 85 mL/min/1.73 sq.m. Ages 70+ = 75 mL/min/1.73 sq.m.Chronic Kidney Disease: Less than 60 mL/min/1.73 square metersEnd Stage Renal Disease: Less than 15 mL/min/1.73 square meters LAB GFRNO(LOINC) ml/min/1.73sqm GFR Non- >60 Result Comment: GFR Population mean for , Non- Americans Ages 20-29 = 116 mL/min/1.73 sq.m. Ages 30-39 = 107 mL/min/1.73 sq.m. Ages 40-49 = 99 mL/min/1.73 sq.m. Ages 50-59 = 93 mL/ min/1.73 sq.m. Ages 60-69 = 85 mL/min/1.73 sq.m. Ages 70+ = 75 mL/min/1.73 sq.m.Chronic Kidney Disease: Less than 60 mL/min/1.73 square metersEnd Stage Renal Disease: Less than 15 mL/min/1.73 square meters Performed By: #### BMP, GFR ####Norma [address] [place], [place] [address] CT ABD/PELVIS W/ IV Observed: 01/01/2018 Status: F Source: [facility] CONTRAST ONLY 3:04 PM [facility] REPOSITORY ORIGINALCT Abdomen and Pelvis with IV [...] 2 VIEWS Observed: 01/01/2018 Status: F Source: [facility] 2:32 PM [facility] REPOSITORY ORIGINALXR CHEST 2 [...] 2:48:41 PM Observed: 01/01/2018 Status: F Source: [employer] RFLU 1:51 PM [facility] REPOSITORY . MICRO - MicrobiologyPROCEDURE: Rapid Influenza [...] technology.Performing Locations*1: This test was performed at: [address] Performed By: #### RFLU ####[place] [address] CBC Collected: 01/01/2018 Status: F Source: [facility] 1:51 [facility] [...] #### CBC, ADIFF, ANEU, LIP, CMP, GFR #### [place] [address] .AUTO DIFF Collected: 01/01/2018 Status: F Source: [facility] 1:51 PM [facility] REPOSITORY TYPE CODE TESTS RESULT OUT [...] #### CBC, ADIFF, ANEU, LIP, CMP, GFR #### Norma [address] [place], [place] [address] .NEUABS Collected: 01/01/2018 Status: F Source: [facility] 1:51 PM [facility] REPOSITORY TYPE CODE TESTS RESULT OUT OF REFERENCE UNITS RANGE LAB ANEU(LOINC) High 2.85-6.16 10 3/mcL 6.50 Neutrophil, Absolute Performed By: #### CBC, ADIFF, ANEU, LIP, CMP, GFR #### Norma [address] [place], [place] [address] LIP Collected: 01/01/2018 Status: F Source: [facility] 1:51 PM [facility] REPOSITORY TYPE CODE TESTS RESULT OUT OF REFERENCE UNITS RANGE LAB LIP(LOINC) 8-78 IU/L Lipase 33 Level Performed By: #### CBC, ADIFF, ANEU, LIP, CMP, GFR #### Norma [place] [place], [place] [address] CMP Collected: 01/01/2018 Status: F Source: [facility] 1:51 PM [facility] REPOSITORY TYPE CODE TESTS RESULT OUT [...] #### CBC, ADIFF, ANEU, LIP, CMP, GFR #### [facility] [place] [address] .GFR Collected: 01/01/2018 Status: F Source: [facility] 1:51 PM [facility] REPOSITORY TYPE CODE TESTS RESULT OUT OF REFERENCE UNITS RANGE LAB GFRAA(LOINC ml/min/1.73 ) GFR 48 sqm Result Comment: GFR Population mean for , Non- Americans Ages 20-29 = 116 mL/min/1.73 sq.m. Ages 30-39 = 107 mL/min/1.73 sq.m. Ages 40-49 = 99 mL/min/1.73 sq.m. Ages 50-59 = 93 mL/ min/1.73 sq.m. Ages 60-69 = 85 mL/min/1.73 sq.m. Ages 70+ = 75 mL/min/1.73 sq.m.Chronic Kidney Disease: Less than 60 mL/min/1.73 square metersEnd Stage Renal Disease: Less than 15 mL/min/1.73 square meters LAB GFRNO(LOINC) ml/min/1.73sqm GFR Non- 39 Result Comment: GFR Population mean for , Non- Americans Ages 20-29 = 116 mL/min/1.73 sq.m. Ages 30-39 = 107 mL/min/1.73 sq.m. Ages 40-49 = 99 mL/min/1.73 sq.m. Ages 50-59 = 93 mL/ min/1.73 sq.m. Ages 60-69 = 85 mL/min/1.73 sq.m. Ages 70+ = 75 mL/min/1.73 sq.m.Chronic Kidney Disease: Less than 60 mL/min/1.73 square metersEnd Stage Renal Disease: Less than 15 mL/min/1.73 square meters Performed By: #### CBC, ADIFF, ANEU, LIP, CMP, GFR #### Norma [address] [place], [place] [address] RESPID Collected: 01/01/2018 Status: F Source: [facility] 1:46 PM [facility] REPOSITORY Order Comment: Order added by MB_[id number] TYPE CODE TESTS RESULT OUT OF REFERENCE UNITS RANGE LAB RESADENO( Not Detected LOINC) Adenovirus Not Detected LAB COVHKU1(L Not Detected OINC) Coronavirus HKU1 Not Detected LAB COVNL63(L Not Detected OINC) Coronavirus NL63 Not Detected LAB KfJ416B(L Not Detected OINC) Coronavirus 229E Not Detected [...] Not Parapertussis Detected Performed By: #### RESPID ####[place] [address] ALLERGIES ALLERGIES DATE TYPE / CODE NAME / CODE REACTION SEVERITY SOURCE 07/03/2018 Drug codeine/J43259 Rash Unknown [facility] Allergy/4160 1550(RXNORM) [facility] [address]35(SNOMED Repository CT) 11/11/2010 DRUG CODEINE UNKNOWN [facility] INGREDI/4195 Other [place] [address](SNOMED Repository CT) /[id number] CODEINE [facility] (SNOMED CT) [facility] Repository ENCOUNTERS ENCOUNTERS ADMIT/DISCHARGE ACCOUNT NUMBER ADMITTING ENCOUNTER LOCATION SOURCE CLASS 07/03/2018 [id number] Emergency [facility] ding:ED Repository 03/12/2018 [id number] Ambulatory [facility] MEDICAL Repository CENTERBuildi ng:CAGWS 02/19/2018/02/20/20 [id number] Ambulatory BBuilding:[address] [address]Bed: A [facility] Repository 02/16/2018/02/17/20 [id number] Ambulatory [address] ding:OPRS [facility] Repository 02/11/2018 [id number] Ambulatory [facility] ding:PSN Repository 02/11/2018 [id number] Ambulatory BMSBuilding: [facility] Repository 02/10/2018 [id number] Ambulatory BMSBuilding: [facility] Repository 02/09/2018 [id number] Ambulatory [facility] ding:PSN Repository 02/08/2018/02/09/20 [id number] Ambulatory [address] Other [place] Repository 02/08/2018/02/09/20 [id number] Ambulatory [address] MEDICAL Repository CENTERBuildi ng:CAGWS 02/08/2018/02/09/20 [id number] Ambulatory [address] Main [place] Repository 02/03/2018/02/05/20 [id number] Ambulatory [address] Repository 02/01/2018 [id number] Ambulatory BBuilding:[facility] Repository 02/01/2018/02/02/20 [id number] Ambulatory [address] Repository 02/01/2018 [id number] Ambulatory [facility] Repository 02/01/2018/02/02/20 [id number] Ambulatory [address] Repository 02/01/2018/02/03/20 [id number] Ambulatory [address] Repository 01/01/2018/01/04/20 [id number] POLO RUIZ, Inpatient BBuilding: Norma Valerio MARY Smith Encounter URRoom: [place] [address]Bed: [facility] Repository PAYERS PAYERS ENCOUNTER GUARANTOR PAYER SUBSCRIBER SOURCE 07/03/2018 DAMIAN Rosas Primary DAMIAN L Ruben [id number] [place] Insurance:MEDICARE LEWISDOB: [facility]ly [facility] PART A [facility] [id number] Number: Repository [address]Akd: [phone] [id number] [phone] (HP) Date:2018-07-03 07/03/2018 Secondary DAMIAN L [place] Insurance:[facility]ICAIDP[facility] CenterB: [facility] Number: [id number] Hospital [id number] Repository Date:2018-07-03 07/03/2018 Tertiary NOT GIVENUNK Ruben Insurance:SELF PAY [facility] Number: Effective Repository Date:2018-07-03 03/12/2018 DAMIAN L Primary DAMIAN L [facility] LEWISDOB: Insurance:MEDICARE A LEWISDOB: Health System [id number] AND olicy Number: [id number] Repository [place] [address] [facility] [id number] [address] [place] [address] Date: 989[address]Nwd: (HP) 03/12/2018 Secondary DAMIAN L [facility] Insurance:[place] LEWISDOB: [facility] MEDICAIDPol[facility] [id number] Repository Number: [id number] Date: 02/19/2018 DAMIAN Rosas Primary DAMIAN [facility] LEWISDOB: Insurance:MEDICARE LEWISDOB: [facility] PART BPolicy Number: [id number] Repository [place] RDLOT [id number] [address]OLOR[address] R[address] [place] [address] Date:2018-02-01 [place], [place] [address]Sgu: (262) [id number] [id number]: (HP) Name:[address] Administrators LLCPO ()Tel: (000) [address] [address]Xjpuktyjx, 000-0000 ([place]) [place] [address]DO: 02/16/2018 DAMIAN Rosas Primary DAMIAN [facility] LEWISDOB: Insurance:MEDICARE LEWISDOB: [facility] PART BPolicy Number: [id number] Repository [place] RDLOT [id number] 2 NJOSIRIS [address] [place] [address] Date:2018-02-[address] [place] [address]Axa: [phone] [phone]: (HP) Name:[facility] [phone] Administrators LLCPO (HP)Tel: (000) [address] [address]Bdabrtrzq, 000-0000 ([place]) [place] [address]AZ: 02/11/2018 DAMIAN Rosas Primary DAMIAN L Ruben [id number] [place] Insurance:MEDICARE LEWISDOB: [facility] RDLOT PART A BPolic [id number] Number: Repository [address]Ryi: 330 [id number] [phone] (HP) Date:2018-02-03 02/11/2018 Secondary DAMIAN L Ruben Insurance:MEDICAIDPol LEWISDOB: [facility] ic Number: [id number] Hospital [id number] Repository Date:2018-02-03 02/11/2018 Tertiary NOT GIVENUNK [place] Insurance:SELF PAY [facility] Number: Effective Repository Date:2018-02-03 02/11/2018 DAMIAN L Primary DAMIAN L [place] [id number] [place] Insurance:MEDICARE LEWISDOB: Community RDLOT PART A [facility] [id number], [place] Number: Repository [address]Ezs: 330 [id number] [phone] (HP) Date:2018-02-03 02/11/2018 Secondary DAMIAN L [place] Insurance:MEDICAIDPol LEWISDOB: [facility] ic Number: [id number] Hospital [id number] Repository Date:2018-02-03 02/11/2018 Tertiary NOT GIVENUNK [place] Insurance:SELF PAY [facility] Hospital Number: Effective Repository Date:2018-02-11 02/10/2018 DAMIAN L Primary DAMIAN L [place] [id number] [place] Insurance:MEDICARE LEWISDOB: Community RDLOT PART A [facility] [id number], [place] Number: Repository [phone]: 330 [id number] [phone] () Date:2018-02-03 02/10/2018 Secondary DAMIAN L Ruben Insurance:MEDICAIDPol LEWISDOB: [facility] ic Number: [id number] Hospital [id number] Repository Date:2018-02-03 02/10/2018 Tertiary NOT GIVENUNK Rub[place] Insurance:SELF PAY [facility] Number: Effective Repository Date:2018-02-10 02/09/2018 DAMIAN L Primary DAMIAN L [place] [id number] [place] Insurance:MEDICARE LEWISDOB: [facility] RDLOT PART A [facility] [id number], [place] Number: Repository [phone]: 330 [id number] [phone] (HP) Date:2018-02-03 02/09/2018 Secondary DAMIAN L Ruben Insurance:MEDICAIDPol LEWISDOB: [facility] ic Number: [id number] Hospital [id number] Repository Date:2018-02-03 02/09/2018 Tertiary NOT GIVENUNK [place] Insurance:SELF PAY [facility] Number: Effective Repository Date:2018-02-03 02/08/2018 DAMIAN L Primary DAMIAN L [facility] LEWISDOB: Insurance:MEDICARE A LEWISDOB: Health System AND BPolicy Number: [id number] Repository [place] RDLOT [id number] [address], [place] Date: [address]Zpu: (HP) 02/08/2018 Secondary DAMIAN [facility] [id number] Repository Number: [id number] Date: 02/01/2018 [facility] LEWISDOB: [facility] PART APolicy Number: [id number] Repository [place] RDLOT [id number] [place] [address] [address], [place] Date:2018-02-01 [place], [place] [address]Mgm: [id number]: (HP) Name:MMail Code AG [phone] [address] (HP)Tel: [phone]) [phone], [place] 000-0000 (WP) [address]UW: 02/01/2018 Secondary DAMIAN [facility] Insurance:MEDICARE LEWISDOB: [facility] PART BPolicy Number: [id number] Repository [id number] [place] Date:2018-02-01 - [place], [place] [id number]: (330) Name:[facility] [phone] Administrators LLCPO (HP)Tel: (000) [address] [address]Iitbjxpti, 000-0000 (WP) [place] [address]CN: 01/01/2018 DAMIAN [facility] DAMIANCritical access hospitalDOB: Insurance:MEDICARE LEWISDOB: [facility] PART APolicy Number: [id number] Repository [place] [id number] 2 [place], [place] Date:2018-01-01 [address], [place] [address]Ino: 330 [id number]: (HP) Name:MMail Code AG [phone] [address] (HP)Tel: (000) [phone], [place] 000-0000 (WP) [address]FE: 01/01/2018 Secondary [facility] Insurance:MEDICARE REDFIELDDOB: [facility] PART BPolicy Number: [id number] Repository [id number] [place] [address] Date:2013-10-02 [place], [place] [id number]: (330) Name:[facility] [phone] Administrators LLCPO (HP)Tel: (000) [address] [address]Yuqneykrc, 000-0000 (WP) [place] [address]WT:
--- NOTE | 2018-07-03 12:09 | RAD_ITS ---
STUDY: X-RAY - LUMBAR SPINE REASON FOR EXAM: Male, 57 years old. Injury, pain TECHNIQUE: 5 view(s) of the lumbar spine were obtained. COMPARISON: None FINDINGS: There is slight wedge deformity at the T11 vertebral body. There is degenerative spurring at the mid and lower lumbar region. No osseous destruction. There is no subluxation. RAD/L/S Spine Min 4 Views IMPRESSION: Slight anterior wedge deformity, T11 of indeterminate age Mild degenerative spurring of the lumbar spine Electronically Signed: Geovany Luke MD at 12:52 EDT Tel , Service support ,
--- NOTE | 2018-07-03 13:08 | ED.VISSUMM ---
- ER Visit Summary Date of Service: 07/03/18 Chief Complaint: Back pain and right shoulder pain History of Present Illness: The patient is a 57 M presenting with back pain and right shoulder pain since a fall that happened 3 weeks ago. He landed on his right side and hit his lower back. He landed on his right shoulder as well. He did not hit his head or lose consciousness. He has not had hip pain or lower extremity pain. He has had right lumbar back pain that is worse with bending and twisting. Better with rest. Also complaining of mild right shoulder pain that is worse with abduction above 90?. Denies any other injuries. Current severity is moderate. Denies bowel bladder dysfunction. Denies groin paresthesias. Physical Examination: No sign of head trauma. Neck is supple. Heart tones are regular and without murmur. Lungs are clear bilaterally. Abdomen is soft and nontender. No focal or lateralizing neuro findings. Normal strength and sensation is noted in both lower cavities. No clonus. Negative Babinski's. He has paraspinal lumbar tenderness on the right but no midline tenderness, erythema, or fluctuance. No thoracic tenderness or neck tenderness. Mild tenderness right shoulder laterally but skin is intact. No deformity. Test Results: Lumbar spine plain films revealed a questionable wedge deformity at T11 of uncertain age. Clinically, he is not tender at this site so I think it is doubtful that it represents an acute fracture. His pain is in the lumbar region and then there is no evidence of lumbar fracture. Overlying skin looks normal. I do not suspect organ injury. Right shoulder x-ray negative. His pain was addressed with Flexeril and naproxen and he did have improvement. Neurologic exam is normal and he can walk without difficulty. Emergency Department Course and Treatment: He was prescribed Flexeril and naproxen. He will follow-up if not improving and return if worse. Treatment Plan: Oral medication Disposition: Home stable condition Impression: Initial encounter right lumbar back pain after a fall, initial encounter right shoulder contusion This note was generated with [employer] dictation software. It may contain incorrect words, spelling, and punctuation that were not noted in review of the chart prior to signing ED Disposition - Plan for ED Patient: Chief Complaint: Back Instructions: ED Sprain Strain Lumbar, ED Contusion Back, ED Low Back Pain Injury, Shoulder Problems Prescriptions: Naproxen [Naprosyn] 500 mg PO BID PRN #20 tablet Cyclobenzaprine [Flexeril] 10 mg PO TID PRN #20 tablet PRN Reason: Muscle Spasm Referrals: Care Physician,No Primary [Primary Care Provider] -
[2018-07-03 13:39] VITALS: BP 158/68; PULSE 80; RESP 20; TEMP 35.5
== END 2018-07-03 13:40 | disposition home or self-care (01) ==
LOC: ED 11:59
PROVIDERS: Emergency Provider Emergency Medicine
DX: M54.5 Low back pain (principal); S40.011A Contusion of right shoulder, initial encounter; W19.XXXA Unspecified fall, initial encounter; Y93.9 Activity, unspecified; Y92.9 Unspecified place or not applicable; Z72.0 Tobacco use
CPT/HCPCS: 72110; 73030; 99283

== ENCOUNTER → 2019-09-02 12:49 | Outpatient (CLI) | payer MEDICARE, MEDICAID, SELFPAY ==
[2019-09-02 14:10] LABS: Absolute Lymphocyte Count 1.61 X10^3/uL (0.83-4.51); Absolute Neutrophil Count 8.1 X10^3/uL (2.0-7.7); Basophil# 0.05 X10^3/uL; Basophil% 0.4 % (0-1); Eosinophil# 0.08 X10^3/uL; Eosinophils% 0.7 % (0-5); Hematocrit 42.2 % (40-54); Hemoglobin 14.6 g/dL (13.0-16.5); Lymphocyte # 1.61 X10^3/ul (4.0); Lymphocyte % 14.5 % (19-41); Mean Corp Hgb Conc 34.6 g/dL (32-36); Mean Corpuscular Hgb 31.1 pg (27.0-32.0); Mean Corpuscular Volume 89.8 fL (80-94); Mean Platelet Vol. 10.7 fl (6.2-12.0); Monocyte# 1.22 X10^3/uL; NRBC Flagged by Analyzer 0 % (0-5); Neutrophil # 8.11 X10^3/uL (2.7-7.7); Neutrophil % 72.8 % (47-70); Platelet Count 261 K/mm3 (150-450); RBC Distribution Width SD 39.6 fl (35.1-43.9); White Blood Count 11.1 K/mm3 (4.4-11.0)
[2019-09-02 14:53] LABS: AST(SGOT) 33 U/L (15-37); Alanine Aminotransfer ALT/SGPT 52 U/L (16-61); Albumin, Serum 3.2 g/dL (3.2-5.0); Alkaline Phosphatase 79 U/L (45-117); Anion Gap 9 (5-15); BUN 9 mg/dL (7-18); Bilirubin, Direct 0.27 mg/dL (0.00-0.30); Calcium,Total 9.1 mg/dL (8.5-10.1); Chloride 99 mmol/L (98-107); Creatinine, Serum 1.12 mg/dL (0.70-1.30); EST Glomerular Filtration Rate 71 mL/min (>60); Est Glom Filt Rate - Afr Amer 86 mL/min (>60); Globulin 4.9 g/dL (2.2-4.2); Glucose 118 mg/dL (74-106); Potassium 4.1 mmol/L (3.5-5.1); Protein, Total 8.1 g/dL (6.4-8.2); Sodium Level 132 mmol/L (136-145); T4 Free Direct 1.45 ng/dL (0.76-1.46); Thyroid Stim Hormone (TSH) 1.11 uIU/mL (0.358-3.74)
== END ==
PROVIDERS: Family Provider Family Medicine; PCP Family Medicine; Referring Provider Dermatology; Visit Provider Dermatology
DX: L29.8 Other pruritus (principal); L28.1 Prurigo nodularis; L53.8 Other specified erythematous conditions; R20.8 Other disturbances of skin sensation; Z78.9 Other specified health status
CPT/HCPCS: 36415; 80048; 80076; 84439; 84443; 85025

== ENCOUNTER 2019-09-07 09:45 | Inpatient (IN) | payer MEDICARE, MEDICAID, SELFPAY ==
[2019-09-07] VITALS (8 sets, daily range): BP systolic 121–131; BP diastolic 73–90; PULSE 61–94; RESP 14–18; TEMP 36.4–37.3; O2SAT 97–99; BMI 17.2; BMI 17.4
--- NOTE | 2019-09-07 10:31 | ED.VISSUMM ---
- ER Visit Summary Date of Service: 09/07/19 Chief Complaint: Cough green phlegm with chest pain primarily with coughing and history of OPD. History of Present Illness: The patient is a 59 M 3 of hepatitis C and COPD. Patient had a prior cardiac cath. But he denies any coronary disease. He states that he has had a cough for the last 1 to 2 weeks of greenish phlegm. Chest pain with coughing. No exertional chest pain. No hemoptysis. No fever. No leg pain or swelling. No history of DVT or PE. He describes the pain is sharp and again primarily with coughing. He still does smoke. Treated at a primary care office prior to arrival. Their concern was possible new onset A. fib. Physical Examination: Older male vital signs stable afebrile. Currently is 91. HEENT exam unremarkable. Neck nontender no JVD. No lymphadenopathy. Lungs dry hacking cough. Diminished in the left base. Few scattered wheezes. Heart regular rhythm with PVCs rate about 90-100. No murmur. Chest wall nontender. Abdomen soft nontender normal bowel sounds no peritoneal signs. Patient is moving all 4 extremities. There are neurovascular intact. Calves are nontender without edema or cords. Back is nontender. Neurologically is awake and alert with no focal motor deficits. Test Results: Normal white count 8. Hemoglobin 16. Chemistries normal normal creatinine gap. Troponin normal. Chest x-ray chronic changes but no acute process. Normal cardiac silhouette mediastinum. Read both by myself the radiologist. One view portable. EKG A. fib rate of 101 also with PVCs. Emergency Department Course and Treatment: Patient with chest pain that sounds noncardiac worse with coughing. May or may not have a pneumonia. Currently he is not in A. fib he had a sinus rhythm with PVCs on our monitor. Treatment Plan: Repeat exam the patient is doing well at 1330. His current heart rate 73. He does appear to have frequent PVCs and intermittent A. fib. At other times he does appear to be in a sinus rhythm. He is in no distress. Disposition: Assigned observation. Impression: New onset A. fib History of COPD and hepatitis C This note was generated with [employer] dictation software. It may contain incorrect words, spelling, and punctuation that were not noted in review of the chart prior to signing ED Disposition - Plan for ED Patient: Referrals: Sincere Perea MD [Primary Care Provider] -
--- NOTE | 2019-09-07 11:39 | EKG12_ITS ---
Test Reason : CP Blood Pressure : / mmHG Vent. Rate : 101 BPM Atrial Rate : 115 BPM P-R Int : 000 ms QRS Dur : 080 ms QT Int : 336 ms P-R-T Axes : 000 086 072 degrees QTc Int : 435 ms Atrial fibrillation with rapid ventricular response with premature ventricular or aberrantly conducte d complexes Abnormal ECG Confirmed by LOLA RUIZ, KIRSTIN ([id number]), news video editor CHINTAN TODD ([id number]) on 09/13/2019 2:15:59 PM Referred By: Beth Mejia Confirmed By:KIRSTIN DAVILA MD
--- NOTE | 2019-09-07 11:39 | RAD_ITS ---
STUDY: X-RAY CHEST REASON FOR EXAM: Male, 59 years old. 1 1/2 weeks' history of chest pain and shortness of breath. TECHNIQUE: Single AP portable view of the chest. COMPARISON: None. FINDINGS: EKG electrodes are seen. Hyperinflation. Scattered calcified granulomas. There is no demonstrated pleural abnormality. Normal size heart. Normal mediastinum and tone. Normal visualized pulmonary arteries. Normal visualized aortic arch and descending thoracic aorta. There are diffuse degenerative changes of the visualized thoracic spine. Normal visualized ribs, clavicles, and shoulders. There is no demonstrated abnormality of the visualized soft tissue structures of the upper abdomen. RAD/Chest PA and Lateral IMPRESSION: Hyperinflation. Scattered calcified granulomas. Electronically Signed: Rizwan Raza, at 12:44 EST , Service support ,
[2019-09-07 11:46] LABS: Absolute Lymphocyte Count 3.13 X10^3/uL (0.83-4.51); Absolute Neutrophil Count 4.7 X10^3/uL (2.0-7.7); Basophil% 1.1 % (0-1); Eosinophil# 0.11 X10^3/uL; Eosinophils% 1.2 % (0-5); Hematocrit 45.1 % (40-54); Hemoglobin 16.3 g/dL (13.0-16.5); Lymphocyte # 3.13 X10^3/ul (4.0); Lymphocyte % 35.4 % (19-41); Mean Corp Hgb Conc 36.1 g/dL (32-36); Mean Corpuscular Hgb 31.6 pg (27.0-32.0); Mean Corpuscular Volume 87.4 fL (80-94); Mean Platelet Vol. 10.2 fl (6.2-12.0); Monocyte# 0.79 X10^3/uL; Monocyte% 8.9 % (0-10); NRBC Flagged by Analyzer 0 % (0-5); Neutrophil # 4.66 X10^3/uL (2.7-7.7); Neutrophil % 52.8 % (47-70); Platelet Count 383 K/mm3 (150-450); RBC Distribution Width CV 11.7 % (11.6-14.6); RBC Distribution Width SD 37.8 fl (35.1-43.9); Red Blood Count 5.16 M/mm3 (4.6-6.2); White Blood Count 8.8 K/mm3 (4.4-11.0)
[2019-09-07 11:59] LABS: Anion Gap 7 (5-15); BUN 6 mg/dL (7-18); BUN/Creat Ratio 6.4 RATIO (10-20); Chloride 104 mmol/L (98-107); Creatinine, Serum 0.94 mg/dL (0.70-1.30); EST Glomerular Filtration Rate 87 mL/min (>60); Est Glom Filt Rate - Afr Amer 105 mL/min (>60); Estimated Creatinine Clearance 72.22 ml/min; Glucose 105 mg/dL (74-106); Potassium 4.1 mmol/L (3.5-5.1); Sodium Level 136 mmol/L (136-145)
[2019-09-07] MEDS: Aspirin 81 MG TAB.CHEW 324 MG PO (12:09)
--- NOTE | 2019-09-07 13:30 | HP.PCM_ITS ---
Problem List (1) COPD exacerbation Status: Acute (2) Atrial fibrillation with RVR Status: Acute (3) Tobacco use Status: Chronic (4) Cannabis use, uncomplicated Status: Chronic (5) Severe protein-calorie malnutrition Status: Chronic History of Present Illness Date of Admission: 09/07/19 Chief Complaint: Cough, Productive Sputum, Wheezing, Palpitations The patient is a 59 y/o M w/ PMHx: Chronic COPD, Hepatitis C, Severe Protein Calorie Malnutrition, Tobacco use who presents to the [facility] ED on 09/07/19 with history of 1.5 weeks of progressively worsening dyspnea, worse with exertion, productive cough of green sputum, wheezing intermittent, rhinorrhea and congestion, notable diffuse chest and back pain secondary to coughing, worse with coughing, reproducible with palpation with sensation of palpitations prompting PCP evaluation with PCP office EKG with new onset atrial fibrillation with referral to the ED. patient notes that the palpitations are worse following coughing fits and seemed to lessen following rest. In the ED work-up included T 99.2, HR 91-130, increases with coughing otherwise rate controlled, BP 131/84, RR 19, 97% on RA, CBC w/ WBC 8.8, Hgb 16.3, Plts 383 without any marked shift, BMP unremarkable, Trop < 0.015, EKG concerning for new onset atrial fibrillation, rate controlled, CXR with chronic changes with no acute cardiopulmonary findings. In the ED patient administered ASA regimen. Past Medical History Past Medical History (Chronic Problems): Chronic Problems (This Medical Record has been edited. Action required.) Tobacco use (Chronic) Cannabis use, uncomplicated (Chronic) Severe protein-calorie malnutrition (Chronic) History of alcohol abuse (Chronic) COPD (chronic obstructive pulmonary disease) (Chronic) Ongoing tobacco abuse one pack a day Allergies codeine Allergy (Verified 09/07/19 09:46) Rash Home Medications: Ambulatory Orders Medication Instructions Recorded Albuterol Aerosols [Ventolin 2.5 mg INHALATION Q4H PRN PRN 09/07/19 Aerosols] Albuterol Sulfate [Albuterol 1 - 2 inhaler PO 4X/DAY PRN PRN 09/07/19 Sulfate Hfa] Budesonide/Formoterol 160/4.5 2 inhaler PO BID 09/07/19 [Symbicort 160/4.5 Mcg Inhaler (SP)] cycloBENZAPRine HCl [Flexeril] 10 mg PO TID PRN PRN 09/07/19 Surgical History: - - Bilateral foot surgery with hardware, tonsillectomy, appendectomy. Psychiatric History: No pertinent psych hx Lives: Alone Smoking Status: Current every day smoker - Patient admits to smoking appro ximately 1 pack every 3 days although less over the last 1.5 weeks with current illness. Tobacco Use: Cigarettes Alcohol: Sober - Patient is currently sober x1 month but heavy alcohol intake prior. Drugs: Marijuana - *Family History Maternal History Items: Heart Disease Paternal History Items: Heart Disease, Stroke Review of Systems Constitutional: Reports: Anorexia, Chills, Malaise, Weakness, Fatigue. Denies: Fever, Weight Change HEENT: Reports: Nasal Congestion, Post Nasal Drip, Sinus Congestion, Sinus Drainage, Sore Throat. Denies: Head Aches Cardiovascular: Reports: Chest Pain, Light Headedness, Palpitations. Denies: Chest Pressure, Chest Tightness, Orthopnea, Syncope Respiratory: Reports: Cough, Pleuritic Pain, Shortness of Breath, Shortness of breath at rest, Shortness of breath upon exertion, Sputum production, Wheezing Gastrointestinal: Denies: Abdominal Pain, Nausea, Vomiting Genitourinary: Denies: Dysuria Musculoskeletal: Reports: Back Pain, Joint Pain. Denies: Joint Tenderness Skin: Denies: Rash, Wounds Neurological: Denies: Numbness, Tingling, Focal weakness Psychiatric: Denies: Anxiety, Depression, Homicidal Ideations, Suicidal Ideations Hematologic/ Lymphatic: Denies: Easy Bruising, Easy Bleeding VTE Information - Inpt Only VTE Present on Admission: No VTE Mechan Device Prophylaxis: SCD's VTE Pharm Prophylaxis ordered?: Yes Patient Problems: Active and Suspected Problems (This Medical Record has been edited. Action required.) COPD exacerbation (Acute) Atrial fibrillation with RVR (Acute) Subjective: Seated upright in ED bed, fatigued appearance, coughing during examination with notable increased heart rate, frail and cachectic appearance. Objective: Physical Examination: General: awake, alert, oriented x 3 and cooperative, seated upright in ED bed, fatigued and ill-appearing, coughing frequently. Skin: normal color, turgor, no icterus, cyanosis except occasional abrasion. HEENT: AT/NC, EOMI, PERRLA, dry MM, irritated external nares, posterior OP erythema, no carotid bruits or JVD noted. Lungs: Severely diffusely diminished, > bilateral bases, mildly increased effort, very soft occasional distant and expiratory wheezing, no rales or rhonchi. Heart: Irregular irregular; no gallop, rub audible. Abdomen: soft, thin cachectic habitus, NTTP, ND, normal BS, no HSM. Extremities: no cyanosis, clubbing, or edema. Neurological: patient awake, alert, oriented x 3; cognitive function intact; pupils equally reactive to light and accomodation; cranial nerves II-XII grossly normal, moving all 4 extremities, no focal deficits, strength severely global decrease secondary to acute presentation. Psychiatric: affect appears fatigued, ill, no acute evidence of depressive or anxiety feelings. - Physical Exam Vitals/I&O's: Vital Signs Temp Pulse Resp BP Pulse Ox 99.2 F H 91 17 125/90 H 97 09/07/19 09:46 09/07/19 09:46 09/07/19 12:26 09/07/19 12:26 09/07/19 09:46 Oxygen Delivery Method Room Air Weight: 134 lb 11.2 oz Body Mass Index (BMI) 17.2 Laboratory Results 09/07/19 10:04: WBC 8.8, RBC 5.16, Hgb 16.3, Hct 45.1, MCV 87.4, MCH 31.6, MCHC 36.1 H, RDW Std Deviation 37.8, RDW Coeff of Tracy 11.7, Plt Count 383, MPV 10.2, Immature Gran % (Auto) 0.600, Neut % (Auto) 52.8, Lymph % (Auto) 35.4, Towner % (Auto) 8.9, Eos % (Auto) 1.2, Baso % (Auto) 1.1 H, Absolute Neuts (auto) 4.7, Absolute Lymphs (auto) 3.13, Nucleated RBC % 0 09/07/19 10:04: Sodium 136, Potassium 4.1, Chloride 104, Carbon Dioxide 25.0, Anion Gap 7, BUN 6 L, Creatinine 0.94, Estim Creat Clear Calc 72.22, Est GFR (MDRD) Af Amer 105, Est GFR (MDRD) Non-Af 87, BUN/Creatinine Ratio 6.4 L, Gl ucose 105, Calcium 10.0, Troponin I < 0.015 Assessment/Plan All Active Problems (This Medical Record has been edited. Action required.) COPD exacerbation (Acute) Atrial fibrillation with RVR (Acute) The patient is a 59 y/o M w/ PMHx: Chronic COPD, Hepatitis C, Severe Protein Calorie Malnutrition, Tobacco use who presents to the [facility] ED on 09/07/19 with h istory of 1.5 weeks of progressively worsening dyspnea, productive cough of green sputum, wheezing, rhinorrhea and congestion, notable diffuse chest and back pain secondary to coughing, worse with coughing, reproducible with palpation with sensation of palpitations prompting PCP evaluation with PCP office EKG with new onset atrial fibrillation with referral to the ED. (1) Acute on chronic COPD exacerbation suspected likely secondary to acute viral syndrome: ED work-up included T 99.2, HR 91-130, increases with coughing otherwise rate controlled, BP 131/84, RR 19, 97% on RA, CBC w/ WBC 8.8, Hgb 16.3, Plts 383 without any marked shift, CXR with chronic changes with no acute cardiopulmonary findings. Will admit to PCU given concurrent #2 presentation, maintain on oxygen with wean as tolerated to room air, continue ATC duonebs but will maintain these every 6 while awake only given #2 with notable tachycardia with coughing and suspected would increase with aerosol ministrations, PRN albu terol, IV methylprednisolone, HOB, IS parameters, IV Azithromcyin with pending sputum cultures as well as requested respiratory viral panel. (2) New onset, Paroxsymal atrial fibrillation w/ Intermittent RVR: EKG in ED w/ atrial fibrillation, rate controlled however in the emergency room with intermittent coughing fits patient with RVR. Will maintain on telemetry, obtain cardiac enzyme serial set, obtain magnesium level, obtain ECHO, obtain TSH level. CHADs scoring low, will maintain on aspirin therapy. Given suspect onset likely secondary to #1 we will continue treatment as noted above with deferred rate control agent at this time especially given concurrent COPD but low threshold to add. (3) Tobacco Abuse: Encouraged cessation, inpatient consultation per RT, NR if desired. (4) Chronic hepatitis C: Patient does admit to cannabis usage frequently, encourage cessation especially given hepatitis C status now but sober x1 month. If continues to remain sober and could become clean would be a candidate in the future for treatment. (5) Severe protein calorie malnutrition: Evidenced per BMI, habitus, obvious muscle and fat loss, nutrition consulted. (6) DVT prophylaxis: SCD, Lovenox. Code Visit Inpatient E&M: 85491 Init Hosp L3
--- NOTE | 2019-09-07 14:16 | ECHOD_ITS ---
Reason For Study: Afib/Flutter Procedure This was a 2D Doppler, Color Flow transthoracic echocardiogram. Exam performed portable in patient room. Left Ventricle Normal LV size. Concentric left ventricular hypertrophy. The estimated ejection fraction is 55 %. No evidence for diastolic dysfunction. No regional wall motion abnormalities noted. Right Ventricle Normal RV size. There appears to be RVH. Normal systolic function. Atria Normal left atrium. Normal right atrium. No doppler evidence for ASD. Mitral Valve There is no mitral valve stenosis. Mild (1+) mitral valve insufficiency. Tricuspid Valve There is no tricuspid stenosis. Trivial tricuspid valve insufficiency. Unable to estimate RV systolic pressure due to insufficient tricuspid regurgitant envelope. Aortic Valve Trisinus/trileaflet aortic valve. There is no aortic stenosis. No aortic valve insufficiency. Pulmonic Valve There is no pulmonic valvular stenosis. No pulmonic valve insufficiency. Great Vessels Normal aortic root. Pericardium/Pleural No pericardial effusion. MMode/2D Measurements & Calculations LVIDd: 3.7 cm IVSd: 1.2 cm Ao root diam: 4.5 cm LVIDs: 2.7 cm LVPWd: 1.1 cm RVDd: 4.2 cm FS: 26.9 % LAV(MOD-bp): 41.9 ml LA A4 area: 16.2 cm2 RA A4 area: 15.4 cm2 LAV(MOD-bp) Indexed: 22.8 ml/m2 LAV(MOD-sp2): 40.4 ml LAV(MOD-sp4): 42.7 ml Doppler Measurements & Calculations MV E max holly: 74.8 cm/sec Ao V2 max: 66.2 cm/sec LV V1 max: 66.0 cm/sec Ao max P.8 mmHg LV V1 max P.8 mmHg PA V2 max: 63.6 cm/sec Interpretation Summary The estimated ejection fraction is 55 %. No evidence for diastolic dysfunction. There appears to be RVH Mild (1+) mitral valve insufficiency. Ordering Physician: Beth Mejia Referring Physician: Beth Mejia Performed By: Renan Baez RCS
[2019-09-07 14:42] LABS: Magnesium 1.5 mg/dL (1.6-2.6)
[2019-09-07] MEDS: Ipratropium/Albuterol Sulfate 3 ML AMPUL.NEB INHALATION (15:14)
--- NOTE | 2019-09-07 15:17 | EKG12_ITS ---
Test Reason : CP Blood Pressure : / mmHG Vent. Rate : 092 BPM Atrial Rate : 102 BPM P-R Int : 000 ms QRS Dur : 078 ms QT Int : 384 ms P-R-T Axes : 000 081 072 degrees QTc Int : 474 ms Atrial fibrillation with premature ventricular or aberrantly conducted complexes Abnormal ECG No previous ECGs available Confirmed by LOLA RUIZ, KIRSTIN ([id number]), sports editor ALICJA SRIVASTAVA ([id number]) on 09/13/2019 3:20:53 PM Referred By: Beth Mejia Confirmed By:KIRSTIN DAVILA MD
[2019-09-07] MEDS: 0.9% Normal Saline 1,000 ML 100 ML IV (15:32)
[2019-09-07] MEDS: MethylPREDNISolone 125 MG/2 ML Vial IV (15:32)
[2019-09-07] MEDS: guaiFENesin 10 ML UDC (200MG/10ML) 20 ML PO (17:37)
[2019-09-07] MEDS: Famotidine 20 MG Tablet PO (21:14)
[2019-09-07] MEDS: 0.9% Saline Lock 10 ML Syringe IV (21:14)
[2019-09-08] VITALS (14 sets, daily range): BP systolic 96–125; BP diastolic 53–72; PULSE 72–139; RESP 16–20; TEMP 36.5–37; O2SAT 96–100
[2019-09-08] MEDS: guaiFENesin 10 ML UDC (200MG/10ML) 20 ML PO ×3 (02:31→16:04)
[2019-09-08] MEDS: 0.9% Saline Lock 10 ML Syringe IV ×2 (05:52→21:16)
--- NOTE | 2019-09-08 05:55 | EKG12_ITS ---
Test Reason : AM EKG Blood Pressure : / mmHG Vent. Rate : 072 BPM Atrial Rate : 072 BPM P-R Int : 168 ms QRS Dur : 092 ms QT Int : 418 ms P-R-T Axes : 076 077 078 degrees QTc Int : 457 ms Normal sinus rhythm Normal ECG When compared with ECG of 07-SEP-2019 14:28, MANUAL COMPARISON REQUIRED, DATA IS UNCONFIRMED Confirmed by LOLA RUIZ, KIRSTIN ([id number]), book or script editor ALICJA SRIVASTAVA ([id number]) on 09/13/2019 3:22:24 PM Referred By: Beth Mejia Confirmed By:KIRSTIN DAVILA MD
[2019-09-08 06:48] LABS: Absolute Lymphocyte Count 1.22 X10^3/uL (0.83-4.51); Absolute Neutrophil Count 11.9 X10^3/uL (2.0-7.7); Basophil# 0.03 X10^3/uL; Basophil% 0.2 % (0-1); Hematocrit 42.6 % (40-54); Hemoglobin 14.8 g/dL (13.0-16.5); Lymphocyte # 1.22 X10^3/ul (4.0); Lymphocyte % 9.1 % (19-41); Mean Corp Hgb Conc 34.7 g/dL (32-36); Mean Corpuscular Volume 89.1 fL (80-94); Mean Platelet Vol. 9.7 fl (6.2-12.0); Monocyte# 0.21 X10^3/uL; Monocyte% 1.6 % (0-10); NRBC Flagged by Analyzer 0 % (0-5); Neutrophil # 11.88 X10^3/uL (2.7-7.7); Neutrophil % 88.4 % (47-70); Platelet Count 359 K/mm3 (150-450); RBC Distribution Width CV 11.9 % (11.6-14.6); RBC Distribution Width SD 38.9 fl (35.1-43.9); Red Blood Count 4.78 M/mm3 (4.6-6.2); White Blood Count 13.4 K/mm3 (4.4-11.0)
[2019-09-08] MEDS: Ipratropium/Albuterol Sulfate 3 ML AMPUL.NEB INHALATION ×3 (06:48→18:55)
[2019-09-08 07:20] LABS: Anion Gap 8 (5-15); BUN 10 mg/dL (7-18); BUN/Creat Ratio 10.7 RATIO (10-20); Calcium,Total 9.2 mg/dL (8.5-10.1); Chloride 106 mmol/L (98-107); Cholesterol 141 mg/dL (200); Creatinine, Serum 0.93 mg/dL (0.70-1.30); EST Glomerular Filtration Rate 88 mL/min (>60); Est Glom Filt Rate - Afr Amer 106 mL/min (>60); Estimated Creatinine Clearance 73.65 ml/min; Glucose 159 mg/dL (74-106); High Density Lipoprotein 54 mg/dL; Sodium Level 136 mmol/L (136-145); Thyroid Stim Hormone (TSH) 0.43 uIU/mL (0.358-3.74); Triglycerides 44 mg/dL; Very Low Density Lipoprotein 9 mg/dL (5-40)
[2019-09-08] MEDS: Aspirin 325 MG Tablet PO (08:19)
[2019-09-08] MEDS: Famotidine 20 MG Tablet PO ×2 (08:20→21:17)
[2019-09-08] MEDS: Enoxaparin 40 MG/0.4 ML Syringe SC (08:20)
--- NOTE | 2019-09-08 10:03 | CASEMGMT ---
CUCA IRVIN assessment: Face to Face with patient for initial transition planning/care coordination assessment. CUCA IRVIN introduced self and role at [facility], pt voices understanding and consents to assessment at this time. Pt is sitting up in bed in no distress at this time. Pt is A/Ox4 at this time and answers all questions appropriately at this time. Care providers, pharmacy, and demographics verified at this time. PCP: [facility] Specialists: Pt states no current specialists. Preferred Pharmacy: [facility] Insurance: [facility] A/B, SILVIA Prescription Benefit: SILVIA Living Will/HPOA: Pt states that his daughter is working on LW/HPOA and declines need for info or to complete at this time. LNOK: Val Alcala, daughter Living Arrangements: Pt states lives alone in RV with 3 steps in and states no concerns at home at this time. Pt states that daughter lives '3 trailers up' and she assists pt, if needed. Pt states is independent with ADL's. Transportation: Pt states daughter drives and states no transportation concerns at this time. DME/HHC: Pt has the following DME: cane, walker, grab bars, and nebulizer from [facility]. Pt states no need for any further DME at this time. Pt states no hx of HHC or SNF in the past. CM to follow for home oxygen. Pt states no concerns with going home at time of discharge. Pt is disabled. Pt states quit drinking ETOH a month ago and states used to drink daily. Pt states is now trying to quit smoking and currently smokes about a pack/week. Pt states no further concerns/needs at this time. CM to follow for home oxygen and for any further discharge planning/needs. Advised pt to ask for CM if any further questions/concerns/needs arise, voices understanding. Pt Goal: Home Plan[place] [facility] IRV[facility]
--- NOTE | 2019-09-08 10:34 | PCM.PROGNOTE ---
<Evelyn Moreno - Last Filed: 09/08/19 10:50> Patient Problems: Active and Suspected Problems (This Medical Record has been edited. Action required.) COPD exacerbation (Acute) Atrial fibrillation with RVR (Acute) Subjective: Patient seen and examined. Reports continued cough and shortness of breath. Denies fever, chills. Denies palpitations, chest pain. - Physical Exam Vitals/I&O's: Vital Signs Temp Pulse Resp BP Pulse Ox 98.3 F 94 16 125/68 H 97 09/08/19 08:06 09/08/19 08:06 09/08/19 08:06 09/08/19 08:06 09/08/19 08:06 Oxygen Delivery Method Room Air Weight: 135 lb 14.4 oz Body Mass Index (BMI) 17.4 Intake and Output for Last 24 Hours 09/06/19 09/07/19 09/08/19 23:59 23:59 23:59 Intake Total 1104.00 / 1104.00 464.17 / 464.17 Balance 1104.00 / 1104.00 464.17 / 464.17 General: Alert, Oriented x3, Cooperative HEENT: Atraumatic, PERRLA, EOMI, Normocephalic Neck: Supple, No JVD, Negative Carotid Bruits Lungs: Diminished, Wheezes Cardiovascular: Regular rate, Regular Rhythm, Normal S1, Normal S2, No murmurs Abdomen: Bowel Sounds Present, Soft, Non Tender, Non-Distended Extremities: No clubbing, No cyanosis, No edema, Capillary Refill Less than 3 Seconds Skin: No rashes, No breakdown Musculoskeletal: No Tenderness to Palpation of Joints or Extremities Neurological: Cranial nerves II-XII grossly intact, Neuro grossly intact Psych/Mental Status: Normal Affect, Appropriate Laboratory Results 09/07/19 10:04: WBC 8.8, RBC 5.16, Hgb 16.3, Hct 45.1, MCV 87.4, MCH 31.6, MCHC 36.1 H, RDW Std Deviation 37.8, RDW Coeff of Tracy 11.7, Plt Count 383, MPV 10.2, Immature Gran % (Auto) 0.600, Neut % (Auto) 52.8, Lymph % (Auto) 35.4, Knox % (Auto) 8.9, Eos % (Auto) 1.2, Baso % (Auto) 1.1 H, Absolute Neuts (auto) 4.7, Absolute Lymphs (auto) 3.13, Nucleated RBC % 0 09/07/19 10:04: Sodium 136, Potassium 4.1, Chloride 104, Carbon Dioxide 25.0, Anion Gap 7, BUN 6 L, Creatinine 0.94, Estim Creat Clear Calc 72.22, Est GFR (MDRD) Af Amer 105, Est GFR (MDRD) Non-Af 87, BUN/Creatinine Ratio 6.4 L, Glucose 105, Calcium 10.0, Troponin I < 0.015 09/07/19 10:04: Magnesium 1.5 L 09/07/19 14:50: Troponin I < 0.015 09/07/19 17:40: Troponin I < 0.015 09/08/19 06:29: Sodium 136, Potassium 4.0, Chloride 106, Carbon Dioxide 22.0, Anion Gap 8, BUN 10, Creatinine 0.93, Estim Creat Clear Calc 73.65, Est GFR (MDRD) Af Amer 106, Est GFR (MDRD) Non-Af 88, BUN/Creatinine Ratio 10.7, Glucose 159 H, Calcium 9.2, Triglycerides 44, Cholesterol 141, LDL Cholesterol 78, VLDL Cholesterol 9, HDL Cholesterol 54, TSH 0.43 09/08/19 06:29: WBC 13.4 H, RBC 4.78, Hgb 14.8, Hct 42.6, MCV 89.1, MCH 31.0, MCHC 34.7, RDW Std Deviation 38.9, RDW Coeff of Tracy 11.9, Plt Count 359, MPV 9.7, Immature Gran % (Auto) 0.700, Neut % (Auto) 88.4 H, Lymph % (Auto) 9.1 L, Knox % (Auto) 1.6, Eos % (Auto) 0.0, Baso % (Auto) 0.2, Absolute Neuts (auto) 11.9 H, Absolute Lymphs (auto) 1.22, Nucleated RBC % 0 Current Medications Acetaminophen (Tylenol) 650 mg PO Q6H PRN PRN PRN Reason: Non-cardiac pain (mod-severe) Al Hydroxide/Mg Hydroxide (Mylanta Ii) 15 - 30 ml PO Q4H PRN PRN PRN Reason: INDIGESTION Albuterol Sulfate (Ventolin Aerosols) 2.5 mg INHALATION Q2H PRN PRN PRN Reason: dyspnea, wheezing Albuterol/Ipratropium (Duoneb) 3 ml INHALATION Q6HWA.RT [facility] Last Admin: 09/08/19 06:48 Dose: 3 ml Documented by: Aspirin (Aspirin) 325 mg PO DAILY@0800 [facility] Last Admin: 09/08/19 08:19 Dose: 325 mg Documented by: Dextrose (D50w Syringe) 0 gm IV X1 PRN; Protocol PRN Reason: Hypoglycemia Enoxaparin Sodium (Lovenox) 40 mg SC DAILY@1000 [facility] Last Admin: 09/08/19 08:20 Dose: 40 mg Documented by: Famotidine (Pepcid) 20 mg PO BID [facility] Last Admin: 09/08/19 08:20 Dose: 20 mg Documented by: Glucagon () 1 mg IM .X1 PRN PRN Reason: Hypoglycemia Guaifenesin (Robitussin) 20 ml PO Q4H PRN PRN PRN Reason: COUGH Last Admin: 09/08/19 08:20 Dose: 20 ml Documented by: Hydralazine HCl (Apresoline Iv) 10 mg IV Q4H PRN PRN PRN Reason: SBP > 160 Azithromycin 500 mg/ Dextrose 255 mls @ 250 mls/hr IV Q24 [facility] Stop: 09/09/19 11:02 Last Infusion: 09/08/19 09:10 Dose: 0 mls/hr Documented by: Magnesium Hydroxide (Milk Of Magnesia) 30 ml PO DAILY PRN PRN Reason: Constipation Melatonin (Melatonin) 3 mg PO QHS PRN PRN PRN Reason: INSOMNIA Methylprednisolone (Solu-Medrol) 40 mg IV Q8 [facility] Last Admin: 09/08/19 05:52 Dose: 40 mg Documented by: Nitroglycerin (Nitrostat) 0.4 mg SUBLINGUAL Q5M PRN PRN Reason: CARDIAC/CHEST PAIN Ondansetron HCl (Zofran) 4 mg IV Q8H PRN PRN PRN Reason: NAUSEA/VOMITING Sodium Chloride () 10 - 40 ml IV UD PRN PRN Reason: SALINE FLUSH Last Admin: 09/08/19 05:52 Dose: 20 ml Documented by: Throat Lozenges (Cepacol Sore Throat Lozenge) 1 lozenge MUCOUS MEM Q2H PRN PRN PRN Reason: Sore Throat/Cough Medical Necessity - Tobacco Use Smoking Status: Current every day smoker Tobacco Use: Cigarettes Assessment/Plan All Active Problems (This Medical Record has been edited. Action required.) COPD exacerbation (Acute) Atrial fibrillation with RVR (Acute) 1. Acute on chronic COPD exacerbation-chest x-ray without acute process. Respiratory panel pending. Continue IV Solu-Medrol. Albuterol and DuoNeb aerosols. IV azithromycin. Walking pulse ox prior to discharge. 2. New onset paroxysmal atrial fibrillation with RVR-currently sinus rhythm. Troponin negative. Echocardiogram demonstrates an EF of 55%, RVH, mild mitral valve insufficiency. Suspect onset secondary to #1. Continue aspirin. 3. Tobacco dependence-encourage cessation. Declines nicotine replacement patch. 4. Chronic hepatitis C-outpatient follow-up. 5. Severe protein calorie malnutrition-nutrition consult. 6. Former ETOH/marijuana abuse-reports he quit 1 month ago. Encouraged continued cessation. DVT prophylaxis-Lovenox subcu This patient was seen by ANNEMARIE Araujo under the supervision of Dr. Viveros. <Hanna Viveros - Last Filed: 09/08/19 14:37> - Physical Exam Vitals/I&O's: Vital Signs Temp Pulse Resp BP Pulse Ox 98.6 F 101 H 16 96/54 L 96 09/08/19 14:03 09/08/19 14:03 09/08/19 14:03 09/08/19 14:03 09/08/19 14:08 Oxygen Delivery Method Room Air Weight: 135 lb 14.393 oz Body Mass Index (BMI) 17.4 Orthostatic Vital Signs Start: 09/08/19 12:29 Freq: q24h Status: Active Protocol: Activity Type Activity Date Activity User E-Sign Co-Sign Detail Recorded Client Recorded Date Recorded By Document 09/08/19 12:00 [facility] [id number] 09/08/19 12:30 BAM 09/08/19 12:00 Orthostatic Vitals Standing -Blood Pressure (90/60-120/80) 100/68 -Extremity Use Right Arm -Pulse Rate (60-100) 97 Sitting -Blood Pressure (90/60-120/80) 107/66 -Extremity Use Right Arm -Pulse Rate (60-100) 75 Lying -Blood Pressure (90/60-120/80) 109/53 L -Extremity Use Right Arm -Pulse Rate (60-100) 86 Intake and Output for Last 24 Hours 09/06/19 09/07/19 09/08/19 23:59 23:59 23:59 Intake Total 1104.00 / 1104.00 464.17 / 464.17 Balance 1104.00 / 1104.00 464.17 / 464.17 Microbiology Past 72 Hours 09/07/19 15:29 Mucosa - Nasopharyngeal Respiratory Panel (PCR) - Final Rhinovirus 09/08/19 05:54 Sputum, Expectorated/Coughed Gram Stain - Final Laboratory Results 09/07/19 10:04: Magnesium 1.5 L 09/07/19 14:50: Troponin I < 0.015 09/07/19 17:40: Troponin I < 0.015 09/08/19 06:29: Sodium 136, Potassium 4.0, Chloride 106, Carbon Dioxide 22.0, Anion Gap 8, BUN 10, Creatinine 0.93, Estim Creat Clear Calc 73.65, Est GFR (MDRD) Af Amer 106, Est GFR (MDRD) Non-Af 88, BUN/Creatinine Ratio 10.7, Glucose 159 H, Calcium 9.2, Triglycerides 44, Cholesterol 141, LDL Cholesterol 78, VLDL Cholesterol 9, HDL Cholesterol 54, TSH 0.43 09/08/19 06:29: WBC 13.4 H, RBC 4.78, Hgb 14.8, Hct 42.6, MCV 89.1, MCH 31.0, MCHC 34.7, RDW Std Deviation 38.9, RDW Coeff of Tracy 11.9, Plt Count 359, MPV 9.7, Immature Gran % (Auto) 0.700, Neut % (Auto) 88.4 H, Lymph % (Auto) 9.1 L, Knox % (Auto) 1.6, Eos % (Auto) 0.0, Baso % (Auto) 0.2, Absolute Neuts (auto) 11.9 H, Absolute Lymphs (auto) 1.22, Nucleated RBC % 0 Current Medications Acetaminophen (Tylenol) 650 mg PO Q6H PRN PRN PRN Reason: Non-cardiac pain (mod-severe) Al Hydroxide/Mg Hydroxide (Mylanta Ii) 15 - 30 ml PO Q4H PRN PRN PRN Reason: INDIGESTION Albuterol Sulfate (Ventolin Aerosols) 2.5 mg INHALATION Q2H PRN PRN PRN Reason: dyspnea, wheezing Albuterol/Ipratropium (Duoneb) 3 ml INHALATION Q6HWA.RT [facility] Last Admin: 09/08/19 13:05 Dose: 3 ml Documented by: Aspirin (Aspirin) 325 mg PO DAILY@0800 [facility] Last Admin: 09/08/19 08:19 Dose: 325 mg Documented by: Dextrose (D50w Syringe) 0 gm IV X1 PRN; Protocol PRN Reason: Hypoglycemia Enoxaparin Sodium (Lovenox) 40 mg SC DAILY@1000 [facility] Last Admin: 09/08/19 08:20 Dose: 40 mg Documented by: Famotidine (Pepcid) 20 mg PO BID [facility] Last Admin: 09/08/19 08:20 Dose: 20 mg Documented by: Glucagon () 1 mg IM .X1 PRN PRN Reason: Hypoglycemia Guaifenesin (Robitussin) 20 ml PO Q4H PRN PRN PRN Reason: COUGH Last Admin: 09/08/19 08:20 Dose: 20 ml Documented by: Hydralazine HCl (Apresoline Iv) 10 mg IV Q4H PRN PRN PRN Reason: SBP > 160 Azithromycin 500 mg/ Dextrose 255 mls @ 250 mls/hr IV Q24 [facility] Stop: 09/09/19 11:02 Last Infusion: 09/08/19 09:10 Dose: 0 mls/hr Documented by: Magnesium Hydroxide (Milk Of Magnesia) 30 ml PO DAILY PRN PRN Reason: Constipation Melatonin (Melatonin) 3 mg PO QHS PRN PRN PRN Reason: INSOMNIA Methylprednisolone (Solu-Medrol) 40 mg IV Q8 [facility] Last Admin: 09/08/19 13:40 Dose: 40 mg Documented by: Nitroglycerin (Nitrostat) 0.4 mg SUBLINGUAL Q5M PRN PRN Reason: CARDIAC/CHEST PAIN Ondansetron HCl (Zofran) 4 mg IV Q8H PRN PRN PRN Reason: NAUSEA/VOMITING Sodium Chloride () 10 - 40 ml IV UD PRN PRN Reason: SALINE FLUSH Last Admin: 09/08/19 05:52 Dose: 20 ml Documented by: Throat Lozenges (Cepacol Sore Throat Lozenge) 1 lozenge MUCOUS MEM Q2H PRN PRN PRN Reason: Sore Throat/Cough Assessment/Plan Patient seen by Evelyn SHARPE under my supervision Patient was admitted with a complaitn of shortness of breath and pleuritic chest pain as well as cough productive of greenish sputum and wheezing. Has been managed for acute COPD exacerbation. There is also suspicion for new onset paroxysmal A. fib based on EKG findings. Patient seen and examined. He feels much better today. Shortness of breath has improved and wheezing is also improved. Pleuritic chest pain is resolved. He denies any lightheadedness or dizziness fever or chills. Review of systems otherwise negative. Labs and vitals reviewed. o/e: Vital Signs Height 6 ft 2 in Weight: 135 lb 14.393 oz Weight in Pounds 135.9 lbs Pulse Ox 96 Temperature 98.6 F Pulse Rate [Standing] 97 Pulse Rate [Sitting] 75 Pulse Rate [Lying] 86 Pulse Rate 101 Respiratory Rate 16 Blood Pressure [Standing] 100/68 Blood Pressure [Sitting] 107/66 Blood Pressure [Lying] 109/53 Blood Pressure 96/54 Blood Pressure Position Semi-Fowlers General: Alert, Oriented x3, Cooperative HEENT: Atraumatic, PERRLA, EOMI, Normocephalic Neck: Supple, No JVD, Negative Carotid Bruits Lungs: Diminished, minimal wheezing bilaterally. on room air Cardiovascular: Regular rate, Regular Rhythm, Normal S1, Normal S2, No murmurs Abdomen: Bowel Sounds Present, Soft, Non Tender, Non-Distended Extremities: No clubbing, No cyanosis, No edema, Capillary Refill Less than 3 Seconds Skin: No rashes, No breakdown Musculoskeletal: No Tenderness to Palpation of Joints or Extremities Neurological: Cranial nerves II-XII grossly intact, Neuro grossly intact Psych/Mental Status: Normal Affect, Appropriate Plan is to continue with breathing treatments and IV solumedrol. continue IV azithromycin. 2D echo showed EF of 55%, with mild mitral valve insufficiency and RVH. titrate oxygen to maintain sats >90%. Respiratory panel positive for rhinovirus. Sputum for Gram stain showed 3+ gram-positive rods and 2+ gram-positive cocci with speciation pending was 1+ WBCs. Rest of management as per Evelyn Josh, GOVERNMENT AFFAIRS SPECIALIST-C's notes which I reviewed and endorsed. Code Visit Inpatient E&M: 10711 Subs Hosp L2
[2019-09-08] MEDS: MELATONIN 3 MG TABLET PO (21:17)
[2019-09-09 03:06] VITALS: PULSE 73
[2019-09-09 03:12] VITALS: BP 119/63; PULSE 85; RESP 21; TEMP 36.2; O2SAT 96
[2019-09-09] MEDS: guaiFENesin 10 ML UDC (200MG/10ML) 20 ML PO (03:24)
[2019-09-09] MEDS: 0.9% Saline Lock 10 ML Syringe IV (05:48)
[2019-09-09 07:00] VITALS: PULSE 81
[2019-09-09 07:02] VITALS: PULSE 89; RESP 18; O2SAT 98
[2019-09-09] MEDS: Ipratropium/Albuterol Sulfate 3 ML AMPUL.NEB INHALATION (07:02)
[2019-09-09 08:07] VITALS: BP 115/72; PULSE 96; RESP 16; TEMP 36.4; O2SAT 96
[2019-09-09] MEDS: Aspirin 325 MG Tablet PO (08:15)
[2019-09-09] MEDS: Enoxaparin 40 MG/0.4 ML Syringe SC (08:15)
[2019-09-09] MEDS: Famotidine 20 MG Tablet PO (08:15)
--- NOTE | 2019-09-09 09:48 | DCINST_ITS ---
- Discharge Diagnoses Current Active Problems: Current Active and Chronic Problems (This Medical Record has been edited. Action required.) COPD exacerbation (Acute) Atrial fibrillation with RVR (Acute) Tobacco use (Chronic) Cannabis use, uncomplicated (Chronic) Severe protein-calorie malnutrition (Chronic) You will use the following diet at home:: No restrictions Discharge Activity: Return to Normal Activity Call your doctor if you observe: Shortness of breath, Dizziness, Fainting spells, Chest pain, Increased palpitations (irregular heartbeat) Allergies/Adverse Reactions: Allergies codeine Allergy (Verified 09/07/19 09:46) Rash Medications to take at Discharge Albuterol Aerosols [Ventolin Aerosols] 2.5 mg INHALATION Q4H PRN PRN 09/07/19 Albuterol Sulfate [Albuterol Sulfate Hfa] 1 - 2 inhaler PO 4X/DAY PRN PRN 09/07/19 Budesonide/Formoterol 160/4.5 [Symbicort 160/4.5 Mcg Inhaler (SP)] 2 inhaler PO BID 09/07/19 cycloBENZAPRine HCl [Flexeril] 10 mg PO TID PRN PRN 09/07/19 Aspirin E.C. [Ecotrin] 81 mg PO DAILY@0800 #30 tab 09/09/19 Prednisone See Taper PO DAILY #30 tab 09/09/19 The following prescriptions were given: Aspirin E.C. [Ecotrin] 81 mg PO DAILY@0800 #30 tab Transmission Status: Pending to [facility][id number] Prednisone See Taper PO DAILY #30 tab Transmission Status: Pending to [facility]/pharmacy #[id number] Primary Care Physician: Sincere Perea MD [Primary Care Provider] - Please follow up with your Primary Care Physician in: 1 Week Test Results: Test results from this visit will be discussed in further detail at your follow- up appointment, if applicable. Please Follow Up With: [facility] - [phone] When: Call to establish/follow up for paroxysmal atrial fibrillation Proposed Discharge Date: 09/09/19
--- NOTE | 2019-09-09 09:51 | DS.PCM_ITS ---
<Evelyn Moreno - Last Filed: 09/09/19 09:59> Discharge Date and Diagnosis Date of Admission: 09/07/19 Date of Discharge: 09/09/19 - Primary Discharge Diagnosis Active and Suspected Problems (This Medical Record has been edited. Action required.) 1. Acute exacerbation of COPD secondary to acute rhinovirus 2. New onset paroxysmal atrial fibrillation with RVR 3. Tobacco dependence 4. Chronic hepatitis C 5. Severe protein calorie malnutrition 6. Former ETOH/marijuana abuse - Secondary Discharge Diagnosis Chronic Problems (This Medical Record has been edited. Action required.) Tobacco use (Chronic) Cannabis use, uncomplicated (Chronic) Severe protein-calorie malnutrition (Chronic) History of alcohol abuse (Chronic) COPD (chronic obstructive pulmonary disease) (Chronic) Ongoing tobacco abuse one pack a day Hospital Course and Treatment Imaging Results: Diagnostic Data Chest X-Ray 09/07/19 11:39 IMPRESSION: Hyperinflation. Scattered calcified granulomas. Electronically Signed: Rizwan Luz Marina, at 12:44 EST , Service support , Operations: None Procedures: 2-D Echocardiogram Summary of Care Provided: The patient is a 59 year old M admitted 09/07/2019 due to cough, wheezing and palpitations. 1. Acute exacerbation of COPD secondary to acute rhinovirus-chest x-ray without acute process. Respiratory panel positive for rhinovirus. Completed course of azithromycin. Sputum culture showed 3+ gram-positive rods, 2+ gram-positive cocci and 1+ WBCs. Final pending. Afebrile, no leukocytosis on admission. Discharge on prednisone taper. Patient will continue to use albuterol aerosol as needed and Symbicort inhaler. Ambulatory pulse ox prior to discharge and patient did not require supplemental oxygen with ambulation. Follow-up with primary care provider in 1 week. Recommend routine follow-up with pulmonary medicine as well. 2. New onset paroxysmal atrial fibrillation with RVR-currently sinus rhythm. Troponin negative. Echocardiogram demonstrates an EF of 55%, RVH, mild mitral valve insufficiency. Suspect onset secondary to #1. CHADs score 0. Continue daily baby aspirin. Recommend follow-up with [facility] at discharge. 3. Tobacco dependence-encourage cessation. 4. Chronic hepatitis C-outpatient follow-up. 5. Severe protein calorie malnutrition-nutrition consult. 6. Former ETOH/marijuana abuse-reports he quit 1 month ago. Encouraged continued cessation. General: Alert, Oriented x3, Cooperative HEENT: Atraumatic, PERRLA, EOMI, Normocephalic Neck: Supple, No JVD, Negative Carotid Bruits Lungs: Diminished, Wheezes Cardiovascular: Regular rate, Regular Rhythm, Normal S1, Normal S2, No murmurs Abdomen: Bowel Sounds Present, Soft, Non Tender, Non-Distended Extremities: No clubbing, No cyanosis, No edema, Capillary Refill Less than 3 Seconds Skin: No rashes, No breakdown Musculoskeletal: No Tenderness to Palpation of Joints or Extremities Neurological: Cranial nerves II-XII grossly intact, Neuro grossly intact Psych/Mental Status: Normal Affect, Appropriate Patient seen and examined prior to discharge. Physical assessment as noted above. Patient is stable for discharge with follow up recommendations as noted above. This patient was seen by ANNEMARIE Araujo under the supervision of Dr. Viveros. - Physical Exam Vitals/I&O's: Vital Signs Temp Pulse Resp BP Pulse Ox 97.5 F L 96 16 115/72 96 09/09/19 08:07 09/09/19 08:07 09/09/19 08:07 09/09/19 08:07 09/09/19 08:07 Oxygen Delivery Method Room Air Weight: 135 lb 14.393 oz Body Mass Index (BMI) 17.4 Orthostatic Vital Signs Start: 09/08/19 12:29 Freq: q24h Status: Active Protocol: Activity Type Activity Date Activity User E-Sign Co-Sign Detail Recorded Client Recorded Date Recorded By Document 09/08/19 12:00 [facility] [id number] 09/08/19 12:30 [facility] 09/08/19 12:00 Orthostatic Vitals Standing -Blood Pressure (90/60-120/80) 100/68 -Extremity Use Right Arm -Pulse Rate (60-100) 97 Sitting -Blood Pressure (90/60-120/80) 107/66 -Extremity Use Right Arm -Pulse Rate (60-100) 75 Lying -Blood Pressure (90/60-120/80) 109/53 L -Extremity Use Right Arm -Pulse Rate (60-100) 86 Intake and Output for Last 24 Hours 09/07/19 09/08/19 09/09/19 23:59 23:59 23:59 Intake Total 1104.00 / 1104.00 861.17 / 861.17 722 / 722 Balance 1104.00 / 1104.00 861.17 / 861.17 722 / 722 Microbiology Past 72 Hours 09/07/19 15:29 Mucosa - Nasopharyngeal Respiratory Panel (PCR) - Final Rhinovirus 09/08/19 05:54 Sputum, Expectorated/Coughed Gram Stain - Final Current Medications Acetaminophen (Tylenol) 650 mg PO Q6H PRN PRN PRN Reason: Non-cardiac pain (mod-severe) Al Hydroxide/Mg Hydroxide (Mylanta Ii) 15 - 30 ml PO Q4H PRN PRN PRN Reason: INDIGESTION Albuterol Sulfate (Ventolin Aerosols) 2.5 mg INHALATION Q2H PRN PRN PRN Reason: dyspnea, wheezing Albuterol/Ipratropium (Duoneb) 3 ml INHALATION Q6HWA.RT [facility] Last Admin: 09/09/19 07:02 Dose: 3 ml Documented by: Aspirin (Aspirin) 325 mg PO DAILY@0800 [facility] Last Admin: 09/09/19 08:15 Dose: 325 mg Documented by: Dextrose (D50w Syringe) 0 gm IV X1 PRN; Protocol PRN Reason: Hypoglycemia Enoxaparin Sodium (Lovenox) 40 mg SC DAILY@1000 [facility] Last Admin: 09/09/19 08:15 Dose: 40 mg Documented by: Famotidine (Pepcid) 20 mg PO BID [facility] Last Admin: 09/09/19 08:15 Dose: 20 mg Documented by: Glucagon () 1 mg IM .X1 PRN PRN Reason: Hypoglycemia Guaifenesin (Robitussin) 20 ml PO Q4H PRN PRN PRN Reason: COUGH Last Admin: 09/09/19 03:24 Dose: 20 ml Documented by: Hydralazine HCl (Apresoline Iv) 10 mg IV Q4H PRN PRN PRN Reason: SBP > 160 Azithromycin 500 mg/ Dextrose 255 mls @ 250 mls/hr IV Q24 [facility] Stop: 09/09/19 11:02 Last Infusion: 09/09/19 09:48 Dose: Infused Documented by: Magnesium Hydroxide (Milk Of Magnesia) 30 ml PO DAILY PRN PRN Reason: Constipation Melatonin (Melatonin) 3 mg PO QHS PRN PRN PRN Reason: INSOMNIA Last Admin: 09/08/19 21:17 Dose: 3 mg Documented by: Methylprednisolone (Solu-Medrol) 40 mg IV Q8 [facility] Last Admin: 09/09/19 05:48 Dose: 40 mg Documented by: Nitroglycerin (Nitrostat) 0.4 mg SUBLINGUAL Q5M PRN PRN Reason: CARDIAC/CHEST PAIN Ondansetron HCl (Zofran) 4 mg IV Q8H PRN PRN PRN Reason: NAUSEA/VOMITING Sodium Chloride () 10 - 40 ml IV UD PRN PRN Reason: SALINE FLUSH Last Admin: 09/09/19 05:48 Dose: 20 ml Documented by: Throat Lozenges (Cepacol Sore Throat Lozenge) 1 lozenge MUCOUS MEM Q2H PRN PRN PRN Reason: Sore Throat/Cough Discharge Diet: No Restrictions Discharge Activity: Return to Normal Activity Call your doctor if you observe: Shortness of breath, Dizziness, Fainting spells, Chest pain, Increased palpitations (irregular heartbeat) Home Medications: Medications to take at Discharge Albuterol Aerosols [Ventolin Aerosols] 2.5 mg INHALATION Q4H PRN PRN 09/07/19 Albuterol Sulfate [Albuterol Sulfate Hfa] 1 - 2 inhaler PO 4X/DAY PRN PRN 09/07/19 Budesonide/Formoterol 160/4.5 [Symbicort 160/4.5 Mcg Inhaler (SP)] 2 inhaler PO BID 09/07/19 cycloBENZAPRine HCl [Flexeril] 10 mg PO TID PRN PRN 09/07/19 Aspirin E.C. [Ecotrin] 81 mg PO DAILY@0800 #30 tab 09/09/19 Prednisone See Taper PO DAILY #30 tab 09/09/19 Following Prescrptions Were Given to Patient: Aspirin E.C. [Ecotrin] 81 mg PO DAILY@0800 #30 tab Transmission Status: Received by [id number] Prednisone See Taper PO DAILY #30 tab Transmission Status: Received by [id number] Primary Care Physician: Sincere Perea MD [Primary Care Provider] - Please follow up with your Primary Care Physician in: 1 Week Please Follow Up With: [facility] - [phone] When: Call to establish/follow up for paroxysmal atrial fibrillation Disposition: Home Minutes spent on discharge:: 35 Patient Condition:: Stable Medical Necessity - Tobacco Use Smoking Status: Current every day smoker Tobacco Use: Cigarettes Meaningful Use Info Meaningful Use Diagnoses (Choose all that apply): None applicable <Hanna Vvieros - Last Filed: 09/09/19 14:39> Discharge Date and Diagnosis - Secondary Discharge Diagnosis Chronic Problems (This Medical Record has been edited. Action required.) Tobacco use (Chronic) Cannabis use, uncomplicated (Chronic) Severe protein-calorie malnutrition (Chronic) History of alcohol abuse (Chronic) COPD (chronic obstructive pulmonary disease) (Chronic) Ongoing tobacco abuse one pack a day Hospital Course and Treatment Summary of Care Provided: Patient seen by Evelyn SHARPE under my supervision The patient is a 59 year old M with a PMH as listed. He was admitted through the ED on 09/07/2019 with a complaint of worsening dyspnea and cough productive of greenish sputum as well as wheezing, rhinorrhea and congestion with assisted diffuse aortic chest pain. EKG done in the ED showed new onset A. fib. Admission in the ED vitals were essentially stable initial troponin was negative. Chest x-ray showed no acute cardiopulmonary findings and EKG was concerning for new onset atrial fibrillation. Was admitted and managed for new onset A. fib with RVR and acute exacerbation of COPD. He was started on breathing treatments and respiratory panel done was positive for rhinovirus. He was also started on IV azithromycin. Sputum culture 3+ gram-positive rods and 2+ gram-positive cocci. Patient's breathing improved markedly on breathing treatments and steroids as well as antibiotics. Echocardiogram done showed EF of 55% with right ventricular hypertrophy and mild mitral valve insufficiency. His Torrey vas score was 0 and patient was commenced on baby aspirin. Heart rate remained controlled and patient improved significantly. He was discharged home on 09/09/2019 and his follow-up with his primary care doctor within 1 week. He was also referred to cardiology to establish care for the A. fib. Patient seen and examined prior to discharge. He feels very well and was scheduled to be discharged. No complaints. Review of systems otherwise negative. Labs and vitals reviewed. Medications reviewed and reconciled o/e: [] Vital Signs Height 6 ft 2 in Weight: 135 lb 14.393 oz Weight in Pounds 135.9 lbs Pulse Ox 98 Temperature 97.5 F Pulse Rate [Standing] 97 Pulse Rate [Sitting] 75 Pulse Rate [Lying] 86 Pulse Rate 96 Respiratory Rate 16 Blood Pressure [Standing] 100/68 Blood Pressure [Sitting] 107/66 Blood Pressure [Lying] 109/53 Blood Pressure 115/72 Blood Pressure Position Sitting General: Alert, Oriented x3, Cooperative HEENT: Atraumatic, PERRLA, EOMI, Normocephalic Neck: Supple, No JVD, Negative Carotid Bruits Lungs: Diminished, minimal wheezing bilaterally. on room air Cardiovascular: Regular rate, Regular Rhythm, Normal S1, Normal S2, No murmurs Abdomen: Bowel Sounds Present, Soft, Non Tender, Non-Distended Extremities: No clubbing, No cyanosis, No edema, Capillary Refill Less than 3 Seconds Skin: No rashes, No breakdown Musculoskeletal: No Tenderness to Palpation of Joints or Extremities Neurological: Cranial nerves II-XII grossly intact, Neuro grossly intact Psych/Mental Status: Normal Affect, Appropriate Of note, patient's heart rate remained well controlled during admission, and in sinus rhythm, even without initiation of beta blockers. On discharge, he was therefore not started on any rate limiting meds; BP was also well controlled, not requiring initiation of any BP meds. He is to follow up with his PCP and to establish care with cardiology. Rest of management as per Evelyn Moreno NP-C's note, which I have reviewed and endorsed. - Physical Exam Vitals/I&O's: Vital Signs Temp Pulse Resp BP Pulse Ox 97.5 F L 96 16 115/72 98 09/09/19 08:07 09/09/19 08:07 09/09/19 08:07 09/09/19 08:07 09/09/19 11:26 Oxygen Delivery Method Room Air Weight: 135 lb 14.393 oz Body Mass Index (BMI) 17.4 Intake and Output for Last 24 Hours 09/07/19 09/08/19 09/09/19 23:59 23:59 23:59 Intake Total 1104.00 / 1104.00 861.17 / 861.17 722 / 722 Balance 1104.00 / 1104.00 861.17 / 861.17 722 / 722 Microbiology Past 72 Hours 09/08/19 05:54 Sputum, Expectorated/Coughed Gram Stain - Final 09/08/19 05:54 Sputum, Expectorated/Coughed Respiratory Culture - Preliminary Appears to be normal respiratory rhoda. Further studies to follow. 09/07/19 15:29 Mucosa - Nasopharyngeal Respiratory Panel (PCR) - Final Rhinovirus Code Visit Inpatient E&M: [id number] Disch Hosp
[2019-09-09 11:26] VITALS: O2SAT 98
--- NOTE | 2019-09-09 11:35 | PHA.DC.MC ---
Pharmacy Service has performed discharge medication reconciliation and counseling for this patient. The patient's discharge medication list was reviewed for discrepancies and discrepancies were resolved. The patient was counseled on the following discharge medications and changes in medications for homegoing were reviewed. 1. PREDNISONE The Reason for Use, instructions for use, and potential side effects were reviewed for all new medications. The patient's questions regarding all of their medications were answered. The patient was able to verbally demonstrate an understanding of their discharge medications. Home Medications Albuterol Aerosols [Ventolin Aerosols] 2.5 mg INHALATION Q4H PRN PRN 09/07/19 Albuterol Sulfate [Albuterol Sulfate Hfa] 1 - 2 inhaler PO 4X/DAY PRN PRN 09/07/19 Budesonide/Formoterol 160/4.5 [Symbicort 160/4.5 Mcg Inhaler (SP)] 2 inhaler PO BID 09/07/19 cycloBENZAPRine HCl [Flexeril] 10 mg PO TID PRN PRN 09/07/19 Aspirin E.C. [Ecotrin] 81 mg PO DAILY@0800 #30 tab 09/09/19 Prednisone See Taper PO DAILY #30 tab 09/09/19
--- NOTE | 2019-09-12 16:11 | CASEMGMT ---
CUCA IRVIN Discharge Follow-Up Phone Call. Lace: 10 Strata: 3 Discharge Date: 09/09/19 Adm Dx: PAF, CP, COPD Exac Call to pt's phone number listed in demographics to inquire about how he has been doing since being discharged from the hospital. Pt's daughter, Val, answered and stated that pt is not available to talk on the phone at this time. She did state that he is doing a lot better. CUCA IRVIN inquired if she is aware if pt has any questions about the discharge instructions, medications, or appts and she states she has not reviewed them herself and is not aware if her father has any questions/concerns. Val did state she would have her father call in to hospital if he does have any questions/concerns/needs. Provided Val with [employer] CM, Vianey Howard's phone number. Mary GILLESPIE RN, CM
== END 2019-09-09 12:36 | disposition home or self-care (01) | DRG 190 ==
LOC: ED 12:50 → PCU 14:02
PROVIDERS: Admitting Provider Family Medicine; Emergency Provider Emergency Medicine; Family Provider Family Medicine; PCP Family Medicine; Referring Provider Family Medicine; Visit Provider Student in an Organized Health Care Education/Training Program
DX: J44.1 Chronic obstructive pulmonary disease with (acute) exacerbation (principal); E43 Unspecified severe protein-calorie malnutrition; Z68.1 Body mass index [BMI] 19.9 or less, adult; I48.0 Paroxysmal atrial fibrillation; B18.2 Chronic viral hepatitis C; F10.11 Alcohol abuse, in remission; F12.11 Cannabis abuse, in remission; B97.89 Other viral agents as the cause of diseases classified elsewhere; F17.210 Nicotine dependence, cigarettes, uncomplicated
CPT/HCPCS: 36415; 71046; 80048; 80061; 83735; 84443; 84484; 85025; 87070; 87205; 87633; 93005; 93306; 94640; 97802; 99251; 99285; 99406; J7030; Q9957; A4216; G0463